=== PATIENT | female | born 1990 | race Caucasian/White ===

== ENCOUNTER 2021-02-08 03:08 | Emergency (ER) | payer MEDICAID, SELFPAY ==
--- NOTE | ~2021-02-08 | CT_ITS ---
EXAMINATION: CT ABDOMEN AND PELVIS WITH CONTRAST CLINICAL INFORMATION: Left flank and lower quadrant pain[place] [facility] [place] None. TECHNIQUE: Contiguous axial thin section helical images of the abdomen and pelvis were performed following the administration of 85 mL of intravenous Omnipaque 350. The data set was reformatted in the coronal and sagittal planes and reviewed on an independent workstation. DLP: 732 mGy-cm. FINDINGS: The visualized lung bases are clear. The visualized portions of the heart are unremarkable. The liver is of normal size and diffuse decreased attenuation without focal lesions nor intrahepatic biliary ductal dilation. A normal gallbladder is identified. There is no wall thickening or discernible pericholecystic fluid. The spleen, pancreas, adrenal glands are unremarkable. Both kidneys are of normal size and attenuation without hydronephrosis or nephrolithiasis. Following the administration of IV contrast, prompt symmetric nephrograms are displayed. There is no abdominal free fluid. There is neither mesenteric nor retroperitoneal lymphadenopathy. Normal unopacified loops of small and large bowel are identified. A normal appendix is identified. There is no pelvic free fluid. The urinary bladder is unremarkable. There is neither pelvic nor inguinal lymphadenopathy. Bone windows: Neither sclerotic nor lytic bone lesions are identified. CT/CT abdomen pelvis w con IMPRESSION: Neither hydronephrosis nor nephrolithiasis. No acute abdominal or pelvic inflammatory or infectious processes. Hepatic steatosis. Automated exposure control (Care Dose) Adjustment of the mA and/or kv according to patient size (this includes techniques or standardized protocols for targeted exams where dose is matched to indication / reason for exam; i.e. extremities or head).
[2021-02-08 03:44] VITALS: BP 148/95; PULSE 91; RESP 18; TEMP 37.1; O2SAT 98; BMI 31.4
[2021-02-08 04:00] VITALS: BP 148/95; PULSE 91; RESP 18; TEMP 37.1; O2SAT 98
[2021-02-08 04:20] LABS: Glucose Urine UA NEG (NEG); Leukocyte Esterase Urine NEG (NEG); Nitrite Urine POS (NEG); Specific Gravity - Urine >= 1.030 (1.005-1.025); Urine Blood 3+ (NEG); Urine Ketones 15 MG/DL (NEG); Urine Protein TRACE MG/DL (NEG-TRACE)
[2021-02-08 04:30] LABS: Appearance Urine HAZY; Bacteria Urine 2+ /LPF; Color Urine YELLOW; Mucus Urine 2+ /LPF; Squamous Epithelial Cell Urine 2+ /LPF
[2021-02-08 04:31] LABS: UPreg QC Valid YES; Urine Pregnancy NEGATIVE (NEGATIVE)
[2021-02-08] MEDS: ondansetron HCL 4 MG/2 ML VIAL IVPUSH (04:57)
[2021-02-08] MEDS: 0.9 % Sodium Chloride 1,000 ML 999 ML IV (04:57)
--- NOTE | 2021-02-08 05:02 | ED_ITS ---
HPI - Abdominal Pain General Chief Complaint: Abdominal Pain Stated Complaint: Flank pain Time Seen by Provider: 02/08/21 04:36 Source: patient Mode of arrival: ambulatory History of Present Illness HPI narrative: 30-year-old female without significant past medical history who presents with onset of left flank pain that radiates into left groin since yesterday with associated nausea and vomiting, chills. Otherwise, she denies any urinary pain/burning/frequency. Related Data Previous Rx's Medication Instructions Recorded ciprofloxacin HCl [Cipro] 500 mg PO Q12H 7 Days #14 tab 02/08/21 ondansetron HCl [Zofran] 4 mg PO Q8H PRN #3 tab 02/08/21 Allergies Allergy/AdvReac Type Severity Reaction Status Date / Time peanut [PEANUT] Allergy Intermediate ITCHINESS Verified 02/08/21 04:56 Review of Systems Review of Systems Pertinent positives and negatives as stated in HPI 10 point review of systems is otherwise negative. Physical Exam Vital Signs: Vital Signs: Last Vital Signs Temp 98.8 F 02/08/21 06:00 Pulse 77 02/08/21 06:00 Resp 15 02/08/21 06:00 BP 136/87 02/08/21 06:00 Pulse Ox 97 02/08/21 06:00 Body Mass Index 31.4 VITAL SIGNS: Reviewed. GENERAL: Well developed, well nourished, in no acute distress. HEAD: Normocephalic/atraumatic EYES: PERRLA, EOMI NOSE: Nares patent bilateral OROPHARYNX: no oral lesions noted, posterior pharynx clear NECK: Supple, no adenopathy LUNGS: Normal breath sounds. No adventitious sounds or accessory muscle use. SpO2<98> CARDIOVASCULAR: Regular rate and rhythm without noted murmurs ABDOMEN: Soft, tenderness at left flank/lower quadrant, non-distended with bowel sounds, no CVA tenderness NEUROLOGIC: Alert and oriented x 4. Course Course Course Narrative: 30-year-old female with history and clinical presentation consistent with renal colic, pyelonephritis, UTI but doubt diverticulitis. Review of all investigations supports pyelonephritis as CT scan is negative for acute findings. Patient received Rocephin here in the emergency department, was able to tolerate oral intake, and discharged on a course of antibiotics to treat the pyelonephritis. MDM - Abdominal Pain Lab Data Result diagrams: 02/08/21 04:53 04/14/21 04:53 Labs: Lab Results 02/08/21 02/08/21 02/08/21 Range/Units 04:10 04:10 04:53 WBC 11.1 H (4.8-10.8) X10*3/uL RBC 4.39 (4.20-5.50) X10*6/uL Hgb 14.3 (12.0-16.0) g/dl Hct 42.6 (37-47) % MCV 97.0 (80-98) fL MCH 32.6 (27.0-33.0) pg MCHC 33.6 (31.0-35.0) g/dl RDW 12.3 (11.0-16.0) % Plt Count 333 (160-400) X10*3/uL MPV 10.0 (9.4-12.3) fL Immature Gran % (Auto) 0.5 H (0.0-0.4) % Neut % (Auto) 79.7 H (45-73) % Lymph % (Auto) 11.9 L (20-40) % [place] % (Auto) 6.8 (2-11) % Eos % (Auto) 0.6 (0-4) % Baso % (Auto) 0.5 (0-2) % Lymph # (Auto) 1.3 (1.2-4.9) X10*3/uL [place] # (Auto) 0.8 (0.1-1.2) X10*3/uL Eos # (Auto) 0.1 (0.0-0.4) X10*3/uL Baso # (Auto) 0.1 (0.0-0.2) X10*3/uL Abs Immat Gran (auto) 0.06 H (0.00-0.03) X10*3/uL Absolute Neuts (auto) 8.8 H (2.0-8.3) X10*3/uL Absolute Nucleated RBC 0.000 (0.0-0.012) X10*3/uL Nucleated RBC % (auto) 0.0 (0.0-0.2) /100WBC Sodium (135-145) mmol/L Potassium (3.3-5.1) mmol/L Chloride (96-108) mmol/L Carbon Dioxide (22-29) mmol/L Anion Gap (12-20) BUN (9-16) mg/dL Creatinine (0.5-1.4) mg/dL Estim Creat Clear Calc Estimated GFR Random Glucose (60-115) mg/dL Calcium (8.4-10.2) mg/dL Total Bilirubin (0.0-1.0) mg/dL AST (5-31) U/L ALT (0-31) U/L Alkaline Phosphatase (39-117) U/L Total Protein (6.5-8.0) g/dL Albumin (3.5-5.0) g/dL Urine Color YELLOW Urine Appearance HAZY Urine pH 6.0 (5.0-8.0) Ur Specific [place] >= 1.030 H (1.005-1.025) Urine Protein TRACE (NEG-TRACE) MG/DL Urine Glucose (UA) NEG (NEG) MG/DL Urine Ketones 15 (NEG) MG/DL Urine Blood 3+ H (NEG) Urine Nitrite POS H (NEG) Ur Leukocyte Esterase NEG (NEG) Urine RBC 76-150 H (0) /HPF Urine WBC 10-14 H (0-4) /HPF Ur Squamous Epith Cells 2+ /LPF Urine Bacteria 2+ /LPF Urine Mucus 2+ /LPF Urine Test NEGATIVE (NEGATIVE) 02/08/21 Range/Units 04:53 WBC (4.8-10.8) X10*3/uL RBC (4.20-5.50) X10*6/uL Hgb (12.0-16.0) g/dl Hct (37-47) % MCV (80-98) fL MCH (27.0-33.0) pg MCHC (31.0-35.0) g/dl RDW (11.0-16.0) % Plt Count (160-400) X10*3/uL MPV (9.4-12.3) fL Immature Gran % (Auto) (0.0-0.4) % Neut % (Auto) (45-73) % Lymph % (Auto) (20-40) % [place] % (Auto) (2-11) % Eos % (Auto) (0-4) % Baso % (Auto) (0-2) % Lymph # (Auto) (1.2-4.9) X10*3/uL [place] # (Auto) (0.1-1.2) X10*3/uL Eos # (Auto) (0.0-0.4) X10*3/uL Baso # (Auto) (0.0-0.2) X10*3/uL Abs Immat Gran (auto) (0.00-0.03) X10*3/uL Absolute Neuts (auto) (2.0-8.3) X10*3/uL Absolute Nucleated RBC (0.0-0.012) X10*3/uL Nucleated RBC % (auto) (0.0-0.2) /100WBC Sodium 139 (135-145) mmol/L Potassium 4.0 (3.3-5.1) mmol/L Chloride 104 (96-108) mmol/L Carbon Dioxide 26 (22-29) mmol/L Anion Gap 13 (12-20) BUN 7 L (9-16) mg/dL Creatinine 0.68 (0.5-1.4) mg/dL Estim Creat Clear Calc 133.0 Estimated GFR > 60 Random Glucose 119 H (60-115) mg/dL Calcium 9.6 (8.4-10.2) mg/dL Total Bilirubin 0.9 (0.0-1.0) mg/dL AST 73 H (5-31) U/L ALT 83 H (0-31) U/L Alkaline Phosphatase 117 (39-117) U/L Total Protein 7.4 (6.5-8.0) g/dL Albumin 4.4 (3.5-5.0) g/dL Urine Color Urine Appearance Urine pH (5.0-8.0) Ur Specific [place] (1.005-1.025) Urine Protein (NEG-TRACE) MG/DL Urine Glucose (UA) (NEG) MG/DL Urine Ketones (NEG) MG/DL Urine Blood (NEG) Urine Nitrite (NEG) Ur Leukocyte Esterase (NEG) Urine RBC (0) /HPF Urine WBC (0-4) /HPF Ur Squamous Epith Cells /LPF Urine Bacteria /LPF Urine Mucus /LPF Urine Test (NEGATIVE) Discharge Plan Discharge Clinical Impression: Pyelonephritis Patient Disposition: Home, Self-Care Instructions: Kidney Infection (ED) Additional Instructions: 1. Tylenol 1000 mg, orally, every 6 hours as needed for pain control. Do not exceed 4000 mg within 24 hours. Prescriptions: New ciprofloxacin HCl [Cipro] 500 mg tablet 500 mg PO Q12H 7 Days Qty: 14 RF: 0 ondansetron HCl [Zofran] 4 mg tablet 4 mg PO Q8H PRN (Reason: nausea and vomiting) Qty: 3 RF: 0 PMFSH Past Medical History Source: nursing notes reviewed Medical History No known health problems Surgical History No history of previous surgery Social History Social History Use of substances other than those prescribed or required for medical reasons: Yes Substance Use Type: Marijuana Substance Use Frequency: Occasionally Advance Directives: No
[2021-02-08 05:04] LABS: MANUAL DIFF FLAG NO
[2021-02-08 05:06] LABS: Basophils Absolute Auto 0.1 X10*3/uL (0.0-0.2); Basophils Percent Auto 0.5 % (0-2); Eosinophils Absolute Auto 0.1 X10*3/uL (0.0-0.4); Eosinophils Percent Auto 0.6 % (0-4); Hematocrit 42.6 % (37-47); Hemoglobin 14.3 g/dl (12.0-16.0); Imm Gran Abs Auto 0.06 X10*3/uL (0.00-0.03); Imm Gran Pct Auto 0.5 % (0.0-0.4); Lymphocytes Absolute Auto 1.3 X10*3/uL (1.2-4.9); Lymphocytes Percent Auto 11.9 % (20-40); Mean Corpuscular HGB Conc 33.6 g/dl (31.0-35.0); Mean Corpuscular Hemoglobin 32.6 pg (27.0-33.0); Monocytes Absolute Auto 0.8 X10*3/uL (0.1-1.2); Monocytes Percent Auto 6.8 % (2-11); Neutrophils Absolute Auto 8.8 X10*3/uL (2.0-8.3); Neutrophils Percent Auto 79.7 % (45-73); Platelet Count 333 X10*3/uL (160-400); Red Blood Count 4.39 X10*6/uL (4.20-5.50); Red Cell Distribution Width 12.3 % (11.0-16.0); White Blood Count 11.1 X10*3/uL (4.8-10.8)
[2021-02-08 05:39] LABS: Alanine Aminotransferase 83 U/L (0-31); Albumin Level 4.4 g/dL (3.5-5.0); Alkaline Phosphatase 117 U/L (39-117); Anion Gap 13 (12-20); Aspartate Amino Transferase 73 U/L (5-31); Bilirubin Total 0.9 mg/dL (0.0-1.0); Blood Urea Nitrogen 7 mg/dL (9-16); Calcium 9.6 mg/dL (8.4-10.2); Carbon Dioxide 26 mmol/L (22-29); Chloride 104 mmol/L (96-108); Estimated Glomerular Filt Rate > 60; Glucose Random 119 mg/dL (60-115); Sodium 139 mmol/L (135-145); Total Protein 7.4 g/dL (6.5-8.0)
[2021-02-08] MEDS: iohexoL 350 MG/ML 100 ML INFUS..BTL 85 ML IV (05:56)
[2021-02-08 06:00] VITALS: BP 136/87; PULSE 77; RESP 15; TEMP 37.1; O2SAT 97
== END 2021-02-08 07:13 | disposition home or self-care (01) ==
PROVIDERS: Emergency Provider Student in an Organized Health Care Education/Training Program; PCP Internal Medicine
DX: N12 Tubulo-interstitial nephritis, not specified as acute or chronic (principal); R10.9 Unspecified abdominal pain; F12.90 Cannabis use, unspecified, uncomplicated
CPT/HCPCS: 36415; 74177; 80053; 81001; 81025; 85025; 96361; 96365; 96374; 96375; 99284; J2405; Q9967

== ENCOUNTER 2021-02-10 07:01 | Emergency (ER) | payer MEDICAID, SELFPAY ==
--- NOTE | ~2021-02-10 | US_ITS ---
EXAMINATION: LEFT RENAL ULTRASOUND CLINICAL INFORMATION: Left flank pain. Rule out hydronephrosis. COMPARISON: CT scan of February 08, 2021 TECHNIQUE: Limited scanning of the left kidney and urinary bladder with right kidney not being studied per request of the emergency room doctor. FINDINGS: Ultrasound of the left kidney demonstrates fullness of the left renal pelvis without definite renal calculi identified.. Review of a CT scan performed yesterday demonstrates that there was a 5 mm calculus within the proximal left ureter. US/US renal LT IMPRESSION: Mild fullness of the left upper collecting system. 5 mm calculus is noted on previous day's CT scan in the proximal left ureter. This critical result was discussed with Yony Sarabia at 9:20 AM on February 10, 2021 and it was ascertained that the content and urgency of the report was understood at the time of direct communication.
[2021-02-10 07:10] VITALS: BP 163/97; PULSE 81; RESP 16; TEMP 36.7; O2SAT 100; BMI 31.4
[2021-02-10 07:35] VITALS: BP 146/87; PULSE 81; RESP 16; TEMP 36.7; O2SAT 99
--- NOTE | 2021-02-10 07:40 | ED.GENADULT ---
HPI - General Adult General Chief complaint: General Medical Stated complaint: KIDNEY INECTION LOWER BACK PAIN Time Seen by Provider: 02/10/21 07:22 Source: patient Mode of arrival: ambulatory Limitations: no limitations History of Present Illness HPI narrative: 30-year-old female who presents emergency department for evaluation of left flank pain. The patient was seen on 02/08/2021 and diagnosed with pyelonephritis. At that time her symptoms included severe left-sided flank pain with nausea. The patient's workup at her 1st ED visit reveals RBCs and WBCs under microscopic evaluation with 2+ bacteria. She had a CT scan of the abdomen pelvis without IV contrast which revealed no hydronephrosis, no hydroureter no renal calculi. She was treated with ceftriaxone IV and given a prescription for Cipro. She states that her flank pain improved but never went away completely. She states that this morning at 3:30 a.m. she woke up with severe left-sided flank pain radiating to her left lower abdomen. The pain is a constant pressure-like pain with shooting pain that is intermittent. The patient states that she had nausea associated with the pain but then it vomiting. She felt cold and clammy but did not have a fever at home. She states that her pain was 8/10 at its worst and is 8/10 in the emergency department. The patient states that she had a urinary tract infection 1 year prior but her symptoms were different at that time. Related Data Previous Rx's Medication Instructions Recorded ciprofloxacin HCl [Cipro] 500 mg PO Q12H 7 Days #14 tab 02/08/21 ondansetron HCl [Zofran] 4 mg PO Q8H PRN #3 tab 02/08/21 oxycodone 5 mg PO Q4H PRN #14 tab 02/10/21 Allergies Allergy/AdvReac Type Severity Reaction Status Date / Time peanut [PEANUT] Allergy Intermediate ITCHINESS Verified 02/08/21 04:56 Review of Systems Review of Systems: Yes all other systems are reviewed and are negative [facility] Past Medical History [facility] Narrative: Past medical history significant for ADHD, the patient denies tobacco use, she rarely drinks alcohol, she denies drug use. Medical History No known health problems Surgical History No history of previous surgery Social History Social History Alcohol intake: current Alcohol intake frequency: holidays/special occasions only Alcohol type: beer Smoking Status: Never smoker Use of substances other than those prescribed or required for medical reasons: Yes Substance Use Type: Marijuana Last Used Substance: Weeks (ago) Advance Directives: No Advance Directives Information Provided: No Physical Exam Vital Signs: Vital Signs: Last Vital Signs Temp 98.1 F 02/10/21 07:35 Pulse 71 02/10/21 09:03 Resp 16 02/10/21 09:03 BP 133/82 02/10/21 09:03 Pulse Ox 100 02/10/21 09:03 Body Mass Index 31.4 Const: General: cooperative and healthy appearing Orientation/consciousness: oriented to person and oriented to place Limitations: no limitations HENMT: Head: Yes normal to inspection, Yes normocephalic and Yes atraumatic Ears: external ears normal General nose exam: Normal external nose present Face and sinus: Yes normal facial exam Mouth: Normal oral and palatal mucosa present Throat: Yes posterior oropharynx normal Eyes: Periorbital: periorbital findings normal Eyelids: Yes eyelids normal Conjunctivae: conjunctivae normal Sclerae: sclerae normal Corneas: corneas normal Pupils: Equal, round and reactive pupils present Direct Ophthalmoscopy: normal light reflex Neck: Neck: Yes full ROM, Yes no lymphadenopathy, Yes no meningeal signs, Yes trachea midline and Yes supple Chest: Chest palpation & inspection: normal inspection of the chest and normal palpation of entire chest wall Resp: Effort & Inspection: normal respiratory effort and able to speak in complete sentences Auscultation: clear to auscultation bilaterally Cardio: Rate: regular rate Rhythm: regular rhythm Heart sounds: S1 normal heart sound present, S2 normal heart sound present and no murmurs GI: Inspection: Yes normal to inspection Palpation (GI): Soft to palpation, nontender, no guarding, not rigid and No hepatosplenomegaly present : General: Yes CVA tenderness on the left (Moderate) Back/Spine/Pelvis: Back: CVA tenderness Cervical Spine: normal cervical lordosis Thoracic/Lumbar Spine: thoracic and lumbar spine normal to inspection Skin: Lesions: no lesions Rashes: no rashes Wounds: no wounds Neuro: General: oriented to person, oriented to place and no meningeal signs Cranial nerves: Yes CN's II-XII intact bilaterally and Yes Equal, round and reactive pupils present Cognition (Neuro): normal cognition Motor exam (neuro): 5/5 motor strength present throughout Extrem: General: Yes normal to inspection and Yes full ROM Psych: Appearance: well kempt Mental Status: mental status grossly normal Speech and movement: Normal speech and movement present Affect: normal affect Attitude: cooperative Thought process: Normal thought process present Thought content: Normal thought content present Course Course Course Narrative: 30-year-old female who presents emergency department for evaluation of left flank pain radiating to the left lower quadrant, nausea, and diaphoresis which came on suddenly today at 3:30 a.m.. This is the patient's 2nd visit for this complaint, she was seen on 02/08/2021. At that visit she was diagnosed with pyelonephritis based on her urinalysis and symptoms, she had a CT abdomen pelvis without IV contrast which revealed no acute abnormalities. The patient's physical examination did reveal hypertension with a blood pressure of 163/97 otherwise normal vital signs and left-sided flank/CVA tenderness. I ordered a CBC, CMP, lipase, urinalysis and ultrasound of the patient's left kidney/bladder/ureter to evaluate the patient for possible hydronephrosis. Patient was ordered to get normal saline IV x1 L. Her nausea and abdominal pain were treated with Zofran 4 mg IV and Toradol 30 mg IV. 0939: The patient's pain improved to 3 to 4/10 with the IV Toradol. She does not want any further pain medication. The patient's laboratory evaluation revealed an elevated AST and ALT of 65 and 78, the patient states that she is aware of this and follows up with a doctor for or elevated LFTs. Patient's urinalysis revealed 15-29 RBCs with no WBCs and no bacteria. Ultrasound did reveal mild left hydronephrosis. The radiologist that read the ultrasound also reviewed the CT scan of the abdomen pelvis without IV contrast that was done yesterday. He felt that the patient does have a 5 mm proximal ureteral stone on this study and this is probably the cause of her pain. I did discuss this discrepancy with the patient. The patient will be discharged home with printed and verbal instructions on ureteral stones. The patient was advised to continue taking ibuprofen and Tylenol and she was given a prescription for oxycodone for pain not relieved by the other medications. She will need to follow-up with our urologist. [facility] search revealed prescriptions on a regular basis for Adderall, no narcotic prescriptions. Medical Decision Making Lab Data Result diagrams: 02/10/21 08:02 02/10/21 08:02 Labs: Lab Results 02/10/21 02/10/21 02/10/21 Range/Units 07:26 08:02 08:02 WBC 9.2 (4.8-10.8) X10*3/uL RBC 4.22 (4.20-5.50) X10*6/uL Hgb 13.8 (12.0-16.0) g/dl Hct 40.8 (37-47) % MCV 96.7 (80-98) fL MCH 32.7 (27.0-33.0) pg MCHC 33.8 (31.0-35.0) g/dl RDW 12.0 (11.0-16.0) % Plt Count 292 (160-400) X10*3/uL MPV 9.8 (9.4-12.3) fL Immature Gran % (Auto) 1.0 H (0.0-0.4) % Neut % (Auto) 75.1 H (45-73) % Lymph % (Auto) 15.8 L (20-40) % [place] % (Auto) 5.4 (2-11) % Eos % (Auto) 2.4 (0-4) % Baso % (Auto) 0.3 (0-2) % Lymph # (Auto) 1.5 (1.2-4.9) X10*3/uL [place] # (Auto) 0.5 (0.1-1.2) X10*3/uL Eos # (Auto) 0.2 (0.0-0.4) X10*3/uL Baso # (Auto) 0.0 (0.0-0.2) X10*3/uL Abs Immat Gran (auto) 0.09 H (0.00-0.03) X10*3/uL Absolute Neuts (auto) 6.9 (2.0-8.3) X10*3/uL Absolute Nucleated RBC 0.000 (0.0-0.012) X10*3/uL Nucleated RBC % (auto) 0.0 (0.0-0.2) /100WBC Sodium 137 (135-145) mmol/L Potassium 3.9 (3.3-5.1) mmol/L Chloride 102 (96-108) mmol/L Carbon Dioxide 25 (22-29) mmol/L Anion Gap 14 (12-20) BUN 11 D (9-16) mg/dL Creatinine 0.72 (0.5-1.4) mg/dL Estim Creat Clear Calc 125.6 Estimated GFR > 60 Random Glucose 104 (60-115) mg/dL Calcium 8.9 D (8.4-10.2) mg/dL Total Bilirubin 0.9 (0.0-1.0) mg/dL AST 65 H (5-31) U/L ALT 78 H (0-31) U/L Alkaline Phosphatase 105 (39-117) U/L Total Protein 6.9 (6.5-8.0) g/dL Albumin 4.2 (3.5-5.0) g/dL Lipase 11 (8-78) U/L Urine Color DARK YELLOW Urine Appearance HAZY Urine pH 5.0 (5.0-8.0) Ur Specific [place] >= 1.030 H (1.005-1.025) Urine Protein 1+ H (NEG-TRACE) MG/DL Urine Glucose (UA) NEG (NEG) MG/DL Urine Ketones NEG (NEG) MG/DL Urine Blood 3+ H (NEG) Urine Nitrite NEG (NEG) Ur Leukocyte Esterase NEG (NEG) Urine RBC 15-29 H (0) /HPF Urine WBC 0 (0-4) /HPF Ur Squamous Epith Cells 2+ /LPF Calcium Oxalate Crystal 1+ /LPF Urine Bacteria NONE /LPF Discharge Plan Discharge Clinical Impression: Calculus of proximal left ureter, Renal colic on left side Patient Disposition: Home, Self-Care Instructions: Kidney Stones (ED), How to Strain Your Urine (ED) Additional Instructions: Your laboratory evaluation was unremarkable except for a slight elevation in her AST and ALT of 65 and 78. Your urinalysis improved in the sense that there was no white blood cells and bacteria but she still have red blood cells in your urine. The ultrasound of your kidney revealed mild swelling of your left kidney. The radiologist today re-examined your CT scan from yesterday and believes that you have a 5 mm proximal ureteral stone (the stone is in the tube that connects the kidney to the bladder and it is closer to the kidney than the bladder). This most likely explains your pain today. Take ibuprofen 200 mg pills, 3 pills every 6 hours as needed for pain. Take Tylenol (acetaminophen) 500 mg pills, 2 pills every 4 to 6 hours as needed for pain. For pain not relieved by the above medications take oxycodone 5 mg pills, 1 pill every 4-6 hours as needed for pain. Oxycodone is a narcotic medication and can be addicting. This medication will make you sleepy, do not drive while taking this medication. If you worried about addiction do not get this medication filled or you can ask your pharmacist to give you less pills. Finish your prescription antibiotics. Strain your urine, if you catch the stone bring it to the urologist. Follow-up with our on-call urologist, Dr. Osborne. Please return to the emergency department if your symptoms get worse or if you develop any symptoms that are concerning to you. Prescriptions: New oxycodone 5 mg tablet 5 mg PO Q4H PRN (Reason: pain) Qty: 14 RF: 0 No Action ciprofloxacin HCl [Cipro] 500 mg tablet 500 mg PO Q12H 7 Days Qty: 14 RF: 0 ondansetron HCl [Zofran] 4 mg tablet 4 mg PO Q8H PRN (Reason: nausea and vomiting) Qty: 3 RF: 0 Referrals: Raghu Osborne MD [Physician] - 1 week Yony Goodman MD [Emergency Provider] - 2 days
[2021-02-10 07:44] LABS: Glucose Urine UA NEG (NEG); Leukocyte Esterase Urine NEG (NEG); Nitrite Urine NEG (NEG); Specific Gravity - Urine >= 1.030 (1.005-1.025); Urine Blood 3+ (NEG); Urine Ketones NEG (NEG); Urine Protein 1+ MG/DL (NEG-TRACE)
--- NOTE | 2021-02-10 07:45 | PC.NURSE ---
PT REPORTS LEFT LOWER ABD PAIN 8/10 RADIATES TO FLANK. CURRENTLY ON CIPRO FOR SUSPECTED UTI. ER PROVIDER AT BEDSIDE. PT AWAITING ULTRA SOUND.
[2021-02-10 07:47] LABS: Appearance Urine HAZY; Color Urine DARK YELLOW
[2021-02-10 07:54] LABS: Calcium Oxalate Crystals Urine 1+ /LPF; Squamous Epithelial Cell Urine 2+ /LPF; WBC Urine 0 /HPF (0-4)
[2021-02-10] MEDS: ondansetron HCL 4 MG/2 ML VIAL IVPUSH (07:56)
[2021-02-10] MEDS: Ketorolac Tromethamine 30 MG/ML VIAL IVPUSH (07:57)
[2021-02-10] MEDS: 0.9 % Sodium Chloride 1,000 ML 999 ML IV (08:08)
[2021-02-10 08:09] LABS: MANUAL DIFF FLAG NO
[2021-02-10 08:16] LABS: Basophils Percent Auto 0.3 % (0-2); Eosinophils Absolute Auto 0.2 X10*3/uL (0.0-0.4); Eosinophils Percent Auto 2.4 % (0-4); Hematocrit 40.8 % (37-47); Hemoglobin 13.8 g/dl (12.0-16.0); Imm Gran Abs Auto 0.09 X10*3/uL (0.00-0.03); Lymphocytes Absolute Auto 1.5 X10*3/uL (1.2-4.9); Lymphocytes Percent Auto 15.8 % (20-40); Mean Corpuscular HGB Conc 33.8 g/dl (31.0-35.0); Mean Corpuscular Hemoglobin 32.7 pg (27.0-33.0); Mean Corpuscular Volume 96.7 fL (80-98); Mean Platelet Volume 9.8 fL (9.4-12.3); Monocytes Absolute Auto 0.5 X10*3/uL (0.1-1.2); Monocytes Percent Auto 5.4 % (2-11); Neutrophils Absolute Auto 6.9 X10*3/uL (2.0-8.3); Neutrophils Percent Auto 75.1 % (45-73); Platelet Count 292 X10*3/uL (160-400); Red Blood Count 4.22 X10*6/uL (4.20-5.50); White Blood Count 9.2 X10*3/uL (4.8-10.8)
[2021-02-10 08:37] LABS: Alanine Aminotransferase 78 U/L (0-31); Albumin Level 4.2 g/dL (3.5-5.0); Alkaline Phosphatase 105 U/L (39-117); Anion Gap 14 (12-20); Aspartate Amino Transferase 65 U/L (5-31); Bilirubin Total 0.9 mg/dL (0.0-1.0); Blood Urea Nitrogen 11 mg/dL (9-16); Calcium 8.9 mg/dL (8.4-10.2); Carbon Dioxide 25 mmol/L (22-29); Chloride 102 mmol/L (96-108); Creatinine Clr Calc Pharmacy 125.6; Estimated Glomerular Filt Rate > 60; Glucose Random 104 mg/dL (60-115); Lipase 11 U/L (8-78); Potassium 3.9 mmol/L (3.3-5.1); Sodium 137 mmol/L (135-145); Total Protein 6.9 g/dL (6.5-8.0)
--- NOTE | 2021-02-10 08:58 | PC.NURSE ---
ultrasound at bedside
[2021-02-10 09:03] VITALS: BP 133/82; PULSE 71; RESP 16; O2SAT 100
== END 2021-02-10 10:26 | disposition home or self-care (01) ==
PROVIDERS: Emergency Provider Emergency Medicine Emergency Medical Services; PCP Internal Medicine
DX: N20.2 Calculus of kidney with calculus of ureter (principal); M54.5 Low back pain; R10.32 Left lower quadrant pain; F12.90 Cannabis use, unspecified, uncomplicated; Z79.899 Other long term (current) drug therapy
CPT/HCPCS: 36415; 76775; 80053; 81001; 83690; 85025; 96365; 96375; 99284; J1885; J2405

== ENCOUNTER 2021-07-15 11:53 | Emergency (ER) | payer MEDICAID, SELFPAY ==
--- NOTE | ~2021-07-15 | CT_ITS ---
EXAMINATION: CT ABDOMEN AND PELVIS WITH CONTRAST CLINICAL INFORMATION: Right upper quadrant/flank pain COMPARISON: Previous renal ultrasound and CT of the abdomen and pelvis January 2021 TECHNIQUE: Multidetector volumetric images were obtained from the superior aspect of the liver through the pubic symphysis following administration 85 mL of Omnipaque 350 intravenous contrast. Sagittal and coronal reformatted images were obtained on the technologist's workstation. Oral contrast: Yes This CT examination was performed using dose optimization techniques as appropriate, variously including the following: *Automated exposure control *Adjustment of mA and/or kV according to patient size (this includes techniques or standardized protocols for targeted exams where dose is matched to indication/reason for exam; i.e. extremities or head) *Use of iterative reconstruction technique DLP: 819 mGy-cm FINDINGS: LUNG BASES: The visualized lung bases are unremarkable. LIVER, GALLBLADDER, AND BILIARY TREE: Enlarged fatty liver. The gallbladder is unremarkable with no evidence of radiopaque gallstones, gallbladder wall thickening, or obvious pericholecystic inflammatory changes. PANCREAS: Unremarkable. SPLEEN: Unremarkable. ADRENAL GLANDS: Unremarkable. KIDNEYS AND URETERS: There is a 3 mm stone in the right renal pelvis. No hydronephrosis is seen. Evaluation for a small renal stones is limited due to excreted contrast in the collecting systems. BLADDER: Not optimally distended and not well evaluated. GASTROINTESTINAL TRACT: There is fatty infiltration of the wall of the colon, particularly the left colon and sigmoid colon. This is a nonspecific finding. Small and large bowel is otherwise unremarkable. The appendix is unremarkable. The stomach is unremarkable. ABDOMINAL WALL: No significant hernia is appreciated. LYMPH NODES: Normal. VASCULAR: Unremarkable. PELVIC VISCERA: Unremarkable. OSSEOUS STRUCTURES: Unremarkable. CT/CT abdomen pelvis w con IMPRESSION: 3 mm stone in the central right kidney/right renal pelvis. No hydronephrosis. Enlarged fatty liver.
[2021-07-15 12:24] VITALS: BP 172/105; PULSE 87; RESP 18; TEMP 36.8; O2SAT 99; BMI 32.3
--- NOTE | 2021-07-15 13:49 | ED_ITS ---
HPI - Abdominal Pain General Chief Complaint: Abdominal Pain <COLEEN Edmonds - Last Filed: 07/15/21 16:13> Stated Complaint: ABD SIDE PAIN INTO BACK <COLEEN Edmonds - Last Filed: 07/15/21 16:13> Time Seen by Provider: 07/15/21 12:59 <COLEEN Edmonds - Last Filed: 07/15/21 16:13> Source: patient <COLEEN Edmonds - Last Filed: 07/15/21 16:13> Mode of arrival: ambulatory <COLEEN Edmonds - Last Filed: 07/15/21 16:13> Limitations: no limitations <COLEEN Edmonds Last Filed: 07/15/21 16:13> History of Present Illness HPI narrative: This is a 31-year-old female with a past medical history of pyelo, and renal stones who presents to the emergency department with right upper quadrant pain, dark urine, and bilateral flank pain for 6 days. Today she states that she is having 6/10, constant right upper quadrant pain. She also states that she is having bilateral flank pain. She also does feels as though her stomach is bloated. She states that her urine is still darker than usual. She reports she is able to keep down fluids, but whenever she eats solids it causes her worsening abdominal pain. Her abdominal pain is improved when standing. She states earlier this week she called her urologist to schedule an appointment because she was experiencing dark urine (orange in color), and bilateral flank pain. She states that she saw them on Saturday, she had a UA done, the results are still pending. She states that she used to drink a lot more alcohol than she currently does, she currently has about 3-4 drinks a week. Her last menstrual period was a week ago. She does not think she is at this time. She denies fevers, chills, chest pain, shortness of breath, changes in bowel habits, numbness, tingling, paresthesias, vomiting, diarrhea. She is passing flatus. She also denies trauma to the area. She denies any prior abdominal surgeries. <COLEEN Edmonds Last Filed: 07/15/21 16:13> MD elicited complaint: abdominal pain and flank pain <COLEEN Edmonds - Last Filed: 07/15/21 16:13> Pertinent past history: other (Kidney stones, pyelonephritis.) <COLEEN Edmonds - Last Filed: 07/15/21 16:13> Onset (ago): day(s) (Six days progressively worsening) <COLEEN Edmonds - Last Filed: 07/15/21 16:13> Pain Consistency: constant <COLEEN Edmonds - Last Filed: 07/15/21 16:13> Location: RUQ, L flank and R flank <COLEEN Edmonds - Last Filed: 07/15/21 16:13> Severity: moderate <COLEEN Edmonds - Last Filed: 07/15/21 16:13> Pain scale (0-10): 6 <COLEEN Edmonds - Last Filed: 07/15/21 16:13> Quality: cramping <COLEEN Edmonds - Last Filed: 07/15/21 16:13> Exacerbating factors: eating and movement <COLEEN Edmonds - Last Filed: 07/15/21 16:13> Relieving factors: other (Standing upright) <COLEEN Edmonds - Last Filed: 07/15/21 16:13> Associated symptoms: nausea <COLEEN Edmonds - Last Filed: 07/15/21 16:13> Related Data Home Medications: Previous Rx's Medication Instructions Recorded ciprofloxacin HCl 500 mg tablet 500 mg PO Q12H 7 Days #14 tab 02/08/21 (Cipro) ondansetron HCl 4 mg tablet 4 mg PO Q8H PRN #3 tab 02/08/21 (Zofran) oxycodone 5 mg tablet 5 mg PO Q4H PRN #14 tab 02/10/21 cefuroxime axetil 500 mg tablet 500 mg PO BID 7 Days #14 tab 07/15/21 ondansetron HCl 4 mg tablet 4 mg PO Q8H PRN #10 tab 07/15/21 (Zofran) <COLEEN Edmonds - Last Filed: 07/15/21 16:13> Allergies/Adverse Reactions: Allergies Allergy/AdvReac Type Severity Reaction Status Date / Time peanut [PEANUT] Allergy Intermediate ITCHINESS Verified 02/08/21 04:56 <COLEEN Edmonds - Last Filed: 07/15/21 16:13> Review of Systems Review of Systems Constitutional: No Fever, No Chills ENT/Mouth: No sore throat, No Rhinorrhea, No Swallowing Difficulty Eyes: No Eye Pain, No Swelling, No Redness Cardiovascular: No Chest Pain, No SOB, No Orthopnea, No Edema Respiratory: No Cough, No Sputum, No Wheezing, No dyspnea Gastrointestinal: + Nausea, No Vomiting, No Diarrhea, + abdominal Pain, No Hematochezia, No Melena Genitourinary: No Dysuria, No Urinary Frequency, No Hematuria, + dark urine Musculoskeletal: No joint pain, No Myalgias, + flank pain Skin: No Skin Lesions, No rash Neuro: No Weakness, No Numbness, No Dizziness, No Headache Psych: No Anxiety/Panic, No Depression Heme/Lymph: No Bruising, No Lymphadenopathy Endocrine: No Polyuria, No Polydipsia <COLEEN Edmonds - Last Filed: 07/15 16:13> Physical Exam Vital Signs: Vital Signs: Last Vital Signs Temp 98.2 F 07/15/21 12:24 Pulse 82 07/15/21 15:31 Resp 18 07/15/21 15:31 BP 138/92 H 07/15/21 15:31 Pulse Ox 99 07/15/21 12:24 Body Mass Index 32.3 <COLEEN Edmonds - Last Filed: 07/15/21 16:13> Vital Signs: Last Vital Signs Temp 98.2 F 07/15/21 12:24 Pulse 82 07/15/21 15:31 Resp 18 07/15/21 15:31 BP 138/92 H 07/15/21 15:31 Pulse Ox 99 07/15/21 12:24 Body Mass Index 32.3 <Dandy Shaffer MD - Last Filed: 07/16/21 01:43> Appearance: Alert. Oriented X3. No acute distress. Patient standing due to pain. She states standing makes it better. Eyes: Pupils equal, round and reactive to light. ENT: Pharynx normal. Neck: Normal inspection. Neck supple. CVS: Normal heart rate and rhythm. Pulses normal. Respiratory: No respiratory distress. Breath sounds normal. Abdomen: Soft and + tenderness to palpation to right upper quadrant, no halt in inspiration with palpation. +BS x4, + bloated abdomen, + mild bilateral CVA tenderness Skin: Skin warm and dry. Normal skin color. Normal skin turgor. No rashes. No diaphoresis Extremities: No lower extremity edema. Neuro: Oriented X 3. No motor deficit. No sensory deficit. <COLEEN Edmonds - Last Filed: 07/15/21 16:13> Course Course Course Narrative: This is a 31-year-old female with a past medical history of pyelo (02/08/2021), and renal stones who presents to the emergency department with right upper quadrant pain, dark urine, and bilateral flank pain for 6 days. Today she states that she is having 6/10, constant right upper quadrant pain. She also states that she is having bilateral flank pain. She also does feels as though her stomach is bloated. She states that her urine is still darker than usual. She reports she is able to keep down fluids, but whenever she eats solids it causes her worsening abdominal pain. Her abdominal pain is improved when standing. Basic labs have been ordered, as well as a UA, and urine test. Based on these labs will decide whether or not imaging is needed at this time. Labs show mild leukocytosis 10.9, her LFTs w elevated AST 132 ALT 87, her alk- phos 137. Her UA shows 3+ protein 3+ blood, and trace leukocyte esterase. Based off patient's history, and these findings a CT of the abdomen and pelvis with contrast has been ordered. <COLEEN Edmonds - Last Filed: 07/15/21 16:13> Reevaluation(s) Reevaluation #1: CT scan shows a 3 mm stone in the central right kidney/renal pelvis. Without hydronephrosis. It also shows an enlarged fatty liver. These results were discussed with the patient. Based off of labs, imaging, UA and patient physical exam she will be treated for urinary tract infection. She will be sent home on antibiotics. She is stable for discharge, with outpatient follow-up with her PCP, and/or Urology. <COLEEN Edmonds - Last Filed: 07/15/21 16:13> MDM - Abdominal Pain Lab Data Result diagrams: : 07/15/21 14:15 07/15/21 14:15 <COLEEN Edmonds - Last Filed: 07/15/21 16:13> Labs: Lab Results 07/15/21 07/15/21 07/15/21 Range/Units 14:15 14:15 14:15 WBC 10.9 H (4.8-10.8) X10*3/uL RBC 4.10 L (4.20-5.50) X10*6/uL Hgb 14.6 (12.0-16.0) g/dl Hct 42.4 (37-47) % MCV 103.4 H (80-98) fL MCH 35.6 H (27.0-33.0) pg MCHC 34.4 (31.0-35.0) g/dl RDW 12.7 (11.0-16.0) % Plt Count 280 (160-400) X10*3/uL MPV 9.6 (9.4-12.3) fL Immature Gran % (Auto) 1.6 H (0.0-0.4) % Neut % (Auto) 74.3 H (45-73) % Lymph % (Auto) 16.2 L (20-40) % Howard % (Auto) 6.7 (2-11) % Eos % (Auto) 0.7 (0-4) % Baso % (Auto) 0.5 (0-2) % Lymph # (Auto) 1.8 (1.2-4.9) X10*3/uL Howard # (Auto) 0.7 (0.1-1.2) X10*3/uL Eos # (Auto) 0.1 (0.0-0.4) X10*3/uL Baso # (Auto) 0.1 (0.0-0.2) X10*3/uL Abs Immat Gran (auto) 0.18 H (0.00-0.03) X10*3/uL Absolute Neuts (auto) 8.1 (2.0-8.3) X10*3/uL Absolute Nucleated RBC 0.000 (0.0-0.012) X10*3/uL Nucleated RBC % (auto) 0.0 (0.0-0.2) /100WBC Sodium 137 (135-145) mmol/L Potassium 4.1 (3.3-5.1) mmol/L Chloride 100 (96-108) mmol/L Carbon Dioxide 27 (22-29) mmol/L Anion Gap 14 (12-20) BUN 5 L D (9-16) mg/dL Creatinine 0.68 (0.5-1.4) mg/dL Estim Creat Clear Calc 133.5 Estimated GFR > 60 Random Glucose 109 (60-115) mg/dL Calcium 9.7 D (8.4-10.2) mg/dL Magnesium 1.8 (1.6-2.6) mg/dL Total Bilirubin 0.9 (0.0-1.0) mg/dL Direct Bilirubin 0.5 (0.0-0.5) mg/dL AST 132 H (5-31) U/L ALT 87 H (0-31) U/L Alkaline Phosphatase 137 H D (39-117) U/L Total Protein 7.6 (6.5-8.0) g/dL Albumin 4.4 (3.5-5.0) g/dL Lipase 16 (8-78) U/L Urine Color Urine Appearance Urine pH (5.0-8.0) Ur Specific Hartfield (1.005-1.025) Urine Protein (NEG-TRACE) MG/DL Urine Glucose (UA) (NEG) MG/DL Urine Ketones (NEG) MG/DL Urine Blood (NEG) Urine Nitrite (NEG) Ur Leukocyte Esterase (NEG) Urine RBC (0) /HPF Urine WBC (0-4) /HPF Ur Squamous Epith Cells /LPF Urine Bacteria /LPF Urine Test (NEGATIVE) 07/15/21 07/15/21 Range/Units 14:15 14:15 WBC (4.8-10.8) X10*3/uL RBC (4.20-5.50) X10*6/uL Hgb (12.0-16.0) g/dl Hct (37-47) % MCV (80-98) fL MCH (27.0-33.0) pg MCHC (31.0-35.0) g/dl RDW (11.0-16.0) % Plt Count (160-400) X10*3/uL MPV (9.4-12.3) fL Immature Gran % (Auto) (0.0-0.4) % Neut % (Auto) (45-73) % Lymph % (Auto) (20-40) % Howard % (Auto) (2-11) % Eos % (Auto) (0-4) % Baso % (Auto) (0-2) % Lymph # (Auto) (1.2-4.9) X10*3/uL Howard # (Auto) (0.1-1.2) X10*3/uL Eos # (Auto) (0.0-0.4) X10*3/uL Baso # (Auto) (0.0-0.2) X10*3/uL Abs Immat Gran (auto) (0.00-0.03) X10*3/uL Absolute Neuts (auto) (2.0-8.3) X10*3/uL Absolute Nucleated RBC (0.0-0.012) X10*3/uL Nucleated RBC % (auto) (0.0-0.2) /100WBC Sodium (135-145) mmol/L Potassium (3.3-5.1) mmol/L Chloride (96-108) mmol/L Carbon Dioxide (22-29) mmol/L Anion Gap (12-20) BUN (9-16) mg/dL Creatinine (0.5-1.4) mg/dL Estim Creat Clear Calc Estimated GFR Random Glucose (60-115) mg/dL Calcium (8.4-10.2) mg/dL Magnesium (1.6-2.6) mg/dL Total Bilirubin (0.0-1.0) mg/dL Direct Bilirubin (0.0-0.5) mg/dL AST (5-31) U/L ALT (0-31) U/L Alkaline Phosphatase (39-117) U/L Total Protein (6.5-8.0) g/dL Albumin (3.5-5.0) g/dL Lipase (8-78) U/L Urine Color BROWN Urine Appearance CLOUDY Urine pH 6.5 (5.0-8.0) Ur Specific [place] >= 1.030 H (1.005-1.025) Urine Protein 3+ H (NEG-TRACE) MG/DL Urine Glucose (UA) NEG (NEG) MG/DL Urine Ketones SEE NOTE (NEG) MG/DL Urine Blood 3+ H (NEG) Urine Nitrite SEE NOTE (NEG) Ur Leukocyte Esterase TRACE H (NEG) Urine RBC TNTC H (0) /HPF Urine WBC 1-4 (0-4) /HPF Ur Squamous Epith Cells TRACE /LPF Urine Bacteria NONE /LPF Urine Test NEGATIVE (NEGATIVE) <COLEEN Edmonds - Last Filed: 07/15/21 16:13> Lab Results 07/15/21 07/15/21 07/15/21 Range/Units 14:15 14:15 14:15 WBC 10.9 H (4.8-10.8) X10*3/uL RBC 4.10 L (4.20-5.50) X10*6/uL Hgb 14.6 (12.0-16.0) g/dl Hct 42.4 (37-47) % MCV 103.4 H (80-98) fL MCH 35.6 H (27.0-33.0) pg MCHC 34.4 (31.0-35.0) g/dl RDW 12.7 (11.0-16.0) % Plt Count 280 (160-400) X10*3/uL MPV 9.6 (9.4-12.3) fL Immature Gran % (Auto) 1.6 H (0.0-0.4) % Neut % (Auto) 74.3 H (45-73) % Lymph % (Auto) 16.2 L (20-40) % Howard % (Auto) 6.7 (2-11) % Eos % (Auto) 0.7 (0-4) % Baso % (Auto) 0.5 (0-2) % Lymph # (Auto) 1.8 (1.2-4.9) X10*3/uL Howard # (Auto) 0.7 (0.1-1.2) X10*3/uL Eos # (Auto) 0.1 (0.0-0.4) X10*3/uL Baso # (Auto) 0.1 (0.0-0.2) X10*3/uL Abs Immat Gran (auto) 0.18 H (0.00-0.03) X10*3/uL Absolute Neuts (auto) 8.1 (2.0-8.3) X10*3/uL Absolute Nucleated RBC 0.000 (0.0-0.012) X10*3/uL Nucleated RBC % (auto) 0.0 (0.0-0.2) /100WBC Sodium 137 (135-145) mmol/L Potassium 4.1 (3.3-5.1) mmol/L Chloride 100 (96-108) mmol/L Carbon Dioxide 27 (22-29) mmol/L Anion Gap 14 (12-20) BUN 5 L D (9-16) mg/dL Creatinine 0.68 (0.5-1.4) mg/dL Estim Creat Clear Calc 133.5 Estimated GFR > 60 Random Glucose 109 (60-115) mg/dL Calcium 9.7 D (8.4-10.2) mg/dL Magnesium 1.8 (1.6-2.6) mg/dL Total Bilirubin 0.9 (0.0-1.0) mg/dL Direct Bilirubin 0.5 (0.0-0.5) mg/dL AST 132 H (5-31) U/L ALT 87 H (0-31) U/L Alkaline Phosphatase 137 H D (39-117) U/L Total Protein 7.6 (6.5-8.0) g/dL Albumin 4.4 (3.5-5.0) g/dL Lipase 16 (8-78) U/L Urine Color Urine Appearance Urine pH (5.0-8.0) Ur Specific [place] (1.005-1.025) Urine Protein (NEG-TRACE) MG/DL Urine Glucose (UA) (NEG) MG/DL Urine Ketones (NEG) MG/DL Urine Blood (NEG) Urine Nitrite (NEG) Ur Leukocyte Esterase (NEG) Urine RBC (0) /HPF Urine WBC (0-4) /HPF Ur Squamous Epith Cells /LPF Urine Bacteria /LPF Urine Test (NEGATIVE) 07/15/21 07/15/21 Range/Units 14:15 14:15 WBC (4.8-10.8) X10*3/uL RBC (4.20-5.50) X10*6/uL Hgb (12.0-16.0) g/dl Hct (37-47) % MCV (80-98) fL MCH (27.0-33.0) pg MCHC (31.0-35.0) g/dl RDW (11.0-16.0) % Plt Count (160-400) X10*3/uL MPV (9.4-12.3) fL Immature Gran % (Auto) (0.0-0.4) % Neut % (Auto) (45-73) % Lymph % (Auto) (20-40) % Howard % (Auto) (2-11) % Eos % (Auto) (0-4) % Baso % (Auto) (0-2) % Lymph # (Auto) (1.2-4.9) X10*3/uL Howard # (Auto) (0.1-1.2) X10*3/uL Eos # (Auto) (0.0-0.4) X10*3/uL Baso # (Auto) (0.0-0.2) X10*3/uL Abs Immat Gran (auto) (0.00-0.03) X10*3/uL Absolute Neuts (auto) (2.0-8.3) X10*3/uL Absolute Nucleated RBC (0.0-0.012) X10*3/uL Nucleated RBC % (auto) (0.0-0.2) /100WBC Sodium (135-145) mmol/L Potassium (3.3-5.1) mmol/L Chloride (96-108) mmol/L Carbon Dioxide (22-29) mmol/L Anion Gap (12-20) BUN (9-16) mg/dL Creatinine (0.5-1.4) mg/dL Estim Creat Clear Calc Estimated GFR Random Glucose (60-115) mg/dL Calcium (8.4-10.2) mg/dL Magnesium (1.6-2.6) mg/dL Total Bilirubin (0.0-1.0) mg/dL Direct Bilirubin (0.0-0.5) mg/dL AST (5-31) U/L ALT (0-31) U/L Alkaline Phosphatase (39-117) U/L Total Protein (6.5-8.0) g/dL Albumin (3.5-5.0) g/dL Lipase (8-78) U/L Urine Color BROWN Urine Appearance CLOUDY Urine pH 6.5 (5.0-8.0) Ur Specific [place] >= 1.030 H (1.005-1.025) Urine Protein 3+ H (NEG-TRACE) MG/DL Urine Glucose (UA) NEG (NEG) MG/DL Urine Ketones SEE NOTE (NEG) MG/DL Urine Blood 3+ H (NEG) Urine Nitrite SEE NOTE (NEG) Ur Leukocyte Esterase TRACE H (NEG) Urine RBC TNTC H (0) /HPF Urine WBC 1-4 (0-4) /HPF Ur Squamous Epith Cells TRACE /LPF Urine Bacteria NONE /LPF Urine Test NEGATIVE (NEGATIVE) <Dandy Shaffer MD - Last Filed: 07/16/21 01:43> Imaging Data CT abdomen and pelvis: Attestation: I personally reviewed and interpreted this imaging study as follows: <COLEEN Edmonds - Last Filed: 07/15/21 16:13> Radiologist's impression: FINDINGS: LUNG BASES: The visualized lung bases are unremarkable.? LIVER, GALLBLADDER, AND BILIARY TREE: Enlarged fatty liver. The gallbladder is unremarkable with no evidence of radiopaque gallstones, gallbladder wall thickening, or obvious pericholecystic inflammatory changes.? PANCREAS: Unremarkable.? SPLEEN: Unremarkable.? ADRENAL GLANDS: Unremarkable.? KIDNEYS AND URETERS: There is a 3 mm stone in the right renal pelvis. No hydronephrosis is seen. Evaluation for a small renal stones is limited due to excreted contrast in the collecting systems. BLADDER: Not optimally distended and not well evaluated.? GASTROINTESTINAL TRACT: There is fatty infiltration of the wall of the colon, particularly the left colon and sigmoid colon. This is a nonspecific finding. Small and large bowel is otherwise unremarkable. The appendix is unremarkable. The stomach is unremarkable.? ABDOMINAL WALL: No significant hernia is appreciated.? LYMPH NODES: Normal. VASCULAR: Unremarkable. PELVIC VISCERA: Unremarkable.? OSSEOUS STRUCTURES: Unremarkable.? CT/CT abdomen pelvis w con IMPRESSION: 3 mm stone in the central right kidney/right renal pelvis. No hydronephrosis. Enlarged fatty liver.? <COLEEN Edmonds - Last Filed: 07/15/21 16:13> Discharge Plan Discharge Clinical Impression: Urinary tract infection, Acute flank pain <COLEEN Edmonds - Last Filed: 07/15/21 16:13> Patient Disposition: Home, Self-Care <COLEEN Edmonds - Last Filed: 07/15/21 16:13> Instructions: Urinary Tract Infection in Women (ED), Flank Pain (ED) <COLEEN Edmonds - Last Filed: 07/15/21 16:13> Additional Instructions: Drink plenty of fluids. Follow-up with urology and or your primary care provider as soon as possible You have a urinary tract infection. You will be prescribed antibiotics, it is important you take him to their entirety, do not skip any doses. If you develop new or worsening symptoms call 911 or come back to the ER for further evaluation. <COLEEN Edmonds - Last Filed: 07/15/21 16:13> Prescriptions: New cefuroxime axetil 500 mg tablet 500 mg PO BID 7 Days Qty: 14 RF: 0 ondansetron HCl [Zofran] 4 mg tablet 4 mg PO Q8H PRN (Reason: nausea and vomiting) Qty: 10 RF: 0 No Action ciprofloxacin HCl [Cipro] 500 mg tablet 500 mg PO Q12H 7 Days Qty: 14 RF: 0 ondansetron HCl [Zofran] 4 mg tablet 4 mg PO Q8H PRN (Reason: nausea and vomiting) Qty: 3 RF: 0 oxycodone 5 mg tablet 5 mg PO Q4H PRN (Reason: pain) Qty: 14 RF: 0 <COLEEN Edmonds - Last Filed: 07/15/21 16:13> Referrals: Magali Calabrese MD [Primary Care Provider] - 2 days Jareth Jackson MD [Physician] - 2 days (Cystitis) <COLEEN Edmonds - Last Filed: 07/15/21 16:13> Interventions: ED Discharge Assessment Last Done: 07/15/21 16:38 <COLEEN Edmonds - Last Filed: 07/15/21 16:13> Discharge Date/Time: 07/15/21 16:38 <COLEEN Edmonds - Last Filed: 07/15/21 16:13> PMFSH Past Medical History Medical History: Medical History No known health problems <COLEEN Edmonds - Last Filed: 07/15/21 16:13> Surgical History: Surgical History No history of previous surgery <COLEEN Edmonds - Last Filed: 07/15/21 16:13> Social History Social History: Social History Alcohol intake: current Alcohol intake frequency: holidays/special occasions only Alcohol type: beer Substance Use Type: Marijuana Advance Directives: Yes Advance Directives Information Provided: Yes Advance Directives on File: No Patient : No <COLEEN Edmonds - Last Filed: 07/15/21 16:13>
[2021-07-15 14:22] LABS: MANUAL DIFF FLAG NO
[2021-07-15 14:23] LABS: Appearance Urine CLOUDY; Basophils Absolute Auto 0.1 X10*3/uL (0.0-0.2); Basophils Percent Auto 0.5 % (0-2); Color Urine BROWN; Eosinophils Absolute Auto 0.1 X10*3/uL (0.0-0.4); Eosinophils Percent Auto 0.7 % (0-4); Glucose Urine UA NEG (NEG); Hematocrit 42.4 % (37-47); Hemoglobin 14.6 g/dl (12.0-16.0); Imm Gran Abs Auto 0.18 X10*3/uL (0.00-0.03); Imm Gran Pct Auto 1.6 % (0.0-0.4); Leukocyte Esterase Urine TRACE (NEG); Lymphocytes Absolute Auto 1.8 X10*3/uL (1.2-4.9); Lymphocytes Percent Auto 16.2 % (20-40); Mean Corpuscular HGB Conc 34.4 g/dl (31.0-35.0); Mean Corpuscular Hemoglobin 35.6 pg (27.0-33.0); Mean Corpuscular Volume 103.4 fL (80-98); Mean Platelet Volume 9.6 fL (9.4-12.3); Monocytes Absolute Auto 0.7 X10*3/uL (0.1-1.2); Monocytes Percent Auto 6.7 % (2-11); Neutrophils Absolute Auto 8.1 X10*3/uL (2.0-8.3); Neutrophils Percent Auto 74.3 % (45-73); PH 6.5 (5.0-8.0); Platelet Count 280 X10*3/uL (160-400); Red Cell Distribution Width 12.7 % (11.0-16.0); Specific Gravity - Urine >= 1.030 (1.005-1.025); UACC Culture Trigger YES; Urine Blood 3+ (NEG); Urine Protein 3+ MG/DL (NEG-TRACE); White Blood Count 10.9 X10*3/uL (4.8-10.8)
[2021-07-15 14:26] LABS: UPreg QC Valid YES; Urine Pregnancy NEGATIVE (NEGATIVE)
[2021-07-15 14:36] LABS: RBC Urine TNTC /HPF (0); Squamous Epithelial Cell Urine TRACE /LPF
[2021-07-15 14:41] LABS: Lipase 16 U/L (8-78)
[2021-07-15 14:44] LABS: Alanine Aminotransferase 87 U/L (0-31); Albumin Level 4.4 g/dL (3.5-5.0); Alkaline Phosphatase 137 U/L (39-117); Anion Gap 14 (12-20); Aspartate Amino Transferase 132 U/L (5-31); Bilirubin Direct 0.5 mg/dL (0.0-0.5); Bilirubin Total 0.9 mg/dL (0.0-1.0); Blood Urea Nitrogen 5 mg/dL (9-16); Calcium 9.7 mg/dL (8.4-10.2); Carbon Dioxide 27 mmol/L (22-29); Chloride 100 mmol/L (96-108); Creatinine Clr Calc Pharmacy 133.5; Estimated Glomerular Filt Rate > 60; Glucose Random 109 mg/dL (60-115); Magnesium 1.8 mg/dL (1.6-2.6); Potassium 4.1 mmol/L (3.3-5.1); Sodium 137 mmol/L (135-145); Total Protein 7.6 g/dL (6.5-8.0)
[2021-07-15] MEDS: 0.9 % Sodium Chloride 1,000 ML 999 ML IVCONT (14:54)
[2021-07-15] MEDS: iohexoL 350 MG/ML 100 ML INFUS..BTL 85 ML IV (15:13)
[2021-07-15 15:31] VITALS: BP 138/92; PULSE 82; RESP 18
== END 2021-07-15 16:38 | disposition home or self-care (01) ==
PROVIDERS: Physician Assistant; Emergency Provider Emergency Medicine; PCP Internal Medicine
DX: N39.0 Urinary tract infection, site not specified (principal); R10.11 Right upper quadrant pain; F12.90 Cannabis use, unspecified, uncomplicated; Z79.899 Other long term (current) drug therapy
CPT/HCPCS: 36415; 74177; 80048; 80076; 81001; 81025; 83690; 83735; 85025; 87086; 96360; 99284; Q9967

== ENCOUNTER 2022-08-16 15:45 | Emergency (ER) | payer OTHER, SELFPAY ==
--- NOTE | ~2022-08-16 | US_ITS ---
EXAMINATION: US VENOUS ULTRASOUND WITH DOPPLER LOWER EXTREMITY, BILATERAL CLINICAL INFORMATION: Leg pain. COMPARISON: None TECHNIQUE: Ultrasound of the deep veins is performed from the hip to the calf with compression sonography and color and pulse Doppler assessment. Spectral analysis with color-flow imaging is performed. FINDINGS: RIGHT: There is normal venous compression and respiratory variation and augmented flow. The visualized common femoral vein, superficial femoral vein, profunda femoral vein, popliteal vein, and the trifurcation region shows no evidence of deep venous thrombosis. No right popliteal cyst. The subcutaneous soft tissues are unremarkable. LEFT: There is normal venous compression and respiratory variation and augmented flow. The visualized common femoral vein, superficial femoral vein, profunda femoral vein, popliteal vein, and the trifurcation region shows no evidence of deep venous thrombosis. No left popliteal cyst. The subcutaneous soft tissues are unremarkable. US/US venous duplex LE BI IMPRESSION: No evidence of deep venous thrombosis in the visualized veins of the bilateral lower extremities.
[2022-08-16 16:18] VITALS: BP 137/96; PULSE 122; RESP 18; TEMP 36.6; O2SAT 97; BMI 32.3
--- NOTE | 2022-08-16 21:26 | ED_ITS ---
HPI - General Adult General Chief complaint: Extremity Problem Stated complaint: R/O DVT, numbness on both legs Time Seen by Provider: 08/16/22 21:02 Source: patient Limitations: no limitations History of Present Illness HPI narrative: This is a 32-year-old female with history of DVT, who had had a recent trip to [place], and subsequently developed the pain in both of her knees radiating down her anterior legs, which felt like monique splints or growing pains. Patient denies any swelling to her legs or feet. She was sent in for her PCP to rule out DVT. The patient also notes that she has decreased sensation from her lower sternum down to her legs as well as in a stocking glove pattern in her forearms and wrists. She notes when they did the ultrasound that she could feel the probe but felt like it was not a normal sensation. She denies any trouble urinating such as trouble getting her urine out, or incontinence. Denies any chest pain or shortness of breath per denies any acute back pain or neck pain. She does feel somewhat weak in her legs when she goes upstairs but otherwise notes no weakness. Related Data Previous Rx's Medication Instructions Recorded ciprofloxacin HCl 500 mg tablet 500 mg PO Q12H 7 days #14 tabs 02/08/21 (Cipro) ondansetron HCl 4 mg tablet 4 mg PO Q8H PRN nausea and 02/08/21 (Zofran) vomiting #3 tabs oxycodone 5 mg tablet 5 mg PO Q4H PRN pain #14 tabs 02/10/21 cefuroxime axetil 500 mg tablet 500 mg PO BID 7 days #14 tabs 07/15/21 ondansetron HCl 4 mg tablet 4 mg PO Q8H PRN nausea and 07/15/21 (Zofran) vomiting #10 tabs Allergies Allergy/AdvReac Type Severity Reaction Status Date / Time peanut [PEANUT] Allergy Intermediate ITCHINESS Verified 08/16/22 16:22 Review of Systems Review of Systems: Yes all other systems are reviewed and are negative Constitutional: Constitutional: Reports as per HPI and Denies fever(s) Eyes: Eyes: Reports as per HPI, Reports no additional eye complaints and Denies loss of vision ENT: Reports system reviewed and no additional complaints, except as documented, Reports as per HPI, Denies nasal congestion, Denies nasal discharge and Denies sore throat Cardiovascular: Cardiovascular: Reports as per HPI, Denies chest pain and Denies dyspnea Respiratory: Respiratory: Reports as per HPI, Denies cough and Denies dyspnea Gastrointestinal: Gastrointestinal: Reports as per HPI, Denies abdominal pain, Denies diarrhea and Denies vomiting Genitourinary: Genitourinary: Reports as per HPI, Denies hematuria, Denies uri nary frequency and Denies dysuria Musculoskeletal: Musculoskeletal: Reports no additional musculoskeletal complaints, Reports abnormal gait and Reports numbness Comments: Extremity pain Integumentary/Breasts: Skin/Breast: Reports system reviewed and no additional complaints, except as docu, Reports as per HPI and Denies rash Neurologic: Reports as per HPI, Reports abnormal gait, Reports focal weakness, Denies loss of vision and Reports numbness Psychiatric: Psychiatric: Reports no additional psychiatric complaints and Reports as per HPI Endocrine: Endocrine: Reports no additional endocrine complaints and Reports as per HPI Hematologic/Lymphatic: Hematologic/Lymphatic: Reports no additional hematologic/lymphatic complaints, Reports as per HPI and Reports other (No peripheral edema) [facility] Past Medical History Medical History No known health problems Surgical History No history of previous surgery Social History Social History Alcohol intake: current Alcohol intake frequency: holidays/special occasions only Alcohol type: beer Substance Use Type: Marijuana Physical Exam ED Vital Signs: Vital Signs - 24 hr 08/16/22 16:18 Temperature 97.9 F Pulse Rate 122 H Respiratory Rate 18 Blood Pressure 137/96 H Pulse Oximetry 97 Oxygen Delivery Method Room Air BMI result Body Mass Index 32.3 Medical Decision Making MDM Narrative Medical decision making narrative: Patient sent in for rule out DVT, even though she has no focal pain or swelling but more diffuse symptoms. Ultrasound was negative. Patient reports sense of numbness from her lower sternum down to her feet, also in a stocking-glove pattern in her lower arms. Patient has no tenderness on exam, has a normal neuro exam with no focal motor deficit. Overall pattern does not seem consistent with a spinal level. Nonetheless the patient may warrant neurology evaluation, outpatient MRI for symptoms persist. Discharge Plan Discharge Clinical Impression: Paresthesia of both lower extremities Patient Disposition: Home, Self-Care Instructions: Paresthesia (ED) Additional Instructions: Follow-up with her primary care physician. You may need an outpatient MRI of your cervical, thoracic, and lumbar spine to further evaluate your feeling of partial numbness. Return for any new or worsened symptoms such as increased numbness or weakness, trouble urinating, incontinence. You also may benefit from Neurology evaluation if your symptoms persist Prescriptions: No Action ciprofloxacin HCl [Cipro] 500 mg tablet 500 mg PO Q12H 7 Days Qty: 14 0RF ondansetron HCl [Zofran] 4 mg tablet 4 mg PO Q8H PRN (Reason: nausea and vomiting) Qty: 3 0RF oxycodone 5 mg tablet 5 mg PO Q4H PRN (Reason: pain) Qty: 14 0RF Rx Instructions: Patient may request partial fill cefuroxime axetil 500 mg tablet 500 mg PO BID 7 Days Qty: 14 0RF ondansetron HCl [Zofran] 4 mg tablet 4 mg PO Q8H PRN (Reason: nausea and vomiting) Qty: 10 0RF
== END 2022-08-16 23:00 | disposition home or self-care (01) ==
PROVIDERS: Emergency Provider Emergency Medicine; PCP Internal Medicine
DX: M79.661 Pain in right lower leg (principal); M79.605 Pain in left leg; M79.604 Pain in right leg; R60.0 Localized edema; R20.2 Paresthesia of skin; Z79.899 Other long term (current) drug therapy
CPT/HCPCS: 93970; 99282; 99284

== ENCOUNTER 2022-11-16 21:41 | Inpatient (IN) | payer OTHER, SELFPAY ==
--- NOTE | 2022-11-16 | ECG_ITS ---
Test Reason : NAUSEA Blood Pressure : / mmHG Vent. Rate : 096 BPM Atrial Rate : 096 BPM P-R Int : 110 ms QRS Dur : 088 ms QT Int : 370 ms P-R-T Axes : 012 040 036 degrees QTc Int : 467 ms Sinus rhythm with short AK Nonspecific ST abnormality Abnormal ECG No previous ECGs available Referred By: Generic ED Physician Electronically Signed By:MEERA LIU MD
--- NOTE | ~2022-11-16 | CT_ITS ---
EXAMINATION: CT CHEST, ABDOMEN AND PELVIS WITHOUT IV CONTRAST CLINICAL INFORMATION: possible esophageal injury, abd pain COMPARISON: 07/15/2021. TECHNIQUE: Multidetector volumetric imaging was performed from the thoracic inlet through the pubic symphysis following the uneventful administration of: Oral contrast: No Intravenous contrast: None. Sagittal and coronal reformatted images were obtained on the technologist workstation. This CT examination was performed using dose optimization techniques as appropriate, variously including the following: *Automated exposure control *Adjustment of mA and/or kV according to patient size (this includes techniques or standardized protocols for targeted exams where dose is matched to indication/reason for exam; i.e. extremities or head) *Use of iterative reconstruction technique FINDINGS: CHEST: LUN mm nodule in the periphery of the right lower lobe, present in 2020 and unchanged consistent with a benign etiology. No imaging follow-up recommended per Fleischner guidelines. MEDIASTINUM: The mediastinum in normal. The central vascular structures are unremarkable. No hilar or mediastinal lymphadenopathy. Coronary Artery Calcification: None visualized on this study. PLEURA: No significant effusion. No pleural mass or thickening. CHEST WALL/AXILLA: Unremarkable. ABDOMEN/PELVIS: The lack of intravenous contrast limits evaluation of the solid visceral organs including the liver, spleen, pancreas, and kidneys. LIVER, GALLBLADDER, AND BILIARY TREE: Liver is diffusely hypoattenuating consistent with diffuse hepatic steatosis The gallbladder is unremarkable with no evidence of radiopaque gallstones, gallbladder wall thickening, or obvious pericholecystic inflammatory changes. PANCREAS: Limited non-contrast evaluation is normal. No debra-pancreatic fluid. SPLEEN: Limited non-contrast evaluation is normal. ADRENAL GLANDS: Normal; no adrenal mass. KIDNEYS AND URETERS: 8mm calculus at the right ureteropelvic junction with some adjacent perinephric fat stranding. There is a 4 mm left lower pole renal calculus. GASTROINTESTINAL TRACT: Small bowel and colon are non-dilated. No bowel wall thickening. No pericolonic inflammatory changes to suggest colitis or diverticulitis. Normal appendix. ABDOMINAL WALL: Tiny fat-containing umbilical hernia. LYMPH NODES: No pathologically enlarged lymph nodes in the abdomen or pelvis. VASCULAR: Normal caliber abdominal aorta. BLADDER: Unremarkable. PELVIC VISCERA: Unremarkable. OSSEOUS STRUCTURES: Posterior disc bulge at L5-S1. No acute or suspicious osseous abnormality. CT/CT abdomen pelvis wo IV con IMPRESSION: Limited noncontrast study but no ancillary findings to suggest an esophageal injury, similar changes pneumomediastinum or pleural effusions. 8 mm calculus at the right ureteropelvic junction with adjacent fat stranding. No hydronephrosis. This could be symptomatic. Severe diffuse hepatic steatosis.
[2022-11-16 21:44] VITALS: BP 174/112; PULSE 109; RESP 20; TEMP 36.2; O2SAT 98; BMI 28.8
--- NOTE | 2022-11-16 22:01 | ED_ITS ---
HPI - General Adult General Chief complaint: Nausea/Vomiting/Diarrhea Stated complaint: Vomiting Time Seen by Provider: 11/16/22 22:00 Source: patient Mode of arrival: ambulatory Limitations: no limitations History of Present Illness HPI narrative: Patient is a 32 year old assigned female at with a history of alcohol use (completely sober for 6 months) presenting to the emergency department today with vomiting and abdominal pain. Patient states that over the last 3 days she has non-stop been throwing up and has thrown up a lot of blood that she describes as bright red. Patient states that she has been unable to tolerate anything by mouth. Patient states that she was previously febrile but it recently broke. Patient denies any dizziness, lightheadedness, fever, chills, blurry vision, double vision, loss of vision, chest pain, difficulty breathing, shortness of breath, back pain, night sweats, pain with urination, increased urinary frequency, increased urinary urgency, blood in her urine or stool, s yncope or a near syncopal episode, recent trauma or falls, bowel incontinence, bladder incontinence, bowel retention, bladder retention, or any other complaints at this time. Onset (ago): day(s) (3) Location: abdomen Severity: moderate Severity scale (1-10): 5 Pain Consistency: constant Relieving factors: none Exacerbating factors: none Associated symptoms: nausea/vomiting Treatments prior to arrival: none Related Data Previous Rx's Medication Instructions Recorded ciprofloxacin HCl 500 mg tablet 500 mg PO Q12H 7 days #14 tabs 02/08/21 (Cipro) ondansetron HCl 4 mg tablet 4 mg PO Q8H PRN nausea and 02/08/21 (Zofran) vomiting #3 tabs oxycodone 5 mg tablet 5 mg PO Q4H PRN pain #14 tabs 02/10/21 cefuroxime axetil 500 mg tablet 500 mg PO BID 7 days #14 tabs 07/15/21 ondansetron HCl 4 mg tablet 4 mg PO Q8H PRN nausea and 07/15/21 (Zofran) vomiting #10 tabs Allergies Allergy/AdvReac Type Severity Reaction Status Date / Time peanut [PEANUT] Allergy Intermediate ITCHINESS Verified 08/16/22 16:22 Review of Systems Constitutional: Constitutional: Reports no additional constitutional complaints, Denies chills, Denies fever(s) and Denies night sweats Eyes: Eyes: Reports no additional eye complaints, Denies blurry vision, Denies change in vision, Denies diplopia, Denies eye discharge, Denies loss of vision and Denies eye pain ENT: Denies dizziness Cardiovascular: Cardiovascular: Reports no additional cardiovascular compla ints, Denies chest pain, Denies lightheadedness, Denies Loss of Consciousness and Denies dyspnea Respiratory: Respiratory: Reports no additional respiratory complaints and Denies dyspnea Gastrointestinal: Gastrointestinal: Reports no additional gastrointestinal complaints, Reports abdominal pain, Denies melena, Denies hematochezia, Denies change in bowel habits, Denies change in stool character, Reports nausea, Reports vomiting and Reports hematemesis Genitourinary: Genitourinary: Denies hematuria, Denies urinary frequency, Denies dysuria, Denies urinary incontinence, Denies urinary hesitancy and Denies urinary urgency Musculoskeletal: Musculoskeletal: Reports no additional musculoskeletal complaints, Denies numbness and Denies tingling Neurologic: Denies dizziness, Denies loss of vision, Denies numbness and Denies tingling Psychiatric: Psychiatric: Reports no additional psychiatric complaints Endocrine: Endocrine: Reports no additional endocrine complaints Hematologic/Lymphatic: Hematologic/Lymphatic: Reports no additional hematologic/lymphatic complaints Allergic/Immunologic: Allergic/Immunologic: Reports no additional allergic/immunologic complaints [facility] Past Medical History Attestation statement: The following information was validated with the patient. Source: old records reviewed and nursing notes reviewed Medical History No known health problems Surgical History No history of previous surgery Social History Social History Alcohol intake: current Alcohol intake frequency: holidays/special occasions only Alcohol type: beer Substance Use Type: Marijuana Advance Directives: No Advance Directives Information Provided: No Physical Exam ED Vital Signs: Vital Signs - 24 hr 11/16/22 21:44 11/16/22 22:58 11/16/22 23:55 Temperature 97.2 F 98.0 F 98.4 F Pulse Rate 109 H 107 H 91 Respiratory Rate 20 28 H 16 Blood Pressure 174/112 H 159/101 H 161/106 H Pulse Oximetry 98 100 100 Oxygen Delivery Method Room Air Room Air Room Air BMI result Body Mass Index 28.8 Const General: cooperative, no acute distress, alert and awake Nutritional Appearance: well nourished Orientation/consciousness: patient oriented x3 Limitations: no limitations HENMT Head: Yes normal to inspection and Yes atraumatic Ears: hearing grossly normal bilaterally and external ears normal General nose exam: Normal external nose present, no nasal discharge noted and no epistaxis Face and sinus: Yes normal facial exam, No abrasion and No laceration Mouth: Normal oral and palatal mucosa present, no drooling and no muffled voice Eyes General: appearance normal, both eyes and all related structures Periorbital: periorbital findings normal Eyelids: Yes eyelids normal Conjunctivae: conjunctivae normal Pupils: Equal, round and reactive pupils present EOM: EOMs intact bilaterally Neck Neck: Yes normal visual inspection, Yes full ROM and Yes no lymphadenopathy Chest Chest palpation & inspection: normal inspection of the chest Resp Effort & Inspection: normal respiratory effort and able to speak in complete sentences Auscultation: clear to auscultation bilaterally Cardio Rate: regular rate Rhythm: regular rhythm GI Inspection: Yes normal to inspection Palpation (GI): Soft to palpation, not firm, Tenderness to palpation present (GI) in the LUQ and in the RUQ, no guarding and not rigid Neuro General: patient oriented x3 and moves all extremities Cranial nerves: Yes Equal, round and reactive pupils present Cognition (Neuro): normal cognition Motor exam (neuro): 5/5 motor strength present throughout Sensory Exam: Normal double simultaneous stimulation for sensation Coordination: [id number] test normal Extrem General: Yes normal to inspection, Yes full ROM and Yes capillary refill normal Psych Appearance: grossly normal Mental Status: mental status grossly normal Affect: normal affect Attitude: cooperative Thought process: Normal thought process present Thought content: Normal thought content present Insight: Good insight present (Psych) Medications Administered Generic Name Dose Route Start Last Admin Trade Name Freq PRN Reason Stop Dose Admin Potassium Chloride/Sodium Chloride 40 meq in 1,000 mls @ 250 mls/hr 11/17/22 00:15 11/17/22 00:15 Kcl 40 Meq In 0.9 % Sodium Chl IV 11/17/22 04:14 250 mls/hr .Q4H ISAAK Administration Discontinued Medications Generic Name Dose Route Start Last Admin Trade Name Freq PRN Reason Stop Dose Admin Sodium Chloride 1,000 mls @ 999 mls/hr 11/16/22 22:15 11/17/22 00:09 Ns IV 11/16/22 23:15 Infused .Q1H1M ISAAK Infusion Morphine Sulfate 4 mg 11/16/22 23:03 11/16/22 23:12 Morphine Sulfate 4 Mg/Ml Cartridge IVPUSH 11/16/22 23:04 4 mg ONCE ONE Administration Protocol Ondansetron HCl 4 mg 11/16/22 22:11 11/16/22 23:03 Ondansetron Hcl 4 Mg/2 Ml Vial IVPUSH 11/16/22 22:12 4 mg ONCE ONE Administration Pantoprazole Sodium 40 mg 11/16/22 22:11 11/16/22 23:03 Pantoprazole Sodium 40 Mg/10 Ml Vial IVPUSH 11/16/22 22:12 40 mg ONCE ONE Administration Potassium Chloride 40 meq 11/17/22 00:01 11/17/22 00:09 Potassium Chloride Packet 20 Meq Packet PO 11/17/22 00:02 40 meq ONCE ONE Administration Medical Decision Making Medical Decision Making MDM Narrative: Patient is a 32 year old assigned female at with a history of alcohol use (6 months completely sober) presenting to the emergency department today with abdominal pain, nausea, and vomiting. Patient's physical exam showed an obviously uncomfortable individual with abdominal tenderness to palpation. Patient's blood work showed an elevated WBC count of 11.5, a decreased potassium of 2.9, and a decreased magnesium of 1.5. Patient's CT chest and abdomen showed an 8mm kidney stone on the right at the UVJ with no hydronephrosis but was otherwise unremarkable. I called and spoke to the hospitalist team who agreed to admission. I explained my physical exam findings as well as all test results to the patient and the patient's mother. I answered all questions asked by the patient and the patient's mother. Patient received IV fluids, IV mag, IV potassium and PO potassium. Patient not considered septic (@ 0030). Patient and the patient's mother verbalized agreement and understanding with this treatment plan and admission. Differential Diagnosis Differential Diagnoses: The differential diagnosis associated with the presentation includes nausea, vomiting, hypomagnesemia, hypokalemia Consult Healthcare Provider Management of the patient was discussed with: Hospitalist (agreed to admission) Lab Data [facility] Lab Attestation statement: I reviewed the patient's lab results. 11/16/22 22:51 11/16/22 22:51 Labs: Lab Results 11/16/22 11/16/22 11/16/22 Range/Units 22:51 22:51 22:51 WBC 11.5 H (4.8-10.8) X10*3/uL RBC 4.79 (4.20-5.50) X10*6/uL Hgb 15.2 (12.0-16.0) g/dl Hct 43.6 (37.0-47.0) % MCV 91.0 (80.0-98.0) fL MCH 31.7 (27.0-33.0) pg MCHC 34.9 (31.0-35.0) g/dl RDW 13.9 (11.0-16.0) % Plt Count 330 (160-400) X10*3/uL MPV 9.3 L (9.4-12.3) fL Immature Gran % (Auto) 0.3 (0.0-0.4) % Neut % (Auto) 80.3 H (45-73) % Lymph % (Auto) 13.2 L (20-40) % [place] % (Auto) 5.8 (2-11) % Eos % (Auto) 0.1 (0-4) % Baso % (Auto) 0.3 (0-2) % Lymph # (Auto) 1.5 (1.2-4.9) X10*3/uL [place] # (Auto) 0.7 (0.1-1.2) X10*3/uL Eos # (Auto) 0.0 (0.0-0.4) X10*3/uL Baso # (Auto) 0.0 (0.0-0.2) X10*3/uL Abs Immat Gran (auto) 0.03 (0.00-0.03) X10*3/uL Absolute Neuts (auto) 9.2 H (2.0-8.3) x10*3/uL Absolute Nucleated RBC 0.000 (0.0-0.012) X10*3/uL Nucleated RBC % (auto) 0.0 (0.0-0.2) /100WBC Sodium 138 (135-145) mmol/L Potassium 2.9 L D (3.3-5.1) mmol/L Chloride 97 (96-108) mmol/L Carbon Dioxide 27 (22-29) mmol/L Anion Gap 17 (12-20) BUN 10 (9-16) mg/dL Creatinine 0.72 (0.5-1.4) mg/dL Estim Creat Clear Calc 126.5 Estimated GFR > 60 Random Glucose 110 (60-115) mg/dL Calcium 10.3 H D (8.4-10.2) mg/dL Magnesium 1.5 L (1.6-2.6) mg/dL Total Bilirubin 1.5 H (0.0-1.0) mg/dL Direct Bilirubin 0.5 (0.0-0.5) mg/dL AST 39 H (5-31) U/L ALT 36 H (0-31) U/L Alkaline Phosphatase 112 (39-117) U/L Total Protein 7.9 (6.5-8.0) g/dL Albumin 4.7 (3.5-5.0) g/dL Lipase 8 (8-78) U/L Beta HCG, Quant < 2 mIU/mL COVID-19 ([facility]) (Negative) COVID-19 Clin Com Influenza Type A ([facility]) Negative (Negative) Influenza Type B ([facility]) Negative (Negative) Influenza A & B Note See Note 11/16/22 11/16/22 Range/Units 22:51 22:51 WBC (4.8-10.8) X10*3/uL RBC (4.20-5.50) X10*6/uL Hgb (12.0-16.0) g/dl Hct (37.0-47.0) % MCV (80.0-98.0) fL MCH (27.0-33.0) pg MCHC (31.0-35.0) g/dl RDW (11.0-16.0) % Plt Count (160-400) X10*3/uL MPV (9.4-12.3) fL Immature Gran % (Auto) (0.0-0.4) % Neut % (Auto) (45-73) % Lymph % (Auto) (20-40) % [place] % (Auto) (2-11) % Eos % (Auto) (0-4) % Baso % (Auto) (0-2) % Lymph # (Auto) (1.2-4.9) X10*3/uL [place] # (Auto) (0.1-1.2) X10*3/uL Eos # (Auto) (0.0-0.4) X10*3/uL Baso # (Auto) (0.0-0.2) X10*3/uL Abs Immat Gran (auto) (0.00-0.03) X10*3/uL Absolute Neuts (auto) (2.0-8.3) x10*3/uL Absolute Nucleated RBC (0.0-0.012) X10*3/uL Nucleated RBC % (auto) (0.0-0.2) /100WBC Sodium (135-145) mmol/L Potassium (3.3-5.1) mmol/L Chloride (96-108) mmol/L Carbon Dioxide (22-29) mmol/L Anion Gap (12-20) BUN (9-16) mg/dL Creatinine (0.5-1.4) mg/dL Estim Creat Clear Calc Estimated GFR Random Glucose (60-115) mg/dL Calcium (8.4-10.2) mg/dL Magnesium (1.6-2.6) mg/dL Total Bilirubin (0.0-1.0) mg/dL Direct Bilirubin (0.0-0.5) mg/dL AST (5-31) U/L ALT (0-31) U/L Alkaline Phosphatase (39-117) U/L Total Protein (6.5-8.0) g/dL Albumin (3.5-5.0) g/dL Lipase (8-78) U/L Beta HCG, Quant Cancelled mIU/mL COVID-19 ([facility]) Negative (Negative) COVID-19 Clin Com See Note Influenza Type A ([facility]) (Negative) Influenza Type B ([facility]) (Negative) Influenza A & B Note Radiology Impression Discussion of test interpretation with radiology: I have reviewed the radiologist's reading. Radiologist Impression: My interpretation is in agreement with the radiologist's impression of these imaging studies. EXAMINATION: CT CHEST, ABDOMEN AND PELVIS WITHOUT IV CONTRAST CLINICAL INFORMATION: possible esophageal injury, abd pain COMPARISON: 07/15/2021. TECHNIQUE: Multidetector volumetric imaging was performed from the thoracic inlet through the pubic symphysis following the uneventful administration of: Oral contrast: No Intravenous contrast: None. Sagittal and coronal reformatted images were obtained on the technologist workstation. This CT examination was performed using dose optimization techniques as appropriate, variously including the following: *Automated exposure control *Adjustment of mA and/or kV according to patient size (this includes techniques or standardized protocols for targeted exams where dose is matched to indication/reason for exam; i.e. extremities or head) *Use of iterative reconstruction technique FINDINGS: CHEST: LUN mm nodule in the periphery of the right lower lobe, present in 2020 and unchanged consistent with a benign etiology. No imaging follow-up recommended per Fleischner guidelines. MEDIASTINUM: The mediastinum in normal.? The central vascular structures are unremarkable.? No hilar or mediastinal lymphadenopathy. Coronary Artery Calcification: None visualized on this study. PLEURA: No significant effusion. No pleural mass or thickening. CHEST WALL/AXILLA: Unremarkable. ABDOMEN/PELVIS: The lack of intravenous contrast limits evaluation of the solid visceral organs including the liver, spleen, pancreas, and kidneys. LIVER, GALLBLADDER, AND BILIARY TREE: Liver is diffusely hypoattenuating consistent with diffuse hepatic steatosis The gallbladder is unremarkable with no evidence of radiopaque gallstones, gallbladder wall thickening, or obvious pericholecystic inflammatory changes.? PANCREAS: Limited non-contrast evaluation is normal.? No debra-pancreatic fluid.? SPLEEN: Limited non-contrast evaluation is normal. ? ADRENAL GLANDS: Normal; no adrenal mass.? KIDNEYS AND URETERS: 8mm calculus at the right ureteropelvic junction with some adjacent perinephric fat stranding. There is a 4 mm left lower pole renal calculus.? GASTROINTESTINAL TRACT: Small bowel and colon are non-dilated.? No bowel wall thickening.? No pericolonic inflammatory changes to suggest colitis or diverticulitis. Normal appendix. ABDOMINAL WALL: Tiny fat-containing umbilical hernia.? LYMPH NODES: No pathologically enlarged lymph nodes in the abdomen or pelvis. VASCULAR: Normal caliber abdominal aorta. BLADDER: Unremarkable.? PELVIC VISCERA: Unremarkable.? OSSEOUS STRUCTURES: Posterior disc bulge at L5-S1. No acute or suspicious osseous abnormality.? CT/CT chest wo IV con IMPRESSION: Limited noncontrast study but no ancillary findings to suggest an esophageal injury, similar changes pneumomediastinum or pleural effusions. ? 8 mm calculus at the right ureteropelvic junction with adjacent fat stranding. No hydronephrosis. This could be symptomatic. ? Severe diffuse hepatic steatosis. Dictated By: Farooq Renae MD Signed By: Electronically signed by Farooq Renae MD 11/16/22 9940 Independent Historian Clinical information obtained from an independent historian. History obtained from or confirmed by: Parent (patient's mother) Critical Care Time Critical Care Time Critical Care Time: Yes Total Critical Care Time: 30 Attestation: I spent 30 minutes of Critical Care Time with this patient. This does not include time spent on separately reported billable procedures. Discharge Plan Discharge Clinical Impression: Hypomagnesemia, Hypokalemia, Nausea & vomiting Patient Disposition: Admitted As Inpatient Prescriptions: No Action ciprofloxacin HCl [Cipro] 500 mg tablet 500 mg PO Q12H 7 Days Qty: 14 0RF ondansetron HCl [Zofran] 4 mg tablet 4 mg PO Q8H PRN (Reason: nausea and vomiting) Qty: 3 0RF oxycodone 5 mg tablet 5 mg PO Q4H PRN (Reason: pain) Qty: 14 0RF Rx Instructions: Patient may request partial fill cefuroxime axetil 500 mg tablet 500 mg PO BID 7 Days Qty: 14 0RF ondansetron HCl [Zofran] 4 mg tablet 4 mg PO Q8H PRN (Reason: nausea and vomiting) Qty: 10 0RF
[2022-11-16 22:58] VITALS: BP 159/101; PULSE 107; RESP 28; TEMP 36.7; O2SAT 100
--- NOTE | 2022-11-16 23:00 | MHC.EDTECH ---
THIS PCT ASSUMED CARE OF PATIENT AT 2300
[2022-11-16 23:02] LABS: Basophils Percent Auto 0.3 % (0-2); Eosinophils Percent Auto 0.1 % (0-4); Hematocrit 43.6 % (37.0-47.0); Hemoglobin 15.2 g/dl (12.0-16.0); Imm Gran Abs Auto 0.03 X10*3/uL (0.00-0.03); Imm Gran Pct Auto 0.3 % (0.0-0.4); Lymphocytes Absolute Auto 1.5 X10*3/uL (1.2-4.9); Lymphocytes Percent Auto 13.2 % (20-40); Mean Corpuscular HGB Conc 34.9 g/dl (31.0-35.0); Mean Corpuscular Hemoglobin 31.7 pg (27.0-33.0); Mean Platelet Volume 9.3 fL (9.4-12.3); Monocytes Absolute Auto 0.7 X10*3/uL (0.1-1.2); Monocytes Percent Auto 5.8 % (2-11); Neutrophils Absolute Auto 9.2 x10*3/uL (2.0-8.3); Neutrophils Percent Auto 80.3 % (45-73); Platelet Count 330 X10*3/uL (160-400); Red Blood Count 4.79 X10*6/uL (4.20-5.50); Red Cell Distribution Width 13.9 % (11.0-16.0); White Blood Count 11.5 X10*3/uL (4.8-10.8)
[2022-11-16 23:03] LABS: MANUAL DIFF FLAG NO
[2022-11-16] MEDS: ondansetron HCL 4 MG/2 ML VIAL IVPUSH (23:03)
[2022-11-16] MEDS: Pantoprazole Sodium 40 MG/10 ML VIAL IVPUSH (23:03)
[2022-11-16] MEDS: 0.9 % Sodium Chloride 1,000 ML 999 ML IV (23:07)
[2022-11-16] MEDS: Morphine Sulfate 4 MG/ML CARTRIDGE IVPUSH (23:12)
[2022-11-16 23:19] LABS: COVID-19 Test Negative (Negative); IDNOW Serial# 16C4AD1C; IDNOW Serial# BCCEAD1C; Influenza A Negative (Negative); Influenza B2 Negative (Negative)
[2022-11-16 23:30] LABS: Alanine Aminotransferase 36 U/L (0-31); Albumin Level 4.7 g/dL (3.5-5.0); Alkaline Phosphatase 112 U/L (39-117); Anion Gap 17 (12-20); Aspartate Amino Transferase 39 U/L (5-31); Bilirubin Direct 0.5 mg/dL (0.0-0.5); Bilirubin Total 1.5 mg/dL (0.0-1.0); Blood Urea Nitrogen 10 mg/dL (9-16); Calcium 10.3 mg/dL (8.4-10.2); Carbon Dioxide 27 mmol/L (22-29); Chloride 97 mmol/L (96-108); Creatinine Clr Calc Pharmacy 126.5; Estimated Glomerular Filt Rate > 60; Glucose Random 110 mg/dL (60-115); HCG Quantitative < 2 mIU/mL; Lipase 8 U/L (8-78); Potassium 2.9 mmol/L (3.3-5.1); Sodium 138 mmol/L (135-145); Total Protein 7.9 g/dL (6.5-8.0)
--- NOTE | 2022-11-16 23:33 | PC.NURSE ---
pt resting on stretcher, hyperventilating, appearing uncomfortable. COLEEN [place] aware. all medication administered per MAR
[2022-11-16 23:55] VITALS: BP 161/106; PULSE 91; RESP 16; TEMP 36.9; O2SAT 100
--- NOTE | 2022-11-16 23:56 | MHC.EDTECH ---
0000 ROUNDING DONE ,VITALS SIGN TAKEN ,PATIENT ASK FOR ANOTHER ICE PACK ,PATIENT MOTHER AT BED SIDE ,CALL [facility]RES WITHIN REACH .
[2022-11-17] VITALS (8 sets, daily range): BP systolic 98–154; BP diastolic 54–101; PULSE 80–91; RESP 15–20; TEMP 36.6–37.2; O2SAT 97–100; BMI 29.7
[2022-11-17] MEDS: Potassium Chloride Packet 20 MEQ PACKET 40 MEQ PO (00:09)
[2022-11-17] MEDS: KCl 40 mEq in 0.9 % Sodium Chl 40 MEQ/1,000 ML IV.SOLN 250 MEQ IV (00:15)
[2022-11-17 00:22] LABS: Magnesium 1.5 mg/dL (1.6-2.6)
[2022-11-17] MEDS: Magnesium Sulfate/H2O 2 GM/50 ML PIGGYBACK IV (00:45)
[2022-11-17] MEDS: Metoclopramide HCl 10 MG/2 ML VIAL IVPUSH (01:05)
--- NOTE | 2022-11-17 01:45 | PC.NURSE ---
hospitalist in talking with patient at this time
--- NOTE | 2022-11-17 01:49 | PM.IMHP ---
History of Present Illness Date of Service: 11/17/22 Chief Complaint: Hematemesis This is a 32-year-old female with pertinent history of essential hypertension, peripheral neuropathy, mood disorder, history of alcohol use disorder (last consumed alcohol 6 months ago) who presents to the emergency department for evaluation of hematemesis. Patient states that about 3 days ago which she ate baked chicken and broccoli for dinner. Soon after, she began throwing up. Subsequently over the next 2-3 days patient was not able to keep anything down and had multiple episodes of nonbloody emesis. It progressed to patient having streaks of blood in her vomit. On the day of presentation, patient states that she threw up a lot of blood which was bright red. She also has associated burning epigastric discomfort which is nonradiating, constant and without any relieving factors. Patient denies any fever, chills, dizziness, lightheadedness, chest discomfort, palpitations, shortness of breath, changes in urinary habits. No flank pain, dysuria, hesitancy or urgency. Did have 1 episode of diarrhea in the last 3 days. In the emergency department, patient was found to have hypomagnesemia and hypokalemia Review of Systems Constitutional: Constitutional: Reports lethargy and Reports malaise Cardiovascular: Cardiovascular: Reports no additional cardiovascular complaints Respiratory: Respiratory: Reports no additional respiratory complaints Gastrointestinal: Gastrointestinal: Reports abdominal pain, Reports vomiting and Reports hematemesis Genitourinary: Genitourinary: Reports no additional female genitourinary complaints [facility] Medical History (Updated 11/17/22 @ 01:56 by Shavon Coto MD) GERD (gastroesophageal reflux disease) Hypertension Mood disorder No known health problems Peripheral neuropathy Functional capacity: independent ambulation Pertinent family history: No pertinent family history of CAD Surgical History No history of previous surgery Social History Alcohol intake: current Alcohol intake frequency: holidays/special occasions only Alcohol type: beer Substance Use Type: Marijuana Advance Directives: No Advance Directives Information Provided: No Meds Allergies Allergy/AdvReac Type Severity Reaction Status Date / Time peanut [PEANUT] Allergy Intermediate ITCHINESS Verified 08/16/22 16:22 Active Medications: Current Medications Potassium Chloride/Sodium Chloride (Kcl 40 Meq In 0.9 % Sodium Chl) 40 meq in 1,000 mls @ 250 mls/hr IV .Q4H ISAAK Stop: 11/17/22 04:14 Last Admin: 11/17/22 00:15 Dose: 250 mls/hr Magnesium Sulfate (Magnesium Sulfate/H2o) 2 gm in 50 mls @ 25 mls/hr IV ONCE ONE Stop: 11/17/22 02:24 Last Admin: 11/17/22 00:45 Dose: 25 mls/hr Pantoprazole Sodium (Pantoprazole Sodium 40 Mg/10 Ml Vial) 40 mg IVPUSH ONCE ONE Stop: 11/17/22 01:47 Pharmacy Consult (Consult Rx Perform Med Rec) 1 each MISCELLANE ONCE PRN PRN Reason: Consult order Physical Exam Vital Signs and Narrative: Vital Signs: Last Vital Signs Temp 98.4 F 11/16/22 23:55 Pulse 91 11/16/22 23:55 Resp 16 11/16/22 23:55 BP 161/106 H 11/16/22 23:55 Pulse Ox 100 11/16/22 23:55 O2 Del Method 11/16/22 23:55 BMI result Body Mass Index 28.8 Middle-aged male lying in bed in no distress Neck supple, no JVD Regular rate and rhythm, S1-S2 heard Regular breath sounds bilaterally, no wheezing or crackles appreciated Abdomen with epigastric tenderness, no guarding, no rigidity, no rebound tenderness Patient is awake, alert and oriented to self, place, time and person ; no focal motor deficit Psych: Normal mood No pedal edema Results Labs 11/16/22 22:51 11/16/22 22:51 Labs: Laboratory Results - last 24 hr 11/16/22 11/16/22 11/16/22 22:51 22:51 22:51 MCV 91.0 MCH 31.7 MCHC 34.9 RDW 13.9 Plt Count 330 MPV 9.3 L Immature Gran % (Auto) 0.3 Neut % (Auto) 80.3 H Lymph % (Auto) 13.2 L [place] % (Auto) 5.8 Eos % (Auto) 0.1 Baso % (Auto) 0.3 Lymph # (Auto) 1.5 [place] # (Auto) 0.7 Eos # (Auto) 0.0 Baso # (Auto) 0.0 Abs Immat Gran (auto) 0.03 Absolute Neuts (auto) 9.2 H Absolute Nucleated RBC 0.000 Nucleated RBC % (auto) 0.0 Anion Gap 17 Estim Creat Clear Calc 126.5 Estimated GFR > 60 Random Glucose 110 Calcium 10.3 H D Magnesium 1.5 L Total Bilirubin 1.5 H Direct Bilirubin 0.5 AST 39 H ALT 36 H Alkaline Phosphatase 112 Total Protein 7.9 Albumin 4.7 Lipase 8 Beta HCG, Quant < 2 COVID-19 (MIKAYLA) COVID-19 Clin Com Influenza Type A (INNA) Negative Influenza Type B (INNA) Negative Influenza A & B Note See Note 11/16/22 11/16/22 22:51 22:51 MCV MCH MCHC RDW Plt Count MPV Immature Gran % (Auto) Neut % (Auto) Lymph % (Auto) [place] % (Auto) Eos % (Auto) Baso % (Auto) Lymph # (Auto) [place] # (Auto) Eos # (Auto) Baso # (Auto) Abs Immat Gran (auto) Absolute Neuts (auto) Absolute Nucleated RBC Nucleated RBC % (auto) Anion Gap Estim Creat Clear Calc Estimated GFR Random Glucose Calcium Magnesium Total Bilirubin Direct Bilirubin AST ALT Alkaline Phosphatase Total Protein Albumin Lipase Beta HCG, Quant Cancelled COVID-19 (MIKAYLA) Negative COVID-19 Clin Com See Note Influenza Type A (INNA) Influenza Type B (INNA) Influenza A & B Note Imaging Radiologist's Impressions: Impressions Abdomen/Pelvis CT 11/16/22 23:30 IMPRESSION: Limited noncontrast study but no ancillary findings to suggest an esophageal injury, similar changes pneumomediastinum or pleural effusions. 8 mm calculus at the right ureteropelvic junction with adjacent fat stranding. No hydronephrosis. This could be symptomatic. Severe diffuse hepatic steatosis. Chest CT 11/16/22 23:30 IMPRESSION: Limited noncontrast study but no ancillary findings to suggest an esophageal injury, similar changes pneumomediastinum or pleural effusions. 8 mm calculus at the right ureteropelvic junction with adjacent fat stranding. No hydronephrosis. This could be symptomatic. Severe diffuse hepatic steatosis. Assessment and Plan (1) Hematemesis: Status: Acute (2) Hypokalemia: Status: Acute (3) Hypomagnesemia: Status: Acute Plan This is a 32-year-old female with pertinent history of essential hypertension, peripheral neuropathy, mood disorder, history of alcohol use disorder (last consumed alcohol 6 months ago) who presents to the emergency department for evaluation of hematemesis. #. Hematemesis in a patient with intractable nausea/vomiting and epigastric pain: Will admit patient with close monitoring and resuscitate with IV crystalloids. Administered 80 Protonix IV x1. Consulting GI and will keep patient NPO. Monitor hemodynamics and H&H #. Hypokalemia and hypomagnesemia due to GI losses. Repleted #. Essential hypertension: Hold antihypertensives in the setting of hematemesis. Resume as appropriate #. Mood disorder: Resume Cymbalta when no longer NPO #. Peripheral neuropathy: On Cymbalta and gabapentin #. History of Alcohol use disorder: Has been sober for the last 6 months DVT prophylaxis: Defer Lovenox in the setting of hematemesis Full code NPO Admit as inpatient and will require two night minimum hospital stay for possible endoscopic intervention. GI consult pending Time Spent With Patient Time: Total time managing care of this patient today ____ minutes. Quality Stroke Does the patient have a stroke diagnosis?: No VTE Prior VTE?: No VTE Risk Level:: Medical - low VTE Device Contraindication: Treatment Not Indicated VTE Drug Contraindication: Treatment Not Indicated
[2022-11-17] MEDS: Pantoprazole Sodium 40 MG/10 ML VIAL IVPUSH ×3 (01:56→16:25)
--- NOTE | 2022-11-17 02:43 | PC.NURSE ---
pt sleeping at this time, VSS, equal chest rise noted and unlabored
--- NOTE | 2022-11-17 04:00 | MHC.EDTECH ---
0400 rounding done ,vitals sign taken ,patient got up to use the bathroom ,then back to bed ,call christopher within reach .
[2022-11-17] MEDS: 0.9 % Sodium Chloride 1,000 ML 100 ML IVCONT (04:38)
--- NOTE | 2022-11-17 04:54 | PC.NURSE ---
pt has a 16f temp sensing padgett, pt is a icu pt and has had no urine output after bladder scanned for 595cc
[2022-11-17] MEDS: ondansetron HCL 4 MG/2 ML VIAL IVPUSH (06:03)
[2022-11-17 06:40] LABS: MANUAL DIFF FLAG NO
[2022-11-17 06:45] LABS: Basophils Percent Auto 0.4 % (0-2); Eosinophils Percent Auto 0.3 % (0-4); Hematocrit 37.9 % (37.0-47.0); Hemoglobin 12.7 g/dl (12.0-16.0); Imm Gran Abs Auto 0.04 X10*3/uL (0.00-0.03); Imm Gran Pct Auto 0.4 % (0.0-0.4); Lymphocytes Absolute Auto 2.4 X10*3/uL (1.2-4.9); Lymphocytes Percent Auto 23.5 % (20-40); Mean Corpuscular HGB Conc 33.5 g/dl (31.0-35.0); Mean Corpuscular Hemoglobin 31.9 pg (27.0-33.0); Mean Corpuscular Volume 95.2 fL (80.0-98.0); Mean Platelet Volume 9.4 fL (9.4-12.3); Monocytes Absolute Auto 0.7 X10*3/uL (0.1-1.2); Monocytes Percent Auto 6.6 % (2-11); Neutrophils Absolute Auto 6.9 x10*3/uL (2.0-8.3); Neutrophils Percent Auto 68.8 % (45-73); Platelet Count 260 X10*3/uL (160-400); Red Blood Count 3.98 X10*6/uL (4.20-5.50)
[2022-11-17 07:06] LABS: Blood Urea Nitrogen 9 mg/dL (9-16); Creatinine Clr Calc Pharmacy 144.3; Estimated Glomerular Filt Rate > 60; Glucose Random 88 mg/dL (60-115)
[2022-11-17 07:14] LABS: Anion Gap 16 (12-20); Calcium 8.6 mg/dL (8.4-10.2); Carbon Dioxide 24 mmol/L (22-29); Chloride 104 mmol/L (96-108); Potassium 4.2 mmol/L (3.3-5.1); Sodium 140 mmol/L (135-145)
--- NOTE | 2022-11-17 08:12 | PHA.MEDREC ---
Pharmacy Consult ? Medication Reconciliation Pharmacy has completed the medication reconciliation. Spoke with patient and reviewed medication list. She was mostly aware of which medications she was on and the doses. She did forget a few but when asked about them based on claim history she was able to confirm if she was taking or had stopped them.
[2022-11-17] MEDS: 0.9 % Sodium Chloride Flush 3 ML SYRINGE IVFLUSH ×2 (09:06→16:25)
--- NOTE | 2022-11-17 09:16 | HO.PM.IMPN ---
Subjective Subjective Date of Service: 11/17/22 Interval History: cc: hematemesis interval history:no further hematemesis Physical Exam Vital Signs: Vital Signs: Last Vital Signs Temp 97.8 F 11/17/22 07:27 Pulse 84 11/17/22 07:27 Resp 18 11/17/22 07:27 BP 120/67 11/17/22 07:27 Pulse Ox 97 11/17/22 07:27 O2 Del Method 11/17/22 07:27 BMI result Body Mass Index 29.7 General: AO X 3, no acute distress Resp: CTA bilateral, no accessory muscles used CVS: S1,S2,RRR GI: soft, non tender, non distended Neuro: motor grossly intact, alert Psych: appropriate affect, appropriate insight Objective Data Active Medications Acetaminophen (Acetaminophen 325 Mg Tablet) 650 mg PO Q6H PRN PRN Reason: Pain, Mild (Pain Scale 1-3) Sodium Chloride (Ns) 1,000 mls @ 100 mls/hr IVCONT .Q10H [facility] Last Admin: 11/17/22 04:38 Dose: 100 mls/hr Documented By: ISHAAN Melatonin (Melatonin 3 Mg Tablet) 6 mg PO BEDTIME PRN PRN Reason: Insomnia Morphine Sulfate (Morphine Sulfate 4 Mg/Ml Cartridge) 4 mg IVPUSH Q4H PRN; Protocol PRN Reason: Pain, Severe (Pain Scale 7-10) Ondansetron HCl (Ondansetron Hcl 4 Mg/2 Ml Vial) 4 mg IVPUSH Q8H PRN PRN Reason: Nausea and Vomiting Last Admin: 11/17/22 06:03 Dose: 4 mg Documented By: NIGEL Pantoprazole Sodium (Pantoprazole Sodium 40 Mg/10 Ml Vial) 40 mg IVPUSH BID@0630,1630 [facility] Last Admin: 11/17/22 09:06 Dose: 40 mg Documented By: JOHN Pharmacy Consult (Consult Rx Perform Med Rec) 1 each MISCELLANE ONCE PRN PRN Reason: Consult order Sodium Chloride (0.9 % Sodium Chloride Flush 3 Ml Syringe) 3 ml IVFLUSH QSHIFT [facility] Last Admin: 11/17/22 09:06 Dose: 3 ml Documented By: JOHN Labs 11/17/22 06:29 11/17/22 06:29 Labs: Laboratory Results - last 24 hr 11/16/22 11/16/22 11/16/22 22:51 22:51 22:51 MCV 91.0 MCH 31.7 MCHC 34.9 RDW 13.9 Plt Count 330 MPV 9.3 L Immature Gran % (Auto) 0.3 Neut % (Auto) 80.3 H Lymph % (Auto) 13.2 L [place] % (Auto) 5.8 Eos % (Auto) 0.1 Baso % (Auto) 0.3 Lymph # (Auto) 1.5 [place] # (Auto) 0.7 Eos # (Auto) 0.0 Baso # (Auto) 0.0 Abs Immat Gran (auto) 0.03 Absolute Neuts (auto) 9.2 H Absolute Nucleated RBC 0.000 Nucleated RBC % (auto) 0.0 Anion Gap 17 Estim Creat Clear Calc 126.5 Estimated GFR > 60 Random Glucose 110 Calcium 10.3 H D Magnesium 1.5 L Total Bilirubin 1.5 H Direct Bilirubin 0.5 AST 39 H ALT 36 H Alkaline Phosphatase 112 Total Protein 7.9 Albumin 4.7 Lipase 8 Beta HCG, Quant < 2 COVID-19 (MIKAYLA) COVID-19 Clin Com Influenza Type A (INNA) Negative Influenza Type B (INNA) Negative Influenza A & B Note See Note 11/16/22 11/16/22 11/17/22 22:51 22:51 06:29 MCV 95.2 MCH 31.9 MCHC 33.5 RDW 14.0 Plt Count 260 MPV 9.4 Immature Gran % (Auto) 0.4 Neut % (Auto) 68.8 Lymph % (Auto) 23.5 [place] % (Auto) 6.6 Eos % (Auto) 0.3 Baso % (Auto) 0.4 Lymph # (Auto) 2.4 [place] # (Auto) 0.7 Eos # (Auto) 0.0 Baso # (Auto) 0.0 Abs Immat Gran (auto) 0.04 H Absolute Neuts (auto) 6.9 Absolute Nucleated RBC 0.000 Nucleated RBC % (auto) 0.0 Anion Gap Estim Creat Clear Calc Estimated GFR Random Glucose Calcium Magnesium Total Bilirubin Direct Bilirubin AST ALT Alkaline Phosphatase Total Protein Albumin Lipase Beta HCG, Quant Cancelled COVID-19 (MIKAYLA) Negative COVID-19 Clin Com See Note Influenza Type A (INNA) Influenza Type B (INNA) Influenza A & B Note 11/17/22 06:29 MCV MCH MCHC RDW Plt Count MPV Immature Gran % (Auto) Neut % (Auto) Lymph % (Auto) [place] % (Auto) Eos % (Auto) Baso % (Auto) Lymph # (Auto) [place] # (Auto) Eos # (Auto) Baso # (Auto) Abs Immat Gran (auto) Absolute Neuts (auto) Absolute Nucleated RBC Nucleated RBC % (auto) Anion Gap 16 Estim Creat Clear Calc 144.3 Estimated GFR > 60 Random Glucose 88 Calcium 8.6 D Magnesium Total Bilirubin Direct Bilirubin AST ALT Alkaline Phosphatase Total Protein Albumin Lipase Beta HCG, Quant COVID-19 (MIKAYLA) COVID-19 Clin Com Influenza Type A (INNA) Influenza Type B (INNA) Influenza A & B Note Assessment and Plan (1) Hematemesis: Status: Acute Plan 32-year-old female with pertinent history of essential hypertension, peripheral neuropathy, mood disorder, history of alcohol use disorder (last consumed alcohol 6 months ago) who presented to the emergency department for evaluation of hematemesis. Hematemesis in a patient with intractable nausea/vomiting and epigastric pain suspect gastritis with M-W tear ppi, gi eval, ivf Hypokalemia and hypomagnesemia replaced, monitor HTN hold amlodipnie for possible hypotension, will continue metoprolol mood disorder cymbalta Peripheral neuropathy gabapentin alcoholic fatty liver reports 6 months soberiety DVT prophylaxis:? Defer Lovenox in the setting of hematemesis Full code reason for continued hospitalization:hematemesis work up Time Spent With Patient Time: Total time managing care of this patient today ____ minutes. Quality Stroke Does the patient have a stroke diagnosis?: No VTE Prior VTE?: No VTE Risk Level:: Medical - low VTE Device Contraindication: Treatment Not Indicated VTE Drug Contraindication: Treatment Not Indicated
--- NOTE | 2022-11-17 09:48 | P.CNGI_ITS ---
History of Present Illness Data of Consult Service Date: 11/17/22 Requesting physician: Shavon Coto Primary Care Provider: Magali Calabrese MD [facility] Reason for consult: Hematemesis 32 YF with hypertension, peripheral neuropathy, mood disorder, history of alcohol use disorder (last consumed alcohol 3-4 months ago) seen at [facility] on 11/16/22 with hematemesis.? Patient stated she ate baked chicken and broccoli 3 days ago and she started vomiting.? She was not able to keep anything down and had multiple episodes of nonbloody emesis over the next 2-3 days .? This was followed by sreaks of blood in her vomit.? Patient stated that she threw up a lot of BR blood yesterday and noted burning epigastric discomfort which is nonradiating, constant and without any relieving factors.? Patient denied fever, chills, dizziness, lightheadedness, chest discomfort, palpitations, shortness of breath, changes in urinary habits.? She denied flank pain, dysuria, hesitancy or urgency.? Did have 1 episode of diarrhea in the last 3 days. Pi denies further episodes of hematemsis since admission and nausea and abd pain has improved. Patient complains of intermittent heartburn and takes Omeprazole prn. She denies past hx of PUD or GI bleeding. She denies dysphagia, recent change in bowel habits, constipation, black stools or rectal bleeding. She notes intermittent diarrhea related to diet and may have lactose intolerance. Patient has a hx of htn and denies major cardiac or pulmonary problems, loud snoring or sleep apnea She had cardiac evaluation at [facility] [place] with a cardiac cath and an Echo (increased thickness of one part of the heart and no treatment was needed). Denies problems with anesthesia in the past. Denies being on chronic anticoagulation or taking aspirin or NSAIDS. Patient denies smoking and admits to intermittent EtOH abuse (binge drinking whiskey every 2-3 days) She stopped drinking since Jul, 2022 (hx of relapse x 2 since). Patient is Single, has no children and lives with a cousin. Patient denies known family history of PUD, colon polyps, colon cancer. Her great grandfather (maternal) due to stomach cancer. PAST EGD/COLONOSCOPY: Patient denies having an upper endoscopy or colonoscopy in the past. In the emergency department, patient was found to have hypomagnesemia and hypokalemia, H & H OF 15.2 & 43.6, total bilirubin of 1.5, AST 39, ALT 36. Patient was admitted and started on IV PPI and antiemetics. Repeat labs showed an H&H of 12.7 and 37.9 today 11/16/[address] SCAN SHOWED: Limited noncontrast study but no ancillary findings to suggest an esophageal injury, similar changes pneumomediastinum or pleural effusions. ? 8 mm calculus at the right ureteropelvic junction with adjacent fat stranding. No hydronephrosis. This could be symptomatic. ? Severe diffuse hepatic steatosis. Review of Systems Constitutional: Constitutional: Reports lethargy and Reports malaise Cardiovascular: Cardiovascular: Reports no additional cardiovascular complaints Respiratory: Respiratory: Reports no additional respiratory complaints Gastrointestinal: Gastrointestinal: Reports abdominal pain, Reports vomiting and Reports hematemesis Genitourinary: Genitourinary: Reports no additional female genitourinary complaints [facility] Past Medical History Medical History (Updated 11/17/22 @ 12:12 by Raghu Osborne MD) GERD (gastroesophageal reflux disease) Hypertension Mood disorder No known health problems Peripheral neuropathy Functional capacity: independent ambulation Surgical History Surgical History No history of previous surgery Social History Social History Household Members: Family Housing: Apartment Do you presently have visiting nurse or other home services: No Alcohol intake: current Alcohol intake frequency: holidays/special occasions only Alcohol type: beer Patient Tobacco Use Status: Never used Tobacco Substance Use Type: Marijuana service: No Meds Allergies Allergy/AdvReac Type Severity Reaction Status Date / Time peanut [PEANUT] Allergy Intermediate ITCHINESS Verified 08/16/22 16:22 Active Medications: Current Medications Acetaminophen (Acetaminophen 325 Mg Tablet) 650 mg PO Q6H PRN PRN Reason: Pain, Mild (Pain Scale 1-3) Cyanocobalamin (Cyanocobalamin (Vitamin B-12) 1,000 Mcg Tablet) 1,000 mcg PO DAILY [facility] Duloxetine HCl (Duloxetine Hcl 60 Mg Capsule.Dr) 60 mg PO DAILY [facility] Gabapentin (Gabapentin 300 Mg Capsule) 900 mg PO TID [facility] Sodium Chloride (Ns) 1,000 mls @ 100 mls/hr IVCONT .Q10H [facility] Last Admin: 11/17/22 04:38 Dose: 100 mls/hr Melatonin (Melatonin 3 Mg Tablet) 6 mg PO BEDTIME PRN PRN Reason: Insomnia Metoprolol Succinate (Metoprolol Succinate Er 25 Mg Tab.Er.24h) 25 mg PO DAILY [facility]; Protocol Morphine Sulfate (Morphine Sulfate 4 Mg/Ml Cartridge) 4 mg IVPUSH Q4H PRN; Protocol PRN Reason: Pain, Severe (Pain Scale 7-10) Ondansetron HCl (Ondansetron Hcl 4 Mg/2 Ml Vial) 4 mg IVPUSH Q8H PRN PRN Reason: Nausea and Vomiting Last Admin: 11/17/22 06:03 Dose: 4 mg Pantoprazole Sodium (Pantoprazole Sodium 40 Mg/10 Ml Vial) 40 mg IVPUSH BID@0630,1630 [facility] Last Admin: 11/17/22 09:06 Dose: 40 mg Pharmacy Consult (Consult Rx Perform Med Rec) 1 each MISCELLANE ONCE PRN PRN Reason: Consult order Sodium Chloride (0.9 % Sodium Chloride Flush 3 Ml Syringe) 3 ml IVFLUSH QSHIFT [facility] Last Admin: 11/17/22 09:06 Dose: 3 ml Home Medications Medication Instructions Recorded Confirmed Last Taken Type alpha lipoic acid 600 mg capsule 600 mg PO DAILY 11/17/22 11/17/22 11/15/22 History amlodipine 5 mg tablet 5 mg PO BEDTIME 11/17/22 11/17/22 11/15/22 History cyanocobalamin (vitamin B-12) 1,000 mcg PO DAILY 11/17/22 11/17/22 11/15/22 History 1,000 mcg capsule duloxetine 60 mg capsule,delayed 60 mg PO DAILY 11/17/22 11/17/22 11/15/22 History release gabapentin 300 mg capsule 900 mg PO TID 11/17/22 11/17/22 11/15/22 History metoprolol succinate 25 mg 25 mg PO DAILY 11/17/22 11/17/22 11/15/22 History tablet,extended release 24 hr omeprazole 20 mg capsule,delayed 20 mg PO DAILY PRN Heartburn 11/17/22 11/17/22 Unknown History release Physical Exam Vital Signs: Vital Signs: Last Vital Signs Temp 97.8 F 11/17/22 07:27 Pulse 84 11/17/22 07:27 Resp 18 11/17/22 07:27 BP 120/67 11/17/22 07:27 Pulse Ox 97 11/17/22 07:27 O2 Del Method 11/17/22 07:27 BMI result Body Mass Index 29.7 Const: General: healthy appearing and no acute distress Nutritional Appearance: overweight Orientation/consciousness: patient oriented x3 Limitations: no limitations HEENT: Head: Yes normal to inspection Ears: hearing grossly normal bilaterally Eyes: Sclerae: sclerae normal Pupils: Equal, round and reactive pupils present Neck: Neck: Yes normal visual inspection Chest: Chest palpation & inspection: normal inspection of the chest Resp: Effort & Inspection: normal respiratory effort Auscultation: clear to auscultation bilaterally Cardio: Palpation: normal PMI Rate: regular rate Rhythm: regular rhythm Heart sounds: S1 normal heart sound present, S2 normal heart sound present and no murmurs GI: Palpation (GI): Soft to palpation, nontender and No hepatosplenomegaly present Auscultation: normal bowel sounds Rectal Exam - Female: deferred Skin: General skin exam: no rashes or lesions noted Neuro: General: patient oriented x3, gait normal and moves all extremities Cranial nerves: Yes Equal, round and reactive pupils present Psych: Appearance: grossly normal Mental Status: mental status grossly normal Results Labs 11/17/22 06:29 11/17/22 06:29 Labs: Short CBC 11/16/22 11/17/22 Range/Units 22:51 06:29 WBC 11.5 H 10.0 (4.8-10.8) X10*3/uL Hgb 15.2 12.7 (12.0-16.0) g/dl Hct 43.6 37.9 (37.0-47.0) % Plt Count 330 260 (160-400) X10*3/uL BMP 11/16/22 11/17/22 22:51 06:29 Sodium 138 140 Potassium 2.9 L D 4.2 D Chloride 97 104 Carbon Dioxide 27 24 BUN 10 9 Creatinine 0.72 0.64 Calcium 10.3 H D 8.6 D Liver Function 11/16/22 Range/Units 22:51 Total Bilirubin 1.5 H (0.0-1.0) mg/dL Direct Bilirubin 0.5 (0.0-0.5) mg/dL AST 39 H (5-31) U/L ALT 36 H (0-31) U/L Alkaline Phosphatase 112 (39-117) U/L Albumin 4.7 (3.5-5.0) g/dL Assessment and Plan (1) Hematemesis: Status: Acute (2) GERD (gastroesophageal reflux disease): Status: Acute (3) Nausea & vomiting: Status: Acute Plan 32 YF with hypertension, peripheral neuropathy, mood disorder, history of alcoh ol use disorder (last consumed alcohol 3-4 months ago) seen at [facility] on 11/16/22 with hematemesis.? Patient stated that she threw up a lot of BR blood yesterday and noted burning epigastric discomfort which is nonradiating. Upper GI bleeding likely due to Kasey-Goel tear related to repeated vomiting. Other possibilities include erosive esophagitis, peptic ulcer disease, upper GI AVM. Varices are unlikely since labs and imaging studies are not suggestive of cirrhosis. RECOMMENDATIONS: 1. Agree with IV PPI and antiemetics 2. Proceed with urgent upper endoscopy today. Endoscopy procedure and potential complications including bleeding, perforation, reaction to anesthetics and aspiration pneumonia were reviewed with the patient and her Mom. She would like to proceed. Time Spent With Patient Time: Total time managing care of this patient today __30__ minutes. Procedures Date of Service Date of Service: 11/17/22
--- NOTE | 2022-11-17 11:00 | MHC.CM.PN ---
pt lives with a cousin she is covid vax x 3 has own ride home independent cm is not indicated
[2022-11-17 11:20] LABS: Bacteria Urine 1+ (None Seen); Hyaline Casts Urine 0-2 /LPF (0-2); RBC Urine 0-2 /HPF (0-2)
[2022-11-17 11:27] LABS: Appearance Urine Turbid; Color Urine Orange; Glucose Urine UA Negative (Negative); Leukocyte Esterase Urine Trace (Negative); Nitrite Urine Negative (Negative); PH 5.5 (5.0-9.0); Specific Gravity - Urine 1.025 (1.005-1.025); UACC Culture Trigger YES; UMIC TRIGGER UACC YES; Urine Blood Negative (Negative); Urine Ketones 15 mg/dL (Negative); Urine Protein Trace mg/dL (Neg-Trace)
--- NOTE | 2022-11-17 11:30 | P.CONAN_ITS ---
HPI - Anesthesia Eval Consult details Narrative: GI bleed PMFSH Active Problems Active Problems: All Active Problems (Updated 11/17/22 @ 01:56 by Shavon Coto MD) Hematemesis (Acute) GERD (gastroesophageal reflux disease) (Acute) Peripheral neuropathy (Acute) Hypomagnesemia (Acute) Hypokalemia (Acute) Nausea & vomiting (Acute) Past Medical History Medical History GERD (gastroesophageal reflux disease) Hypertension Mood disorder No known health problems Peripheral neuropathy Functional capacity: independent ambulation Family History Family history of problems with anesthesia: No Surgical History Surgical History No history of previous surgery History of Problems with Anesthesia: No Social History Social History Household Members: Family Housing: Apartment Do you presently have visiting nurse or other home services: No Alcohol intake: current Alcohol intake frequency: holidays/special occasions only Alcohol type: beer Patient Tobacco Use Status: Never used Tobacco Substance Use Type: Marijuana service: No Meds Allergies Allergy/AdvReac Type Severity Reaction Status Date / Time peanut [PEANUT] Allergy Intermediate ITCHINESS Verified 08/16/22 16:22 Active Medications: Current Medications Acetaminophen (Acetaminophen 325 Mg Tablet) 650 mg PO Q6H PRN PRN Reason: Pain, Mild (Pain Scale 1-3) Cyanocobalamin (Cyanocobalamin (Vitamin B-12) 1,000 Mcg Tablet) 1,000 mcg PO DAILY [facility] Duloxetine HCl (Duloxetine Hcl 60 Mg Capsule.Dr) 60 mg PO DAILY [facility] Gabapentin (Gabapentin 300 Mg Capsule) 900 mg PO TID [facility] Sodium Chloride (Ns) 1,000 mls @ 100 mls/hr IVCONT .Q10H [facility] Last Admin: 11/17/22 04:38 Dose: 100 mls/hr Melatonin (Melatonin 3 Mg Tablet) 6 mg PO BEDTIME PRN PRN Reason: Insomnia Metoprolol Succinate (Metoprolol Succinate Er 25 Mg Tab.Er.24h) 25 mg PO DAILY [facility]; Protocol Morphine Sulfate (Morphine Sulfate 4 Mg/Ml Cartridge) 4 mg IVPUSH Q4H PRN; Protocol PRN Reason: Pain, Severe (Pain Scale 7-10) Ondansetron HCl (Ondansetron Hcl 4 Mg/2 Ml Vial) 4 mg IVPUSH Q8H PRN PRN Reason: Nausea and Vomiting Last Admin: 11/17/22 06:03 Dose: 4 mg Pantoprazole Sodium (Pantoprazole Sodium 40 Mg/10 Ml Vial) 40 mg IVPUSH BID@0630,1630 [facility] Last Admin: 11/17/22 09:06 Dose: 40 mg Pharmacy Consult (Consult Rx Perform Med Rec) 1 each MISCELLANE ONCE PRN PRN Reason: Consult order Sodium Chloride (0.9 % Sodium Chloride Flush 3 Ml Syringe) 3 ml IVFLUSH QSHIFT [facility] Last Admin: 11/17/22 09:06 Dose: 3 ml Home Medications Medication Instructions Recorded Confirmed Last Taken Type alpha lipoic acid 600 mg capsule 600 mg PO DAILY 11/17/22 11/17/22 11/15/22 History amlodipine 5 mg tablet 5 mg PO BEDTIME 11/17/22 11/17/22 11/15/22 History cyanocobalamin (vitamin B-12) 1,000 mcg PO DAILY 11/17/22 11/17/22 11/15/22 History 1,000 mcg capsule duloxetine 60 mg capsule,delayed 60 mg PO DAILY 11/17/22 11/17/22 11/15/22 History release gabapentin 300 mg capsule 900 mg PO TID 11/17/22 11/17/22 11/15/22 History metoprolol succinate 25 mg 25 mg PO DAILY 11/17/22 11/17/22 11/15/22 History tablet,extended release 24 hr omeprazole 20 mg capsule,delayed 20 mg PO DAILY PRN Heartburn 11/17/22 11/17/22 Unknown History release Exam Exam Date and Time: November 17, 2022 1130 Height,Weight and Vital Signs: Height 5 ft 8 in Weight 88.7 kg Last Vital Signs Temp 97.8 F 11/17/22 07:27 Pulse 84 11/17/22 07:27 Resp 18 11/17/22 07:27 BP 120/67 11/17/22 07:27 Pulse Ox 97 11/17/22 07:27 O2 Del Method 11/17/22 07:27 Pertinent Lab Results Pertinent Lab Results: Laboratory Tests 11/16/22 11/16/22 11/16/22 22:51 22:51 22:51 WBC 11.5 H RBC 4.79 Hgb 15.2 Hct 43.6 MCV 91.0 MCH 31.7 MCHC 34.9 RDW 13.9 Plt Count 330 MPV 9.3 L Immature Gran % (Auto) 0.3 Neut % (Auto) 80.3 H Lymph % (Auto) 13.2 L [place] % (Auto) 5.8 Eos % (Auto) 0.1 Baso % (Auto) 0.3 Lymph # (Auto) 1.5 [place] # (Auto) 0.7 Eos # (Auto) 0.0 Baso # (Auto) 0.0 Abs Immat Gran (auto) 0.03 Absolute Neuts (auto) 9.2 H Absolute Nucleated RBC 0.000 Nucleated RBC % (auto) 0.0 Sodium 138 Potassium 2.9 L D Chloride 97 Carbon Dioxide 27 Anion Gap 17 BUN 10 Creatinine 0.72 Estim Creat Clear Calc 126.5 Estimated GFR > 60 Random Glucose 110 Calcium 10.3 H D Magnesium 1.5 L Total Bilirubin 1.5 H Direct Bilirubin 0.5 AST 39 H ALT 36 H Alkaline Phosphatase 112 Total Protein 7.9 Albumin 4.7 Lipase 8 Beta HCG, Quant < 2 Urine Color Urine Appearance Urine pH Ur Specific [place] Urine Protein Urine Glucose (UA) Urine Ketones Urine Blood Urine Nitrite Ur Leukocyte Esterase Urine RBC Urine WBC Ur Squamous Epith Cells Urine Bacteria Hyaline Casts COVID-19 ([facility]) COVID-19 Clin Com Influenza Type A ([facility]NA) Negative Influenza Type B (INNA) Negative Influenza A & B Note See Note 11/16/22 11/16/22 11/17/22 22:51 22:51 06:29 WBC 10.0 RBC 3.98 L Hgb 12.7 Hct 37.9 MCV 95.2 MCH 31.9 MCHC 33.5 RDW 14.0 Plt Count 260 MPV 9.4 Immature Gran % (Auto) 0.4 Neut % (Auto) 68.8 Lymph % (Auto) 23.5 [place] % (Auto) 6.6 Eos % (Auto) 0.3 Baso % (Auto) 0.4 Lymph # (Auto) 2.4 [place] # (Auto) 0.7 Eos # (Auto) 0.0 Baso # (Auto) 0.0 Abs Immat Gran (auto) 0.04 H Absolute Neuts (auto) 6.9 Absolute Nucleated RBC 0.000 Nucleated RBC % (auto) 0.0 Sodium Potassium Chloride Carbon Dioxide Anion Gap BUN Creatinine Estim Creat Clear Calc Estimated GFR Random Glucose Calcium Magnesium Total Bilirubin Direct Bilirubin AST ALT Alkaline Phosphatase Total Protein Albumin Lipase Beta HCG, Quant Cancelled Urine Color Urine Appearance Urine pH Ur Specific [place] Urine Protein Urine Glucose (UA) Urine Ketones Urine Blood Urine Nitrite Ur Leukocyte Esterase Urine RBC Urine WBC Ur Squamous Epith Cells Urine Bacteria Hyaline Casts COVID-19 ([facility]) Negative COVID-19 Clin Com See Note Influenza Type A ([facility]) Influenza Type B ([facility]NA) Influenza A & B Note 11/17/22 11/17/22 06:29 11:00 WBC RBC Hgb Hct MCV MCH MCHC RDW Plt Count MPV Immature Gran % (Auto) Neut % (Auto) Lymph % (Auto) [place] % (Auto) Eos % (Auto) Baso % (Auto) Lymph # (Auto) [place] # (Auto) Eos # (Auto) Baso # (Auto) Abs Immat Gran (auto) Absolute Neuts (auto) Absolute Nucleated RBC Nucleated RBC % (auto) Sodium 140 Potassium 4.2 D Chloride 104 Carbon Dioxide 24 Anion Gap 16 BUN 9 Creatinine 0.64 Estim Creat Clear Calc 144.3 Estimated GFR > 60 Random Glucose 88 Calcium 8.6 D Magnesium Total Bilirubin Direct Bilirubin AST ALT Alkaline Phosphatase Total Protein Albumin Lipase Beta HCG, Quant Urine Color [place] A Urine Appearance Turbid Urine pH 5.5 Ur Specific [place] 1.025 Urine Protein Trace Urine Glucose (UA) Negative Urine Ketones 15 Urine Blood Negative Urine Nitrite Negative Ur Leukocyte Esterase Trace H Urine RBC 0-2 Urine WBC 11-20 H Ur Squamous Epith Cells 11-20 Urine Bacteria 1+ Hyaline Casts 0-2 COVID-19 ([facility]) COVID-19 Clin Com Influenza Type A ([facility]) Influenza Type B ([facility]NA) Influenza A & B Note Airway Mallampati Class: II TM Dist: >3cm Heart: RRR Lungs: CTA Assessment and Plan Assessment Anesthesia Assessment: Anesthesia Plan Discussed and Chart Reviewed Final Anesthetic Review Family History of Problems with Anesthesia: No History of Problems with Anesthesia: No NPO: Yes ASA Class: II Final Preanesthetic Review: No Changes in Pt Med Stat, Meds/Allgs Chart Reviewed, Consent Obtained/Reviewed and Anes Risks/Benef Reviewed Patient Risk: Low Procedure Risk: Low Anesthetic Plan Anesthetic Plan: MAC: Disposition: Standard PACU
--- NOTE | 2022-11-17 12:09 | PM.UROCN ---
History of Present Illness Consult details Consult date: 11/17/22 Narrative: CC: right renal stone 32-year-old female Presented to hospital with 3 day history of nausea and vomiting. Will be undergoing upper endoscopy Imaging detected 8 mm right renal stone No symptoms currently Previously has passed stones without intervention CT ?8mm calculus at the right ureteropelvic junction with some adjacent perinephric fat stranding Discussion regarding ESWL risks and benefits discussed including 85% clearance range for 8 mm stone Would like to go ahead as outpatient Review of Systems Constitutional: Constitutional: Reports as per HPI and Reports no additional constitutional complaints Cardiovascular: Cardiovascular: Reports as per HPI and Reports no additional cardiovascular complaints Respiratory: Respiratory: Reports as per HPI and Reports no additional respiratory complaints Gastrointestinal: Gastrointestinal: Reports as per HPI and Reports no additional gastrointestinal complaints Genitourinary: Genitourinary: Reports as per HPI Musculoskeletal: Musculoskeletal: Reports no additional musculoskeletal complaints and Reports as per HPI Neurologic: Reports system reviewed and no additional complaints, except as documented and Reports as per HPI PMF Past Medical History Medical History (Updated 11/17/22 @ 12:12 by Raghu Osborne MD) GERD (gastroesophageal reflux disease) Hypertension Mood disorder No known health problems Peripheral neuropathy Functional capacity: independent ambulation Surgical History Surgical History No history of previous surgery Social History Social History Household Members: Family Housing: Apartment Do you presently have visiting nurse or other home services: No Alcohol intake: current Alcohol intake frequency: holidays/special occasions only Alcohol type: beer Patient Tobacco Use Status: Never used Tobacco Substance Use Type: Marijuana service: No Meds Allergies Allergy/AdvReac Type Severity Reaction Status Date / Time peanut [PEANUT] Allergy Intermediate ITCHINESS Verified 08/16/22 16:22 Active Medications: Current Medications Acetaminophen (Acetaminophen 325 Mg Tablet) 650 mg PO Q6H PRN PRN Reason: Pain, Mild (Pain Scale 1-3) Cyanocobalamin (Cyanocobalamin (Vitamin B-12) 1,000 Mcg Tablet) 1,000 mcg PO DAILY ISAAK Duloxetine HCl (Duloxetine Hcl 60 Mg Capsule.Dr) 60 mg PO DAILY ISAAK Gabapentin (Gabapentin 300 Mg Capsule) 900 mg PO TID ISAAK Sodium Chloride (Ns) 1,000 mls @ 100 mls/hr IVCONT .Q10H [facility] Last Admin: 11/17/22 04:38 Dose: 100 mls/hr Melatonin (Melatonin 3 Mg Tablet) 6 mg PO BEDTIME PRN PRN Reason: Insomnia Metoprolol Succinate (Metoprolol Succinate Er 25 Mg Tab.Er.24h) 25 mg PO DAILY ISAAK; Protocol Morphine Sulfate (Morphine Sulfate 4 Mg/Ml Cartridge) 4 mg IVPUSH Q4H PRN; Protocol PRN Reason: Pain, Severe (Pain Scale 7-10) Ondansetron HCl (Ondansetron Hcl 4 Mg/2 Ml Vial) 4 mg IVPUSH Q8H PRN PRN Reason: Nausea and Vomiting Last Admin: 11/17/22 06:03 Dose: 4 mg Pantoprazole Sodium (Pantoprazole Sodium 40 Mg/10 Ml Vial) 40 mg IVPUSH BID@0630,1630 [facility] Last Admin: 11/17/22 09:06 Dose: 40 mg Pharmacy Consult (Consult Rx Perform Med Rec) 1 each MISCELLANE ONCE PRN PRN Reason: Consult order Sodium Chloride (0.9 % Sodium Chloride Flush 3 Ml Syringe) 3 ml IVFLUSH QSHIFT [facility] Last Admin: 11/17/22 09:06 Dose: 3 ml Home Medications Medication Instructions Recorded Confirmed Last Taken Type alpha lipoic acid 600 mg capsule 600 mg PO DAILY 11/17/22 11/17/22 11/15/22 History amlodipine 5 mg tablet 5 mg PO BEDTIME 11/17/22 11/17/22 11/15/22 History cyanocobalamin (vitamin B-12) 1,000 mcg PO DAILY 11/17/22 11/17/22 11/15/22 History 1,000 mcg capsule duloxetine 60 mg capsule,delayed 60 mg PO DAILY 11/17/22 11/17/22 11/15/22 History release gabapentin 300 mg capsule 900 mg PO TID 11/17/22 11/17/22 11/15/22 History metoprolol succinate 25 mg 25 mg PO DAILY 11/17/22 11/17/22 11/15/22 History tablet,extended release 24 hr omeprazole 20 mg capsule,delayed 20 mg PO DAILY PRN Heartburn 11/17/22 11/17/22 Unknown History release Physical Exam Vital Signs: Vital Signs: Last Vital Signs Temp 98.0 F 11/17/22 11:48 Pulse 84 11/17/22 11:48 Resp 18 11/17/22 11:48 BP 124/84 11/17/22 11:48 Pulse Ox 97 11/17/22 11:48 O2 Del Method 11/17/22 11:48 BMI result Body Mass Index 29.7 Const: General: cooperative, healthy appearing, comfortable and no acute distress Orientation/consciousness: patient oriented x3 HEENT: Face and sinus: Yes normal facial exam Mouth: moist mucous membranes Neck: Neck: Yes normal visual inspection, Yes full ROM and Yes trachea midline Chest: Chest palpation & inspection: normal inspection of the chest Resp: Effort & Inspection: normal respiratory effort, able to speak in complete sentences and no respiratory distress GI: Inspection: Yes normal to inspection Back/Spine/Pelvis: Cervical Spine: normal cervical lordosis Thoracic/Lumbar Spine: thoracic and lumbar spine normal to inspection Skin: General skin exam: no rashes or lesions noted Neuro: General: patient oriented x3, tone normal and moves all extremities Extrem: General: Yes normal to inspection and Yes capillary refill normal Results Labs 11/17/22 06:29 11/17/22 06:29 Labs: Abnormal lab results 11/16/22 11/16/22 11/17/22 Range/Units 22:51 22:51 06:29 WBC 11.5 H (4.8-10.8) X10*3/uL RBC 3.98 L (4.20-5.50) X10*6/uL MPV 9.3 L (9.4-12.3) fL Neut % (Auto) 80.3 H (45-73) % Lymph % (Auto) 13.2 L (20-40) % Abs Immat Gran (auto) 0.04 H (0.00-0.03) X10*3/uL Absolute Neuts (auto) 9.2 H (2.0-8.3) x10*3/uL Potassium 2.9 L D (3.3-5.1) mmol/L Calcium 10.3 H D (8.4-10.2) mg/dL Magnesium 1.5 L (1.6-2.6) mg/dL Total Bilirubin 1.5 H (0.0-1.0) mg/dL AST 39 H (5-31) U/L ALT 36 H (0-31) U/L Urine Color Ur Leukocyte Esterase (Negative) Urine WBC (0-5) /HPF 11/17/22 Range/Units 11:00 WBC (4.8-10.8) X10*3/uL RBC (4.20-5.50) X10*6/uL MPV (9.4-12.3) fL Neut % (Auto) (45-73) % Lymph % (Auto) (20-40) % Abs Immat Gran (auto) (0.00-0.03) X10*3/uL Absolute Neuts (auto) (2.0-8.3) x10*3/uL Potassium (3.3-5.1) mmol/L Calcium (8.4-10.2) mg/dL Magnesium (1.6-2.6) mg/dL Total Bilirubin (0.0-1.0) mg/dL AST (5-31) U/L ALT (0-31) U/L Urine Color [place] A Ur Leukocyte Esterase Trace H (Negative) Urine WBC 11-20 H (0-5) /HPF Short CBC 11/16/22 11/17/22 Range/Units 22:51 06:29 WBC 11.5 H 10.0 (4.8-10.8) X10*3/uL Hgb 15.2 12.7 (12.0-16.0) g/dl Hct 43.6 37.9 (37.0-47.0) % Plt Count 330 260 (160-400) X10*3/uL BMP 11/16/22 11/17/22 22:51 06:29 Sodium 138 140 Potassium 2.9 L D 4.2 D Chloride 97 104 Carbon Dioxide 27 24 BUN 10 9 Creatinine 0.72 0.64 Calcium 10.3 H D 8.6 D Liver Function 11/16/22 Range/Units 22:51 Total Bilirubin 1.5 H (0.0-1.0) mg/dL Direct Bilirubin 0.5 (0.0-0.5) mg/dL AST 39 H (5-31) U/L ALT 36 H (0-31) U/L Alkaline Phosphatase 112 (39-117) U/L Albumin 4.7 (3.5-5.0) g/dL Urine 11/17/22 11/17/22 Range/Units 11:00 11:00 Urine Color [place] A Cancelled Urine Appearance Turbid Cancelled Urine pH 5.5 Cancelled (5.0-9.0) Ur Specific [place] 1.025 Cancelled (1.005-1.025) Urine Protein Trace Cancelled (Neg-Trace) mg/dL Urine Glucose (UA) Negative Cancelled (Negative) mg/dL All other labs normal. Assessment and Plan (1) Nephrolithiasis: Status: Acute Plan Extracorporeal Shock Wave Lithotripsy We discussed the nature of the decision and reasonable alternatives for performing the above surgery. Interventions include chemical dissolution, ESWL, ureteroscopy with laser lithotripsy and stent placement, PCNL. Options such as medical therapy were discussed. The relative uncertainties and benefits related to each alternate procedure were adequately discussed. General surgical risks including, but not limited to, pain, bleeding, infection, myocardial infarction, pulmonary embolus, deep vein thrombosis and cerebrovascular accident which may result in further hospitalization were discussed. Full disclosure of the procedure as well as all major risks, benefits and complications were discussed including but not limited to risks of bleeding, injury to the kidney with hematoma or debra-hematoma, failure to fragments stone, potential for ureteric obstruction from stone passage and need for secondary procedures. There is a small long-term risk of hypertension and a question ravi of diabetes. Success rate of fragmentation and passage is approximately 70- 75%. This is compared to the risks and benefits for ureteroscopy which has a higher success rate but is a more invasive procedure. The success rate of the procedure was discussed. Success of the procedure in the short-term does not necessarily guarantee that long-term success will be maintained. Suitable follow up will need to be maintained. The patient showed understanding of the discussion as well as the typical recovery time, and the outpatient nature of this procedure. Opportunity was given for questions. Repeat-back protocol used to confirm understanding. They wish to proceed with right ESWL Time Spent With Patient Time: Total time managing care of this patient today ____ minutes. Procedures Date of Service Date of Service: 11/17/22
--- NOTE | 2022-11-17 12:17 | P.BOP_ITS ---
Brief Operative Note Date of Service: 11/17/22 Pre-op diagnosis: UGI bleeding Post-op diagnosis: other (Esophagitis/healing Kasey-Goel tear) Procedure: EGD Surgeon: Suly Renee MD Anesthesia: MAC Was an Relocation Commissioner used for this Procedure?: No Estimated blood loss (mL): 0 Pathology: none sent Condition: stable Disposition: PACU
--- NOTE | 2022-11-17 12:18 | W.PM.OPN ---
Operative Note Operative Note Date of Service: 11/17/22 Narrative: Pre-op diagnosis: UGI bleeding Post-op diagnosis:?other (Esophagitis/healing Kasey-Goel tear) Surgeon: Suly Renee MD Anesthesia:?MAC FLEXIBLE TRANSORAL UPPER GASTROINTESTINAL ENDOSCOPY Consent: Indications for the procedure and potential complications of bleeding, perforation, reaction to medications and missed diagnosis were discussed with the patient and informed consent was obtained. Instrument: Olympus GIF H 190 mid size upper endoscope Monitoring: Vital signs and clinical assessment, continuous EKG monitoring, Pulse oximetry, Carbon Dioxide monitoring and blood pressure monitoring were done throughout the procedure. Procedure: The patient was placed in the left lateral decubitis position and pre-procedure medications were administered and a bite block was placed. The endoscope was inserted into the mouth and advanced under direct vision to the third part of duodenum. A careful inspection was made as the upper endoscope was withdrawn including a retroflexed examination of the proximal stomach; Findings and interventions are described below. Findings: Larynx: Normal Esophagus: GE junction at 35 cms. Focal esophagitis at GE junction with a single 2 cms linear erosion/likely healing MW tear without active bleeding. Stomach: Mild gastric erythema without ulcers. Grade 2 flap valve on retroflexed examination of the cardia. Duodenum: Normal bulb and descending duodenum Intervention: None Impression and Post Procedure Diagnosis: Endoscopy Findings: ESOPHAGUS: GE junction at 35 cms. Focal esophagitis at GE junction with a single 2 cms linear erosion/likely healing MW tear without active bleeding. UGI bleeding likely from MW tear. No blood seen in the UGI tract during EGD Plan: 1. Repeat CBC this afternoon. 2. OK to DC home on Omeprazole (20 mg twice daily x 4 weeks and then once a day) if repeat CBC is stable 3. 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
--- NOTE | 2022-11-17 12:22 | PC.NURSE ---
pt drinking water nad
--- NOTE | 2022-11-17 12:31 | PC.NURSE ---
dr elena at bedside going over findings pt verblaized understanding
[2022-11-17] MEDS: Gabapentin 300 MG CAPSULE 900 MG PO (16:25)
--- NOTE | 2022-11-17 16:38 | PM.DS ---
DS: Providers Provider Date of Service: 11/17/22 Date of admission: 11/17/22 01:47 Primary care physician: Magali Calabrese MD Consults: 11/17/22 01:47 Consult to Gastroenterology Routine Consulting Provider: Suly Renee Reason for consultation: hematemesis 11/17/22 07:16 Consult to Urology Routine Consulting Provider: Meghan Hanks Reason for consultation: non obstructing 8mm UPJ with fat stranding DS: Diagnosis Discharge Diagnosis (1) Hematemesis: Status: Acute (2) GERD (gastroesophageal reflux disease): Status: Acute (3) Nausea & vomiting: Status: Acute DS: Summary Hospital Course Hospital Course: from initial hpi: This is a 32-year-old female with pertinent history of essential hypertension, peripheral neuropathy, mood disorder, history of alcohol use disorder (last consumed alcohol 6 months ago) who presents to the emergency department for evaluation of hematemesis.? Patient states that about 3 days ago which she ate baked chicken and broccoli for dinner.? Soon after, she began throwing up.? Subsequently over the next 2-3 days patient was not able to keep anything down and had multiple episodes of nonbloody emesis.? It progressed to patient having streaks of blood in her vomit.? On the day of presentation, patient states that she threw up a lot of blood which was bright red.? She also has associated burning epigastric discomfort which is nonradiating, constant and without any relieving factors.? Patient denies any fever, chills, dizziness, lightheadedness, chest discomfort, palpitations, shortness of breath, changes in urinary habits.? No flank pain, dysuria, hesitancy or urgency.? Did have 1 episode of diarrhea in the last 3 days. In the emergency department, patient was found to have hypomagnesemia and hypokalemia hospital course: patient was admitted for Hematemesis with intractable nausea/vomiting and epigastric pain. she was treated with iv ppi. she has some acute blood loss anemia, hgb dropped from 15 to 12. did not require transfusion. had no further episodes inpatient. underwent EGD which showed MW tear, recommendations were for 14 days omeprazole 20mg bid then once daily. her hypokalemia and hypermagnesemia were replaced. patient was noted to have 8mm non obstructing ureteral stone. was seen by and will follow up outpatient. for her HTN she will continue amlodpine and metoprolol. for mood disorder was continued on cymbalta. for peripheral neuropathy on gabapentin. for alcoholic fatty liver, currently 6 months sober. patient is feeling better and will be discharged home. Time Spent with Patient Time attestation: Total time managing care of this patient today ____ minutes. Discharge coordination time: Greater than 30 minutes Quality: Safe Use of Opioids Does Pt have an Active Cancer Diagnosis on the Problem List?: No Quality: Stroke Does the patient have a stroke diagnosis?: No Physical Exam Vital Signs: Vital Signs: Last Vital Signs Temp 98.0 F 11/17/22 15:24 Pulse 80 11/17/22 15:24 Resp 18 11/17/22 15:24 BP 122/74 11/17/22 15:24 Pulse Ox 98 11/17/22 15:24 O2 Del Method 11/17/22 15:24 BMI result Body Mass Index 29.7 General: AO X 3, no acute distress Resp: CTA bilateral, no accessory muscles used CVS: S1,S2,RRR GI: soft, non tender, non distended Neuro: motor grossly intact, alert Psych: appropriate affect, appropriate insight DS: Data Data Completed and Pending Labs on day of discharge: Laboratory Results - last 24 hr 11/16/22 11/16/22 11/16/22 22:51 22:51 22:51 WBC 11.5 H RBC 4.79 Hgb 15.2 Hct 43.6 MCV 91.0 MCH 31.7 MCHC 34.9 RDW 13.9 Plt Count 330 MPV 9.3 L Immature Gran % (Auto) 0.3 Neut % (Auto) 80.3 H Lymph % (Auto) 13.2 L [place] % (Auto) 5.8 Eos % (Auto) 0.1 Baso % (Auto) 0.3 Lymph # (Auto) 1.5 [place] # (Auto) 0.7 Eos # (Auto) 0.0 Baso # (Auto) 0.0 Abs Immat Gran (auto) 0.03 Absolute Neuts (auto) 9.2 H Absolute Nucleated RBC 0.000 Nucleated RBC % (auto) 0.0 Sodium 138 Potassium 2.9 L D Chloride 97 Carbon Dioxide 27 Anion Gap 17 BUN 10 Creatinine 0.72 Estim Creat Clear Calc 126.5 Estimated GFR > 60 Random Glucose 110 Calcium 10.3 H D Magnesium 1.5 L Total Bilirubin 1.5 H Direct Bilirubin 0.5 AST 39 H ALT 36 H Alkaline Phosphatase 112 Total Protein 7.9 Albumin 4.7 Lipase 8 Beta HCG, Quant < 2 Urine Color Urine Appearance Urine pH Ur Specific [place] Urine Protein Urine Glucose (UA) Urine Ketones Urine Blood Urine Nitrite Ur Leukocyte Esterase Urine RBC Urine WBC Urine WBC Clumps Ur Squamous Epith Cells Ur Transition Epith Cell Ur Renal Epithelial Cell Calcium Oxalate Crystal Leucine Crystals Cystine Crystals Tyrosine Crystals Other Crystals Urine Bacteria Urine Parasites Bilirubin Casts Epithelial Casts Fatty Casts Hyaline Casts Granular Casts Waxy Casts Broad Casts RBC Casts WBC Casts Other Casts Urine Trichomonas Urine Yeast COVID-19 (MIKAYLA) COVID-19 Clin Com Influenza Type A (INNA) Negative Influenza Type B (INNA) Negative Influenza A & B Note See Note 11/16/22 11/16/22 11/17/22 22:51 22:51 06:29 WBC 10.0 RBC 3.98 L Hgb 12.7 Hct 37.9 MCV 95.2 MCH 31.9 MCHC 33.5 RDW 14.0 Plt Count 260 MPV 9.4 Immature Gran % (Auto) 0.4 Neut % (Auto) 68.8 Lymph % (Auto) 23.5 [place] % (Auto) 6.6 Eos % (Auto) 0.3 Baso % (Auto) 0.4 Lymph # (Auto) 2.4 [place] # (Auto) 0.7 Eos # (Auto) 0.0 Baso # (Auto) 0.0 Abs Immat Gran (auto) 0.04 H Absolute Neuts (auto) 6.9 Absolute Nucleated RBC 0.000 Nucleated RBC % (auto) 0.0 Sodium Potassium Chloride Carbon Dioxide Anion Gap BUN Creatinine Estim Creat Clear Calc Estimated GFR Random Glucose Calcium Magnesium Total Bilirubin Direct Bilirubin AST ALT Alkaline Phosphatase Total Protein Albumin Lipase Beta HCG, Quant Cancelled Urine Color Urine Appearance Urine pH Ur Specific [place] Urine Protein Urine Glucose (UA) Urine Ketones Urine Blood Urine Nitrite Ur Leukocyte Esterase Urine RBC Urine WBC Urine WBC Clumps Ur Squamous Epith Cells Ur Transition Epith Cell Ur Renal Epithelial Cell Calcium Oxalate Crystal Leucine Crystals Cystine Crystals Tyrosine Crystals Other Crystals Urine Bacteria Urine Parasites Bilirubin Casts Epithelial Casts Fatty Casts Hyaline Casts Granular Casts Waxy Casts Broad Casts RBC Casts WBC Casts Other Casts Urine Trichomonas Urine Yeast COVID-19 (MIKAYLA) Negative COVID-19 Clin Com See Note Influenza Type A (INNA) Influenza Type B (INNA) Influenza A & B Note 11/17/22 11/17/22 11/17/22 06:29 11:00 11:00 WBC RBC Hgb Hct MCV MCH MCHC RDW Plt Count MPV Immature Gran % (Auto) Neut % (Auto) Lymph % (Auto) [place] % (Auto) Eos % (Auto) Baso % (Auto) Lymph # (Auto) [place] # (Auto) Eos # (Auto) Baso # (Auto) Abs Immat Gran (auto) Absolute Neuts (auto) Absolute Nucleated RBC Nucleated RBC % (auto) Sodium 140 Potassium 4.2 D Chloride 104 Carbon Dioxide 24 Anion Gap 16 BUN 9 Creatinine 0.64 Estim Creat Clear Calc 144.3 Estimated GFR > 60 Random Glucose 88 Calcium 8.6 D Magnesium Total Bilirubin Direct Bilirubin AST ALT Alkaline Phosphatase Total Protein Albumin Lipase Beta HCG, Quant Urine Color [place] A Cancelled Urine Appearance Turbid Cancelled Urine pH 5.5 Cancelled Ur Specific [place] 1.025 Cancelled Urine Protein Trace Cancelled Urine Glucose (UA) Negative Cancelled Urine Ketones 15 Cancelled Urine Blood Negative Cancelled Urine Nitrite Negative Cancelled Ur Leukocyte Esterase Trace H Cancelled Urine RBC 0-2 Cancelled Urine WBC 11-20 H Cancelled Urine WBC Clumps Cancelled Ur Squamous Epith Cells 11-20 Cancelled Ur Transition Epith Cell Cancelled Ur Renal Epithelial Cell Cancelled Calcium Oxalate Crystal Cancelled Leucine Crystals Cancelled Cystine Crystals Cancelled Tyrosine Crystals Cancelled Other Crystals Cancelled Urine Bacteria 1+ Cancelled Urine Parasites Cancelled Bilirubin Casts Cancelled Epithelial Casts Cancelled Fatty Casts Cancelled Hyaline Casts 0-2 Cancelled Granular Casts Cancelled Waxy Casts Cancelled Broad Casts Cancelled RBC Casts Cancelled WBC Casts Cancelled Other Casts Cancelled Urine Trichomonas Cancelled Urine Yeast Cancelled COVID-19 (MIKAYLA) COVID-19 Clin Com Influenza Type A (INNA) Influenza Type B (INNA) Influenza A & B Note Discharge Plan Discharge Anticipated Discharge Date/Time: 11/17/22 16:34 Patient Disposition: Home, Self-Care Discharge Diagnosis: kumar quinn tear Referrals: Meghan Hanks MD [Physician] - 1 Week Magali Calabrese MD [Primary Care Provider] - 1 Week Discharge Medications: Continued amlodipine 5 mg tablet 5 mg PO BEDTIME gabapentin 300 mg capsule 900 mg PO TID duloxetine 60 mg capsule,delayed release(DR/EC) 60 mg PO DAILY cyanocobalamin (vitamin B-12) 1,000 mcg capsule 1,000 mcg PO DAILY metoprolol succinate 25 mg tablet extended release 24 hr 25 mg PO DAILY alpha lipoic acid 600 mg capsule 600 mg PO DAILY Changed omeprazole 20 mg capsule,delayed release(DR/EC) 20 mg PO BID Qty: 30 0RF Discharge Orders: Discharge Order (Routine); Ordered 11/17/22 Ordered By: Earl Tiwari Diet: Advance to usual diet Activity on Discharge: As tolerated Stand Alone Forms: Patient Portal Discharge page Care Plan Goals: recovery Health Concerns: stone, kumar quinn tear Plan of Treatment: omeprazole, follow up with urology Assessment: see above
[2022-11-17 17:30] LABS: Hematocrit 39.8 % (37.0-47.0); Hemoglobin 13.7 g/dl (12.0-16.0)
--- NOTE | 2022-11-18 09:00 | HO.POSTANES ---
Post Anesthesia Evaluation Post Anesthesia Evaluation Anesthesia: Monitored Mental Status: Awake Pain Control: Satisfactory Nausea/Vomiting: None Hydration: Adequate Anesthesia-Related Issues: No Anes. Related Issues
== END 2022-11-17 17:45 | disposition home or self-care (01) | DRG 242 ==
LOC: HO.ED 11-17 00:38 → HO.EDOVER 11-17 01:52 → HO.IMC 11-17 04:31
PROVIDERS: Internal Medicine Gastroenterology; Physician Assistant Medical; Admitting Provider Student in an Organized Health Care Education/Training Program; Emergency Provider Emergency Medicine; PCP Internal Medicine; Visit Provider Internal Medicine
PROC: 0DJ08ZZ Inspection of Upper Intestinal Tract, Via Natural or Artificial Opening Endoscopic (ICD-10-PCS; CPT 43235; principal; 2022-11-17 11:45)
DX: K22.6 Gastro-esophageal laceration-hemorrhage syndrome (principal); K21.01 Gastro-esophageal reflux disease with esophagitis, with bleeding; D62 Acute posthemorrhagic anemia; K70.0 Alcoholic fatty liver; E83.42 Hypomagnesemia; N20.0 Calculus of kidney; F39 Unspecified mood [affective] disorder; G62.9 Polyneuropathy, unspecified; E87.6 Hypokalemia; I10 Essential (primary) hypertension; Z20.822 Contact with and (suspected) exposure to COVID-19; Z91.010 Allergy to peanuts; Z79.899 Other long term (current) drug therapy
CPT/HCPCS: 43235; 36415; 71250; 74176; 80048; 80076; 81001; 83690; 83735; 84702; 85014; 85018; 85025; 87086; 87502; 87635; 93005; 96361; 96365; 96375; 99222; 99285; J2270; J2405; J2765; J3010; J3475

== ENCOUNTER 2022-11-28 06:04 | Day surgery (SDC) | payer OTHER, SELFPAY ==
[2022-11-28] VITALS (7 sets, daily range): BP systolic 120–142; BP diastolic 82–100; PULSE 87–109; RESP 16–18; TEMP 35.9–36.6; O2SAT 94–97; BMI 29.0
--- NOTE | ~2022-11-28 | XR_ITS ---
EXAMINATION: XR ABDOMEN KUB CLINICAL INDICATION: Right renal stone COMPARISON: CT 11/16/2022 TECHNIQUE: AP view of the abdomen. FINDINGS: There is an 8 mm calcification overlying the mid right kidney. Previously identified left lower pole renal calculus is not as well demonstrated due to overlying bowel contents though may be represented by a 3 mm calcification. Bowel gas pattern is nonobstructive. Moderate to large amount of stool is noted in the right abdomen. No acute osseous findings are seen. XR/XR KUB IMPRESSION: 8 mm calculus overlying the mid right kidney.
[2022-11-28] MEDS: Lactated Ringers 1,000 ML 50 ML IVCONT (06:44)
[2022-11-28 07:33] LABS: UPreg QC Valid YES; Urine Pregnancy NEGATIVE (NEGATIVE)
--- NOTE | 2022-11-28 07:40 | HO.ANESPROP2 ---
HPI - Anesthesia Eval Consult details Narrative: lithotripsy PMFSH Active Problems Active Problems: All Active Problems (Updated 11/17/22 @ 12:12 by Raghu Osborne MD) Nephrolithiasis (Acute) Hematemesis (Acute) GERD (gastroesophageal reflux disease) (Acute) Peripheral neuropathy (Acute) Hypomagnesemia (Acute) Hypokalemia (Acute) Nausea & vomiting (Acute) Past Medical History Medical History (Updated 11/17/22 @ 12:12 by Raghu Osborne MD) GERD (gastroesophageal reflux disease) Hypertension Mood disorder No known health problems Peripheral neuropathy Patient : No Family History Family history of problems with anesthesia: No Surgical History Surgical History No history of previous surgery History of Problems with Anesthesia: No Social History Social History Household Members: Family Housing: Apartment Do you presently have visiting nurse or other home services: No Alcohol intake: current Alcohol intake frequency: holidays/special occasions only Alcohol type: beer Patient Tobacco Use Status: Never used Tobacco Use of substances other than those prescribed or required for medical reasons: No Substance Use Type: Marijuana Are you DNR?: No Advance Directives: No Advance Directives Information Provided: Yes Patient : No service: No Meds Allergies Allergy/AdvReac Type Severity Reaction Status Date / Time peanut [PEANUT] Allergy Intermediate ITCHINESS Verified 08/16/22 16:22 Active Medications: Current Medications Acetaminophen (Acetaminophen 325 Mg Tablet) 975 mg PO ONCE ONE Stop: 11/28/22 07:35 Lactated Ringer's (Lr) 1,000 mls @ 50 mls/hr IVCONT .Q20H ISAAK Levofloxacin (Levofloxacin 500 Mg Tablet) 500 mg PO ONCE ONE Stop: 11/28/22 07:35 Home Medications Medication Instructions Recorded Confirmed Last Taken Type alpha lipoic acid 600 mg capsule 600 mg PO DAILY 11/17/22 11/28/22 11/15/22 History amlodipine 5 mg tablet 5 mg PO BEDTIME 11/17/22 11/28/22 11/15/22 History cyanocobalamin (vitamin B-12) 1,000 mcg PO DAILY 11/17/22 11/28/22 11/15/22 History 1,000 mcg capsule duloxetine 60 mg capsule,delayed 60 mg PO DAILY 11/17/22 11/28/22 11/15/22 History release gabapentin 300 mg capsule 900 mg PO TID 11/17/22 11/28/22 11/15/22 History metoprolol succinate 25 mg 25 mg PO DAILY 11/17/22 11/28/22 11/15/22 History tablet,extended release 24 hr Exam Exam Date and Time: November 28, 2022 0740 Height,Weight and Vital Signs: Height 5 ft 6 in Weight 81.647 kg Last Vital Signs Temp 96.6 F L 11/28/22 06:28 Pulse 109 H 11/28/22 06:28 Resp 16 11/28/22 06:28 BP 127/93 H 11/28/22 06:28 Pulse Ox 95 11/28/22 06:28 O2 Del Method 11/28/22 06:28 Pertinent Lab Results Pertinent Lab Results: Laboratory Tests 11/28/22 07:22 Urine Test NEGATIVE Airway Mallampati Class: I TM Dist: >3cm Neck ROM: Full Heart: ok Lungs: ok Assessment and Plan Assessment Anesthesia Assessment: Anesthesia Plan Discussed and Chart Reviewed Final Anesthetic Review Family History of Problems with Anesthesia: No History of Problems with Anesthesia: No NPO: Yes ASA Class: II Final Preanesthetic Review: No Changes in Pt Med Stat, Meds/Allgs Chart Reviewed, Consent Obtained/Reviewed and Anes Risks/Benef Reviewed Patient Risk: Low Procedure Risk: Low Anesthetic Plan Anesthetic Plan: MAC: and Agree w/ Assess. and Plan Disposition: Standard PACU
[2022-11-28] MEDS: Acetaminophen 325 MG TABLET 975 MG PO (07:44)
[2022-11-28] MEDS: levoFLOXacin 500 MG TABLET PO (07:44)
--- NOTE | 2022-11-28 08:45 | MHC.SHP ---
Pre-Procedural Eval Section A Date of Service: 11/28/22 The patient is an INPATIENT: No Changes since office visit: No Cold of Flu in the past 2 weeks, No New Medical Problems, No Changes in Medication and No Patient answered all questions The History & Physical has been completed within 30 days and I have reviewed it.: Yes Section B Chief Complaint: Calculus of kidney Details of Present Illness: right renal calculus Allergies: Allergies Allergy/AdvReac Type Severity Reaction Status Date / Time peanut [PEANUT] Allergy Intermediate ITCHINESS Verified 08/16/22 16:22 Review of Systems Sugical H&P ROS: Negative: Constitution, Cardiovascular, Respiratory, Neurological, Psychiatric, Hem-Onc, Allergic/Immunologic, Gastrointestinal, Genitourinary, Musculoskeletal, Integumentary, Endocrine and Eyes/Ears/Nose/Throat Exam Surgical H&P Exam: Normal: HEENT, Normal: Heart, Normal: Lungs, Normal: Extremities, Normal: Abdomen, Normal: Skin and Normal: Neurological Plan Diagnosis/Plan: Unchanged (right ESWL) I have reviewed the history and physical and performed a pertinent physical examination on my patient. No changes have occurred unless specified. Time Spent With Patient Time: Total time managing care of this patient today ____ minutes.
--- NOTE | 2022-11-28 08:55 | P.OP_ITS ---
Operative Note Operative Note Date of Service: 11/28/22 Narrative: PreOperative Diagnosis: right Renal stones Post Operative Diagnosis: right Renal stones Procedure: right ESWL Surgeon: Dr Raghu Osborne Anesthesia: mac/sedation Indications for procedure: The patient understands ESWL may be a staged procedure and subsequent intervention may be required based on imaging after ESWL. Quoted stone clearance rates for a solitary procedure are in the 70-80% range based primarily on stone location. They also understand there is a risk of bleeding to the kidney, infection, damage to adjacent organs, and stone migration following the procedure. - Imaging 8mm right Procedure: After informed consent was verified the patient was brought to the operating room and placed in a supine position. Anesthesia was performed per protocol. Safety pause time-out was performed. Imaging was displayed in the room and la terality confirmed. ESWL was performed. The 1st 500 shocks were performed at 60 hertz. These were performed with increasing power. Once maximum power was reached the rate was increased to 180 hertz. A total of 2500 shocks were given. Targeted imaging with ultrasound/fluoroscopy showed stone smudging suggestive of disintegration. The patient tolerated the procedure well and was transferred to the recovery area upon completion. Post procedure imaging will be organized. There was no evidence for flank discoloration.
[2022-11-28] MEDS: oxyCODONE HCl Immed Release 5 MG TABLET PO (09:20)
[2022-11-28] MEDS: Ketorolac Tromethamine 15 MG/ML VIAL IVPUSH (09:20)
[2022-11-28] MEDS: ondansetron HCL 4 MG/2 ML VIAL IVPUSH (09:32)
[2022-11-28] MEDS: fentaNYL citrate/PF 100 MCG/2 ML VIAL 25 MCG IVPUSH (09:48)
[2022-11-28] MEDS: Furosemide 20 MG TABLET PO (10:32)
== END 2022-11-28 11:35 | disposition home or self-care (01) ==
PROVIDERS: Anesthesiology; PCP Internal Medicine; Visit Provider Urology
PROC: (CPT 50590; principal; 2022-11-28 07:30)
DX: N20.0 Calculus of kidney (principal); I10 Essential (primary) hypertension; K21.9 Gastro-esophageal reflux disease without esophagitis; G62.9 Polyneuropathy, unspecified; F39 Unspecified mood [affective] disorder; Z79.899 Other long term (current) drug therapy; Z91.010 Allergy to peanuts
CPT/HCPCS: 50590; 74018; 81025; J1885; J2250; J2405; J2550; J3010

== ENCOUNTER 2022-12-21 05:32 | Emergency (ER) | payer OTHER, SELFPAY ==
--- NOTE | ~2022-12-21 | US_ITS ---
EXAMINATION: US ABDOMEN LIMITED CLINICAL INFORMATION: Elevated LFTs. COMPARISON: None TECHNIQUE: Real-time imaging of the right upper quadrant abdominal viscera. FINDINGS: PANCREAS: Normal. LIVER: Normal. The liver is normal in size. The liver contour is normal. There is diffuse increased liver parenchymal echogenicity, consistent with hepatic steatosis. No focal hepatic lesion. There is no intrahepatic biliary duct dilatation seen. GALLBLADDER: Normal. The gallbladder is physiologically distended without evidence of stones, sludge, polyps, wall thickening or pericholecystic fluid. COMMON BILE DUCT: Normal in caliber measuring cm in diameter. RIGHT KIDNEY: Normal. No hydronephrosis. There is a 3 mm nonobstructive calculus in the lower pole. No focal parenchymal lesions. The kidney measures 11.4 cm in maximum dimension. FREE FLUID: None. US/US abdomen limited IMPRESSION: * Hepatic steatosis. * Nonobstructive 3 mm calculus, lower pole right kidney.
[2022-12-21 05:56] VITALS: BP 169/102; PULSE 81; RESP 20; TEMP 36.6; O2SAT 97; BMI 32.3
[2022-12-21 07:25] LABS: Hematocrit 43.8 % (37.0-47.0); Mean Corpuscular HGB Conc 34.2 g/dl (31.0-35.0); Mean Corpuscular Hemoglobin 32.6 pg (27.0-33.0); Mean Corpuscular Volume 95.2 fL (80.0-98.0); Mean Platelet Volume 9.3 fL (9.4-12.3); Platelet Count 287 X10*3/uL (160-400); Red Cell Distribution Width 15.2 % (11.0-16.0); White Blood Count 11.5 X10*3/uL (4.8-10.8)
[2022-12-21 07:40] LABS: Alanine Aminotransferase 145 U/L (0-31); Albumin Level 4.8 g/dL (3.5-5.0); Alkaline Phosphatase 155 U/L (39-117); Anion Gap 17 (12-20); Aspartate Amino Transferase 150 U/L (5-31); Bilirubin Direct 0.5 mg/dL (0.0-0.5); Bilirubin Total 1.8 mg/dL (0.0-1.0); Blood Urea Nitrogen 7 mg/dL (9-16); Calcium 9.7 mg/dL (8.4-10.2); Carbon Dioxide 32 mmol/L (22-29); Chloride 97 mmol/L (96-108); Creatinine Clr Calc Pharmacy 130.3; Estimated Glomerular Filt Rate > 60; Glucose Random 124 mg/dL (60-115); Lipase 8 U/L (8-78); Potassium 3.3 mmol/L (3.3-5.1); Sodium 143 mmol/L (135-145); Total Protein 8.3 g/dL (6.5-8.0)
[2022-12-21 07:50] VITALS: BP 160/97; PULSE 79; RESP 18; TEMP 36.8; O2SAT 100
[2022-12-21 07:50] LABS: Appearance Urine Cloudy; Color Urine Dark Yellow; Glucose Urine UA Negative (Negative); Leukocyte Esterase Urine Trace (Negative); Nitrite Urine Negative (Negative); Specific Gravity - Urine 1.025 (1.005-1.025); UMIC TRIGGER UACC YES; Urine Blood Negative (Negative); Urine Ketones 40 mg/dL (Negative); Urine Protein 100 (2+) mg/dL (Neg-Trace)
[2022-12-21 07:52] LABS: Bacteria Urine Trace (None Seen); Hyaline Casts Urine 0-2 /LPF (0-2); UPreg QC Valid YES; Urine Pregnancy NEGATIVE (NEGATIVE); WBC Urine 0-5 /HPF (0-5)
--- NOTE | 2022-12-21 08:14 | ED.ABDPAIN ---
HPI - Abdominal Pain General Chief Complaint: Abdominal Pain Stated Complaint: Abd pain/Vomiting/hands numb Time Seen by Provider: 12/21/22 08:11 Source: patient Mode of arrival: ambulatory Limitations: no limitations History of Present Illness HPI narrative: 32-year-old female history of kidney stones history of recurrent vomiting was seen here last month that end with her get an endoscopy. Patient states she has had recurrent vomiting for the past 2 days and has been unable to keep anything down. Patient was seen did not have any liver function test done last month but today her LFTs are elevated including bilirubin AST ALT and alk-phos. Patient still has her gallbladder. She states she had a small flap tear on previous visit. HIstory of HTN, Neuropathy and fatty liver. She denies ETOh quit 6 months ago. MD elicited complaint: abdominal pain Pertinent past history: kidney stones Related Data Home Medications Medication Instructions Recorded Confirmed alpha lipoic acid 600 mg capsule 600 mg PO DAILY 11/17/22 11/28/22 amlodipine 5 mg tablet 5 mg PO BEDTIME 11/17/22 11/28/22 cyanocobalamin (vitamin B-12) 1,000 mcg PO DAILY 11/17/22 11/28/22 1,000 mcg capsule duloxetine 60 mg capsule,delayed 60 mg PO DAILY 11/17/22 11/28/22 release gabapentin 300 mg capsule 900 mg PO TID 11/17/22 11/28/22 metoprolol succinate 25 mg 25 mg PO DAILY 11/17/22 11/28/22 tablet,extended release 24 hr Previous Rx's Medication Instructions Recorded omeprazole 20 mg capsule,delayed 20 mg PO BID #30 caps 11/17/22 release naproxen 500 mg tablet 500 mg PO BID PRN pain 7 days #14 11/28/22 tabs tamsulosin 0.4 mg capsule 0.4 mg PO BEDTIME 14 days #14 caps 11/28/22 tramadol 50 mg tablet 50 mg PO Q6H PRN pain (scale score 11/28/22 1-3) #8 tabs metoclopramide HCl 10 mg tablet 10 mg PO Q6H PRN nausea and 12/21/22 (Reglan) vomiting #20 tabs Allergies Allergy/AdvReac Type Severity Reaction Status Date / Time peanut [PEANUT] Allergy Intermediate ITCHINESS Verified 08/16/22 16:22 Review of Systems Review of Systems Review of systems: General: Patient denies any fever chills recent illness or falls Musculoskeletal: Denies back pain or body aches or other injuries HEENT: denies headache, runny nose, ear pain Respiratory: denies shortness of breath, cough Cardiovascular: no chest pain or palpitations : denies dysuria, frequency Abdomen: nausea vomiting abdominal pain Extremities: no swelling, no pain Skin: no diaphoresis Yes all other systems are reviewed and are negative PMFSH Past Medical History Medical History (Updated 12/21/22 @ 11:24 by Bud Ga DO) GERD (gastroesophageal reflux disease) Hypertension Mood disorder No known health problems Peripheral neuropathy Surgical History No history of previous surgery Social History Social History Household Members: Family Housing: Apartment Do you presently have visiting nurse or other home services: No Alcohol intake: current Alcohol intake frequency: holidays/special occasions only Alcohol type: beer Patient Tobacco Use Status: Never used Tobacco Smoked in Last 30 Days: No Use of substances other than those prescribed or required for medical reasons: Yes Substance Use Type: Marijuana Substance Use Frequency: Occasionally Advance Directives: Yes Advance Directives Information Provided: Yes Advance Directives on File: No Patient : No service: No Physical Exam ED Vital Signs: Vital Signs - 24 hr 12/21/22 05:56 12/21/22 07:50 12/21/22 10:29 Temperature 97.8 F 98.2 F 98.3 F Pulse Rate 81 79 94 Respiratory Rate 20 18 18 Blood Pressure 169/102 H 160/97 H 123/78 Pulse Oximetry 97 100 97 Oxygen Delivery Method Room Air Room Air Room Air BMI result Body Mass Index 32.3 General: Well-appearing well-nourished in no signs of distress HEENT: Normocephalic atraumatic Neck: No signs of JVD, no masses no tenderness or lymphadenopathy Cardiovascular: Regular rate and rhythm Respiratory: Clear to auscultation bilaterally Abdomen: Soft nontender no masses rectal exam performed guiac negative 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 Extremities: Normal pedal pulses no signs of edema Skin: Dry warm no rashes Back: No tenderness full ROM Medical Decision Making Medical Decision Making MDM Narrative: I will give the patient fluids Reglan Benadryl Ativan will send patient for ultrasound and reassess. 1123 Patient sleeping in the room US and labs are all negative. She feels much better. I will send home. Differential Diagnosis Differential Diagnoses: The differential diagnosis associated with the presentation includes Cyclical vomiting marijuana hyperemesis cholecystitis hepatitis alcoholic hepatitis Dehydration Admission/Observation Consideration of admission/observation: Escalation of care including admission/observation considered Lab Data MDM Lab Attestation statement: I reviewed the patient's lab results. 12/21/22 07:20 12/21/22 07:20 Labs: Lab Results 12/21/22 12/21/22 12/21/22 Range/Units 07:20 07:20 07:40 WBC 11.5 H (4.8-10.8) X10*3/uL RBC 4.60 (4.20-5.50) X10*6/uL Hgb 15.0 (12.0-16.0) g/dl Hct 43.8 (37.0-47.0) % MCV 95.2 (80.0-98.0) fL MCH 32.6 (27.0-33.0) pg MCHC 34.2 (31.0-35.0) g/dl RDW 15.2 (11.0-16.0) % Plt Count 287 (160-400) X10*3/uL MPV 9.3 L (9.4-12.3) fL Absolute Nucleated RBC 0.000 (0.0-0.012) X10*3/uL Nucleated RBC % (auto) 0.0 (0.0-0.2) /100WBC Sodium 143 (135-145) mmol/L Potassium 3.3 D (3.3-5.1) mmol/L Chloride 97 (96-108) mmol/L Carbon Dioxide 32 H (22-29) mmol/L Anion Gap 17 (12-20) BUN 7 L (9-16) mg/dL Creatinine 0.69 (0.5-1.4) mg/dL Estim Creat Clear Calc 130.3 Estimated GFR > 60 Random Glucose 124 H (60-115) mg/dL Calcium 9.7 D (8.4-10.2) mg/dL Total Bilirubin 1.8 H (0.0-1.0) mg/dL Direct Bilirubin 0.5 (0.0-0.5) mg/dL AST 150 H (5-31) U/L ALT 145 H (0-31) U/L Alkaline Phosphatase 155 H (39-117) U/L Total Protein 8.3 H (6.5-8.0) g/dL Albumin 4.8 (3.5-5.0) g/dL Lipase 8 (8-78) U/L Urine Color Dark Yellow Urine Appearance Cloudy Urine pH 8.0 (5.0-9.0) Ur Specific [place] 1.025 (1.005-1.025) Urine Protein 100 (2+) H (Neg-Trace) mg/dL Urine Glucose (UA) Negative (Negative) mg/dL Urine Ketones 40 (Negative) mg/dL Urine Blood Negative (Negative) Urine Nitrite Negative (Negative) Ur Leukocyte Esterase Trace H (Negative) Urine RBC 3-5 H (0-2) /HPF Urine WBC 0-5 (0-5) /HPF Ur Squamous Epith Cells 6-10 (0-2) /HPF Urine Bacteria Trace (None Seen) Hyaline Casts 0-2 (0-2) /LPF Urine Test (NEGATIVE) 12/21/22 Range/Units 07:40 WBC (4.8-10.8) X10*3/uL RBC (4.20-5.50) X10*6/uL Hgb (12.0-16.0) g/dl Hct (37.0-47.0) % MCV (80.0-98.0) fL MCH (27.0-33.0) pg MCHC (31.0-35.0) g/dl RDW (11.0-16.0) % Plt Count (160-400) X10*3/uL MPV (9.4-12.3) fL Absolute Nucleated RBC (0.0-0.012) X10*3/uL Nucleated RBC % (auto) (0.0-0.2) /100WBC Sodium (135-145) mmol/L Potassium (3.3-5.1) mmol/L Chloride (96-108) mmol/L Carbon Dioxide (22-29) mmol/L Anion Gap (12-20) BUN (9-16) mg/dL Creatinine (0.5-1.4) mg/dL Estim Creat Clear Calc Estimated GFR Random Glucose (60-115) mg/dL Calcium (8.4-10.2) mg/dL Total Bilirubin (0.0-1.0) mg/dL Direct Bilirubin (0.0-0.5) mg/dL AST (5-31) U/L ALT (0-31) U/L Alkaline Phosphatase (39-117) U/L Total Protein (6.5-8.0) g/dL Albumin (3.5-5.0) g/dL Lipase (8-78) U/L Urine Color Urine Appearance Urine pH (5.0-9.0) Ur Specific [place] (1.005-1.025) Urine Protein (Neg-Trace) mg/dL Urine Glucose (UA) (Negative) mg/dL Urine Ketones (Negative) mg/dL Urine Blood (Negative) Urine Nitrite (Negative) Ur Leukocyte Esterase (Negative) Urine RBC (0-2) /HPF Urine WBC (0-5) /HPF Ur Squamous Epith Cells (0-2) /HPF Urine Bacteria (None Seen) Hyaline Casts (0-2) /LPF Urine Test NEGATIVE (NEGATIVE) Medications Administered Discontinued Medications Generic Name Dose Route Start Last Admin Trade Name Freq PRN Reason Stop Dose Admin Diphenhydramine HCl 50 mg 12/21/22 08:12 12/21/22 08:36 Diphenhydramine Hcl 50 Mg/Ml Vial IV 12/21/22 08:13 50 mg ONCE ONE Administration Famotidine 20 mg 12/21/22 08:12 12/21/22 08:37 Famotidine/Pf 20 Mg/2 Ml Vial IVPUSH 12/21/22 08:13 20 mg ONCE ONE Administration Sodium Chloride 1,000 mls @ 999 mls/hr 12/21/22 08:15 12/21/22 09:21 Ns IV 12/21/22 09:15 Infused .Q1H1M ISAAK Infusion Lorazepam 1 mg 12/21/22 08:12 12/21/22 08:37 Lorazepam 2 Mg/Ml Vial IVPUSH 12/21/22 08:13 1 mg ONCE ONE Administration Metoclopramide HCl 10 mg 12/21/22 08:12 12/21/22 08:36 Metoclopramide Hcl 10 Mg/2 Ml Vial IVPUSH 12/21/22 08:13 10 mg ONCE ONE Administration Discharge Plan Discharge Clinical Impression: Nausea & vomiting Patient Disposition: Home, Self-Care Instructions: Acute Nausea and Vomiting (ED) Additional Instructions: Please call to follow up with your doctor. If youd have any other concerns please return to the ED. Prescriptions: New metoclopramide HCl [Reglan] 10 mg tablet 10 mg PO Q6H PRN (Reason: nausea and vomiting) Qty: 20 0RF No Action tramadol 50 mg tablet 50 mg PO Q6H PRN (Reason: pain (scale score 1-3)) Qty: 8 0RF tamsulosin 0.4 mg capsule 0.4 mg PO BEDTIME 14 Days Qty: 14 0RF naproxen 500 mg tablet 500 mg PO BID PRN (Reason: pain) 7 Days Qty: 14 0RF amlodipine 5 mg tablet 5 mg PO BEDTIME gabapentin 300 mg capsule 900 mg PO TID duloxetine 60 mg capsule,delayed release(DR/EC) 60 mg PO DAILY cyanocobalamin (vitamin B-12) 1,000 mcg capsule 1,000 mcg PO DAILY metoprolol succinate 25 mg tablet extended release 24 hr 25 mg PO DAILY alpha lipoic acid 600 mg capsule 600 mg PO DAILY omeprazole 20 mg capsule,delayed release(DR/EC) 20 mg PO BID Qty: 30 0RF Stand Alone Forms: Work/School Release
[2022-12-21] MEDS: 0.9 % Sodium Chloride 1,000 ML 999 ML IV (08:36)
[2022-12-21] MEDS: diphenhydrAMINE HCL 50 MG/ML VIAL IV (08:36)
[2022-12-21] MEDS: Metoclopramide HCl 10 MG/2 ML VIAL IVPUSH (08:36)
[2022-12-21] MEDS: Famotidine/PF 20 MG/2 ML VIAL IVPUSH (08:37)
[2022-12-21] MEDS: LORazepam 2 MG/ML VIAL 1 MG IVPUSH (08:37)
[2022-12-21 10:29] VITALS: BP 123/78; PULSE 94; RESP 18; TEMP 36.8; O2SAT 97
== END 2022-12-21 11:41 | disposition home or self-care (01) ==
PROVIDERS: Emergency Provider Student in an Organized Health Care Education/Training Program; PCP Internal Medicine
DX: R11.2 Nausea with vomiting, unspecified (principal); R10.9 Unspecified abdominal pain; Z79.899 Other long term (current) drug therapy
CPT/HCPCS: 36415; 76705; 80053; 81001; 81025; 82248; 83690; 85027; 96361; 96374; 96375; 99284; J1200; J2060; J2765

== ENCOUNTER → 2023-01-11 10:46 | Outpatient (BNVA) | payer OTHER, SELFPAY | PROVIDERS: PCP Internal Medicine; Visit Provider Urology | DX: Z13.89 Encounter for screening for other disorder (principal) ==

== ENCOUNTER → 2023-01-11 10:46 | Outpatient (BNVA) | payer OTHER, SELFPAY | PROVIDERS: PCP Internal Medicine; Visit Provider Urology | DX: Z13.89 Encounter for screening for other disorder (principal) ==

== ENCOUNTER 2023-01-22 06:16 | Emergency (ER) | payer OTHER, SELFPAY ==
--- NOTE | ~2023-01-22 | CT_ITS ---
EXAMINATION: CT ABDOMEN AND PELVIS WITHOUT CONTRAST CLINICAL INFORMATION: Abdominal pain with nausea and vomiting. COMPARISON: 11/16/2022 CT scan of the abdomen and pelvis. TECHNIQUE: Multidetector volumetric imaging was performed from the superior aspect of the liver through the pubic symphysis. Sagittal and coronal reformatted images were obtained on the technologist's workstation. This CT examination was performed using dose optimization techniques as appropriate, variously including the following: *Automated exposure control *Adjustment of mA and/or kV according to patient size (this includes techniques or standardized protocols for targeted exams where dose is matched to indication/reason for exam; i.e. extremities or head) *Use of iterative reconstruction technique DLP: 749 mGy-cm FINDINGS: LUNG BASES: The visualized lung bases are unremarkable. LIVER, GALLBLADDER, AND BILIARY TREE: Diffuse decreased hepatic attenuation and mild enlargement without focal abnormality. No gallbladder/biliary abnormality. PANCREAS: Unremarkable. SPLEEN: Unremarkable. ADRENAL GLANDS: Unremarkable. KIDNEYS AND URETERS: Lower pole intrarenal calculi bilaterally. No hydroureteronephrosis. BLADDER: Unremarkable. GASTROINTESTINAL TRACT: The stomach, small bowel and appendix are unremarkable. Mild mural fatty infiltration in the colon without focal abnormality. No surrounding abnormality. The rectum is unremarkable. ABDOMINAL WALL: No significant hernia is appreciated. LYMPH NODES: No lymphadenopathy. VASCULAR: Unremarkable. PELVIC VISCERA: Unremarkable. OSSEOUS STRUCTURES: L5-S1 is transitional with sacralization of L5 and a rudimentary disc at L5-S1. CT/CT abdomen pelvis wo IV con IMPRESSION: 1. No acute intra-abdominal/pelvic abnormality to explain the patient's symptoms. 2. Mild hepatomegaly and hepatic steatosis without focal abnormality. 3. Nonobstructing lower pole intrarenal calculi bilaterally.
--- NOTE | ~2023-01-22 | US_ITS ---
EXAMINATION: US ABDOMEN LIMITED CLINICAL INFORMATION: Abdominal pain, elevated LFTs, vomiting. COMPARISON: Abdominal ultrasound dated 12/21/2022. TECHNIQUE: Real-time imaging of the right upper quadrant abdominal viscera. FINDINGS: PANCREAS: Visualized portions unremarkable. LIVER: Diffuse increased echotexture without focal abnormality. GALLBLADDER: Unremarkable. COMMON BILE DUCT: Normal in caliber measuring 0.5 cm in diameter. RIGHT KIDNEY: 11.4 cm. Echogenic focus in the lower pole measures 0.4 cm. FREE FLUID: None. US/US abdomen limited IMPRESSION: 1. Hepatic steatosis without focal abnormality. 2. Nonobstructing right lower pole intrarenal calculus.
[2023-01-22 06:21] VITALS: BP 173/113; PULSE 123; RESP 20; TEMP 36.3; O2SAT 97; BMI 32.3
[2023-01-22 06:36] LABS: Basophils Absolute Auto 0.1 X10*3/uL (0.0-0.2); Basophils Percent Auto 0.7 % (0-2); Eosinophils Absolute Auto 0.2 X10*3/uL (0.0-0.4); Eosinophils Percent Auto 1.6 % (0-4); Hematocrit 41.9 % (37.0-47.0); Hemoglobin 14.6 g/dl (12.0-16.0); Imm Gran Pct Auto 1.5 % (0.0-0.4); Lymphocytes Absolute Auto 2.5 X10*3/uL (1.2-4.9); Lymphocytes Percent Auto 18.5 % (20-40); MANUAL DIFF FLAG NO; Mean Corpuscular HGB Conc 34.8 g/dl (31.0-35.0); Mean Corpuscular Hemoglobin 34.3 pg (27.0-33.0); Mean Corpuscular Volume 98.4 fL (80.0-98.0); Mean Platelet Volume 9.5 fL (9.4-12.3); Monocytes Absolute Auto 0.9 X10*3/uL (0.1-1.2); Monocytes Percent Auto 6.4 % (2-11); Neutrophils Absolute Auto 9.6 x10*3/uL (2.0-8.3); Neutrophils Percent Auto 71.3 % (45-73); Platelet Count 271 X10*3/uL (160-400); Red Blood Count 4.26 X10*6/uL (4.20-5.50); Red Cell Distribution Width 14.3 % (11.0-16.0); White Blood Count 13.5 X10*3/uL (4.8-10.8)
--- NOTE | 2023-01-22 07:12 | ED.NAVMDI ---
HPI - Nausea/Vomiting/Diarrhea General Chief complaint: Nausea/Vomiting/Diarrhea Stated complaint: Vomiting Time Seen by Provider: 01/22/23 06:46 Source: patient Mode of arrival: ambulatory Limitations: no limitations History of Present Illness HPI Narrative: 32-year-old female came in for evaluation of nausea, vomiting, diarrhea for the past 3 days. Symptoms started 3 days ago after ate pork chops, with epigastric abdominal pain followed by nausea, vomiting and diarrhea patient been having cramps that is constant for the past 3 days, no relieving or exacerbating factors, no fever association, no other sick contacts, no recent travel, no recent use of antibiotic. Nonbloody watery diarrhea 5-10 times a day. Related Data Home Medications Medication Instructions Recorded Confirmed alpha lipoic acid 600 mg capsule 600 mg PO DAILY 11/17/22 11/28/22 amlodipine 5 mg tablet 5 mg PO BEDTIME 11/17/22 11/28/22 cyanocobalamin (vitamin B-12) 1,000 mcg PO DAILY 11/17/22 11/28/22 1,000 mcg capsule duloxetine 60 mg capsule,delayed 60 mg PO DAILY 11/17/22 11/28/22 release gabapentin 300 mg capsule 900 mg PO TID 11/17/22 11/28/22 metoprolol succinate 25 mg 25 mg PO DAILY 11/17/22 11/28/22 tablet,extended release 24 hr cyanocobalamin (vitamin B-12) 1,000 mcg PO DAILY 01/11/23 1,000 mcg tablet folic acid 1 mg tablet 1 mg PO DAILY 01/11/23 Previous Rx's Medication Instructions Recorded omeprazole 20 mg capsule,delayed 20 mg PO BID #30 caps 11/17/22 release naproxen 500 mg tablet 500 mg PO BID PRN pain 7 days #14 11/28/22 tabs tamsulosin 0.4 mg capsule 0.4 mg PO BEDTIME 14 days #14 caps 11/28/22 tramadol 50 mg tablet 50 mg PO Q6H PRN pain (scale score 11/28/22 1-3) #8 tabs metoclopramide HCl 10 mg tablet 10 mg PO Q6H PRN nausea and 12/21/22 (Reglan) vomiting #20 tabs Allergies Allergy/AdvReac Type Severity Reaction Status Date / Time peanut [PEANUT] Allergy Intermediate ITCHINESS Verified 01/11/23 10:47 Review of Systems Review of Systems: All other systems are reviewed and are negative Constitutional: Reports as per HPI and Reports no additional constitutional complaints Eyes: Reports as per HPI and Reports no additional eye complaints Reports system reviewed and no additional complaints, except as documented Cardiovascular: Reports as per HPI and Reports no additional cardiovascular complaints Respiratory: Reports as per HPI and Reports no additional respiratory complaints Gastrointestinal: Reports as per HPI and Reports no additional gastrointestinal complaints Genitourinary: Reports no additional female genitourinary complaints Musculoskeletal: Reports no additional musculoskeletal complaints Skin/Breast: Reports system reviewed and no additional complaints, except as docu Psychiatric: Reports no additional psychiatric complaints Endocrine: Reports no additional endocrine complaints Hematologic/Lymphatic: Reports no additional hematologic/lymphatic complaints Allergic/Immunologic: Reports no additional allergic/immunologic complaints Reports system reviewed and no additional complaints, except as documented and Reports Abnormal speech present [facility] Past Medical History Medical History GERD (gastroesophageal reflux disease) Hypertension Mood disorder No known health problems Peripheral neuropathy Surgical History No history of previous surgery Social History Social History Household Members: Family Housing: Apartment Do you presently have visiting nurse or other home services: No Alcohol intake: current Alcohol intake frequency: holidays/special occasions only Alcohol type: beer Patient Tobacco Use Status: Never used Tobacco Substance Use Type: Marijuana Advance Directives: No service: No Physical Exam Vital Signs: Vital Signs: Last Vital Signs Temp 97.8 F 01/22/23 12:24 Pulse 105 H 01/22/23 12:24 Resp 14 01/22/23 12:24 BP 170/110 H 01/22/23 11:27 Pulse Ox 100 01/22/23 12:24 O2 Del Method Room Air 01/22/23 11:27 BMI result Body Mass Index 32.3 Vital signs have been reviewed as appeared to be correct. Blood pressure normal. Heart rate elevated. Respiration rate normal. Temperature normal. Oxygen saturation normal. Appearance: Alert. Oriented X3. No acute distress. Head: Normal external exam. Normocephalic. Atraumatic. No Lan signs noted. No raccoon eyes noted Eyes: PERRLA. EOMI. Conjunctiva and sclera normal. Eyelids normal. ENT: TM's Normal. Pharynx normal. Uvula midline. Moist mucous membranes. No trismus noted. No drooling noted. No muffled voice noted. Neck: Normal inspection. Neck supple. FROM. No adenopathy. Thyroid Normal. No meningeal signs. No neck mass noted. CVS: Normal heart rate and rhythm. Heart sound normal. No murmurs noted. Pulses normal throughout. Respiratory: No respiratory distress. Painless inspiration. Breath sounds normal. No wheezes/rales/rhonchi noted. Chest nontender. No accessory muscle usage noted or decreased air movement noted. Abdomen: Soft, epigastric tenderness, no guarding, no rebound tenderness.. Bowel sounds normal in all 4 quadrants. No distention noted. No organomegaly noted. No visible injury noted. Back: No CVA tenderness. Full range of motion noted. Skin: Skin warm and dry. Normal skin color. Normal skin turgor. No rashes/lesions/lacerations noted. Extremities: No lower extremity edema. Extremities exhibit normal range of motion. Extremities nontender. Neuro: Oriented X 3. Cranial nerve exam: II-XII are grossly intact No motor deficit. No sensory deficit. Reflexes normal. Course Course Course Narrative: 32-year-old female came in with nausea, vomiting, and diarrhea after eating outside, physical exam, history, CT abdomen pelvis are consistent with gastroenteritis, reactionary leukocytosis, feels better after IV hydration and medication. Able to tolerate p.o. intake. Medications Administered Discontinued Medications Generic Name Dose Route Start Last Admin Trade Name Freq PRN Reason Stop Dose Admin Al Hydroxide/Mg Hydroxide 30 ml 01/22/23 07:10 01/22/23 07:24 Magnesium Hydrox/Alum Hydrox 30 Ml Oral.Susp PO 01/22/23 07:11 30 ml ONCE ONE Administration Famotidine 20 mg 01/22/23 07:10 01/22/23 07:24 Famotidine/Pf 20 Mg/2 Ml Vial IVPUSH 01/22/23 07:11 20 mg ONCE ONE Administration Sodium Chloride 1,000 mls @ 999 mls/hr 01/22/23 07:10 01/22/23 08:25 Ns IV 01/22/23 08:10 Infused .Q1H1M ONE Infusion Promethazine HCl 12.5 mg/ 50.5 mls @ 202 mls/hr 01/22/23 11:45 01/22/23 12:14 Sodium Chloride IV 01/22/23 11:46 Infused ONCE ONE Infusion Promethazine HCl 12.5 mg/ 50.5 mls @ 202 mls/hr 01/22/23 12:12 01/22/23 12:41 Sodium Chloride IV 01/22/23 12:13 Infused ONCE ONE Infusion Ketorolac Tromethamine 15 mg 01/22/23 07:11 01/22/23 07:24 Ketorolac Tromethamine 15 Mg/Ml Vial IVPUSH 01/22/23 07:12 15 mg ONCE ONE Administration Loperamide HCl 2 mg 01/22/23 07:10 01/22/23 07:24 Loperamide Hcl 2 Mg Capsule PO 01/22/23 07:11 2 mg ONCE ONE Administration Metoclopramide HCl 10 mg 01/22/23 08:16 01/22/23 08:23 Metoclopramide Hcl 10 Mg/2 Ml Vial IVPUSH 01/22/23 08:17 10 mg ONCE ONE Administration Metoclopramide HCl 10 mg 01/22/23 10:28 01/22/23 10:35 Metoclopramide Hcl 10 Mg/2 Ml Vial IVPUSH 01/22/23 10:29 10 mg ONCE ONE Administration Morphine Sulfate 2 mg 01/22/23 10:26 01/22/23 10:35 Morphine Sulfate 2 Mg/Ml Cartridge IVPUSH 01/22/23 10:27 2 mg ONCE ONE Administration Protocol Morphine Sulfate 2 mg 01/22/23 12:12 01/22/23 12:22 Morphine Sulfate 2 Mg/Ml Cartridge IVPUSH 01/22/23 12:13 2 mg ONCE ONE Administration Protocol Ondansetron HCl 4 mg 01/22/23 07:10 01/22/23 07:24 Ondansetron Hcl 4 Mg/2 Ml Vial IVPUSH 01/22/23 07:11 4 mg ONCE ONE Administration Medical Decision Making Differential Diagnosis Differential Diagnoses: The differential diagnosis associated with the presentation includes (Gastroenteritis, dehydration, electrolyte disturbance, anemia, food poisoning, appendicitis.) Admission/Observation Consideration of admission/observation: Escalation of care including admission/observation considered Lab Data MDM Lab Attestation statement: I reviewed the patient's lab results. 01/22/23 06:32 01/22/23 06:32 Labs: Lab Results 01/22/23 01/22/23 01/22/23 Range/Units 06:32 06:32 10:30 WBC 13.5 H (4.8-10.8) X10*3/uL RBC 4.26 (4.20-5.50) X10*6/uL Hgb 14.6 (12.0-16.0) g/dl Hct 41.9 (37.0-47.0) % MCV 98.4 H (80.0-98.0) fL MCH 34.3 H (27.0-33.0) pg MCHC 34.8 (31.0-35.0) g/dl RDW 14.3 (11.0-16.0) % Plt Count 271 (160-400) X10*3/uL MPV 9.5 (9.4-12.3) fL Immature Gran % (Auto) 1.5 H (0.0-0.4) % Neut % (Auto) 71.3 (45-73) % Lymph % (Auto) 18.5 L (20-40) % Whitley % (Auto) 6.4 (2-11) % Eos % (Auto) 1.6 (0-4) % Baso % (Auto) 0.7 (0-2) % Lymph # (Auto) 2.5 (1.2-4.9) X10*3/uL [place]ley # (Auto) 0.9 (0.1-1.2) X10*3/uL Eos # (Auto) 0.2 (0.0-0.4) X10*3/uL Baso # (Auto) 0.1 (0.0-0.2) X10*3/uL Abs Immat Gran (auto) 0.20 H (0.00-0.03) X10*3/uL Absolute Neuts (auto) 9.6 H (2.0-8.3) x10*3/uL Absolute Nucleated RBC 0.000 (0.0-0.012) X10*3/uL Nucleated RBC % (auto) 0.0 (0.0-0.2) /100WBC Sodium 141 (135-145) mmol/L Potassium 3.5 (3.3-5.1) mmol/L Chloride 99 (96-108) mmol/L Carbon Dioxide 27 (22-29) mmol/L Anion Gap 19 (12-20) BUN 4 L (9-16) mg/dL Creatinine 0.69 (0.5-1.4) mg/dL Estim Creat Clear Calc 130.3 Estimated GFR > 60 Random Glucose 131 H (60-115) mg/dL Calcium 9.4 (8.4-10.2) mg/dL Total Bilirubin 0.9 (0.0-1.0) mg/dL Direct Bilirubin 0.3 (0.0-0.5) mg/dL AST 325 H (5-31) U/L ALT 174 H (0-31) U/L Alkaline Phosphatase 137 H (39-117) U/L Total Protein 7.4 (6.5-8.0) g/dL Albumin 4.5 (3.5-5.0) g/dL Lipase 21 (8-78) U/L Beta HCG, Quant < 2 mIU/mL Urine Color Yellow Urine Appearance Clear Urine pH 7.0 (5.0-9.0) Ur Specific [place] 1.015 (1.005-1.025) Urine Protein Negative (Neg-Trace) mg/dL Urine Glucose (UA) Negative (Negative) mg/dL Urine Ketones Negative (Negative) mg/dL Urine Blood Negative (Negative) Urine Nitrite Negative (Negative) Ur Leukocyte Esterase Negative (Negative) Independent Interpretation I performed an independent interpretation of an: CT Scan (Abdomen and pelvis: No acute intra-abdominal pathology.) Radiology Impression Discussion of test interpretation with radiology: I have reviewed the radiologist's reading. Discharge Plan Discharge Clinical Impression: Gastroenteritis Patient Disposition: Home, Self-Care Instructions: Gastroenteritis (ED) Prescriptions: No Action tramadol 50 mg tablet 50 mg PO Q6H PRN (Reason: pain (scale score 1-3)) Qty: 8 0RF tamsulosin 0.4 mg capsule 0.4 mg PO BEDTIME 14 Days Qty: 14 0RF naproxen 500 mg tablet 500 mg PO BID PRN (Reason: pain) 7 Days Qty: 14 0RF metoclopramide HCl [Reglan] 10 mg tablet 10 mg PO Q6H PRN (Reason: nausea and vomiting) Qty: 20 0RF amlodipine 5 mg tablet 5 mg PO BEDTIME gabapentin 300 mg capsule 900 mg PO TID duloxetine 60 mg capsule,delayed release(DR/EC) 60 mg PO DAILY cyanocobalamin (vitamin B-12) 1,000 mcg capsule 1,000 mcg PO DAILY metoprolol succinate 25 mg tablet extended release 24 hr 25 mg PO DAILY alpha lipoic acid 600 mg capsule 600 mg PO DAILY omeprazole 20 mg capsule,delayed release(DR/EC) 20 mg PO BID Qty: 30 0RF cyanocobalamin (vitamin B-12) 1,000 mcg tablet 1,000 mcg PO DAILY folic acid 1 mg tablet 1 mg PO DAILY Referrals: Magali Calabrese MD [Primary Care Provider] - Stand Alone Forms: Work/School Release
[2023-01-22] MEDS: Famotidine/PF 20 MG/2 ML VIAL IVPUSH (07:24)
[2023-01-22] MEDS: Loperamide HCl 2 MG CAPSULE PO (07:24)
[2023-01-22] MEDS: 0.9 % Sodium Chloride 1,000 ML 999 ML IV (07:24)
[2023-01-22] MEDS: Magnesium Hydrox/Alum Hydrox 30 ML ORAL.SUSP PO (07:24)
[2023-01-22] MEDS: Ketorolac Tromethamine 15 MG/ML VIAL IVPUSH (07:24)
[2023-01-22] MEDS: ondansetron HCL 4 MG/2 ML VIAL IVPUSH (07:24)
[2023-01-22 07:26] LABS: Alanine Aminotransferase 174 U/L (0-31); Albumin Level 4.5 g/dL (3.5-5.0); Alkaline Phosphatase 137 U/L (39-117); Anion Gap 19 (12-20); Aspartate Amino Transferase 325 U/L (5-31); Bilirubin Direct 0.3 mg/dL (0.0-0.5); Bilirubin Total 0.9 mg/dL (0.0-1.0); Blood Urea Nitrogen 4 mg/dL (9-16); Calcium 9.4 mg/dL (8.4-10.2); Carbon Dioxide 27 mmol/L (22-29); Chloride 99 mmol/L (96-108); Creatinine Clr Calc Pharmacy 130.3; Estimated Glomerular Filt Rate > 60; Glucose Random 131 mg/dL (60-115); Lipase 21 U/L (8-78); Potassium 3.5 mmol/L (3.3-5.1); Sodium 141 mmol/L (135-145); Total Protein 7.4 g/dL (6.5-8.0)
[2023-01-22 07:31] VITALS: BP 172/107; PULSE 104; RESP 18; TEMP 36.6; O2SAT 97
[2023-01-22 07:32] LABS: HCG Quantitative < 2 mIU/mL
[2023-01-22] MEDS: Metoclopramide HCl 10 MG/2 ML VIAL IVPUSH ×2 (08:23→10:35)
[2023-01-22 10:35] VITALS: RESP 16
[2023-01-22] MEDS: Morphine Sulfate 2 MG/ML CARTRIDGE IVPUSH ×2 (10:35→12:22)
[2023-01-22 10:39] LABS: Appearance Urine Clear; Color Urine Yellow; Glucose Urine UA Negative (Negative); Leukocyte Esterase Urine Negative (Negative); Nitrite Urine Negative (Negative); Specific Gravity - Urine 1.015 (1.005-1.025); Urine Blood Negative (Negative); Urine Ketones Negative (Negative); Urine Protein Negative (Neg-Trace)
--- NOTE | 2023-01-22 11:17 | PC.NURSE ---
continued vomiting. unable to keep anything down. md aware.
[2023-01-22 11:27] VITALS: BP 170/110; PULSE 97; RESP 18; O2SAT 96
[2023-01-22 12:24] VITALS: PULSE 105; RESP 14; TEMP 36.6; O2SAT 100
--- NOTE | 2023-01-22 12:27 | PC.NURSE ---
pt reports she has not smoked marijuana since last visit to ed. drank etoh st day weekend and this past saturday.
--- NOTE | 2023-01-22 13:39 | PC.NURSE ---
po challenge given
[2023-01-22 14:17] VITALS: BP 154/99; PULSE 103; RESP 18; TEMP 36.8; O2SAT 98
== END 2023-01-22 14:22 | disposition home or self-care (01) ==
PROVIDERS: Emergency Provider Emergency Medicine; PCP Internal Medicine
DX: K52.9 Noninfective gastroenteritis and colitis, unspecified (principal); R11.2 Nausea with vomiting, unspecified; R10.13 Epigastric pain; K76.0 Fatty (change of) liver, not elsewhere classified; N20.0 Calculus of kidney; I10 Essential (primary) hypertension; G62.9 Polyneuropathy, unspecified; F12.90 Cannabis use, unspecified, uncomplicated; Z79.899 Other long term (current) drug therapy
CPT/HCPCS: 36415; 74176; 76705; 80048; 80076; 81003; 83690; 84702; 85025; 96361; 96365; 96375; 96376; 99285; J1885; J2270; J2405; J2550; J2765

== ENCOUNTER 2023-03-04 22:01 | Emergency (ER) | payer OTHER, SELFPAY ==
[2023-03-04 22:06] VITALS: BP 177/109; PULSE 109; RESP 18; TEMP 36.2; O2SAT 98; BMI 31.3
--- NOTE | 2023-03-04 22:17 | ED.GENADULT ---
HPI - General Adult General Chief complaint: Back Pain/Injury Stated complaint: back pain Related Data Home Medications Medication Instructions Recorded Confirmed alpha lipoic acid 600 mg capsule 600 mg PO DAILY 11/17/22 11/28/22 amlodipine 5 mg tablet 5 mg PO BEDTIME 11/17/22 11/28/22 cyanocobalamin (vitamin B-12) 1,000 mcg PO DAILY 11/17/22 11/28/22 1,000 mcg capsule duloxetine 60 mg capsule,delayed 60 mg PO DAILY 11/17/22 11/28/22 release gabapentin 300 mg capsule 900 mg PO TID 11/17/22 11/28/22 metoprolol succinate 25 mg 25 mg PO DAILY 11/17/22 11/28/22 tablet,extended release 24 hr cyanocobalamin (vitamin B-12) 1,000 mcg PO DAILY 01/11/23 1,000 mcg tablet folic acid 1 mg tablet 1 mg PO DAILY 01/11/23 Previous Rx's Medication Instructions Recorded omeprazole 20 mg capsule,delayed 20 mg PO BID #30 caps 11/17/22 release naproxen 500 mg tablet 500 mg PO BID PRN pain 7 days #14 11/28/22 tabs tamsulosin 0.4 mg capsule 0.4 mg PO BEDTIME 14 days #14 caps 11/28/22 tramadol 50 mg tablet 50 mg PO Q6H PRN pain (scale score 11/28/22 1-3) #8 tabs metoclopramide HCl 10 mg tablet 10 mg PO Q6H PRN nausea and 12/21/22 (Reglan) vomiting #20 tabs naproxen 500 mg tablet (Naprosyn) 500 mg PO BID #20 tabs 03/05/23 ondansetron 4 mg disintegrating 4 mg PO Q8H PRN nausea and 03/05/23 tablet vomiting 5 days #14 tabs Allergies Allergy/AdvReac Type Severity Reaction Status Date / Time peanut [PEANUT] Allergy Intermediate ITCHINESS Verified 01/11/23 10:47 PMFSH Past Medical History Medical History GERD (gastroesophageal reflux disease) Hypertension Mood disorder No known health problems Peripheral neuropathy Surgical History No history of previous surgery Social History Social History Household Members: Family Housing: Apartment Do you presently have visiting nurse or other home services: No Alcohol intake: current Alcohol intake frequency: a few times a month Alcohol type: beer Patient Tobacco Use Status: Never used Tobacco Smoked in Last 30 Days: No Use of substances other than those prescribed or required for medical reasons: Yes Substance Use Type: Marijuana Substance Use Frequency: Occasionally Advance Directives: Yes Advance Directives Information Provided: Yes Advance Directives on File: No service: No Physical Exam ED Vital Signs: Vital Signs - 24 hr 03/04/23 22:06 Temperature 97.2 F Pulse Rate 109 H Respiratory Rate 18 Blood Pressure 177/109 H Pulse Oximetry 98 Oxygen Delivery Method Room Air BMI result Body Mass Index 31.3 Course Course Course Narrative: 32-year-old female presents for evaluation of lower back pain. Denies any specific injury. Her pain has been present for the last week but she reports that when she was trying to stand up today she felt increasing pain. No neuro deficits, no warning signs for cauda equina syndrome. Discharge Plan Discharge Clinical Impression: Back pain Patient Disposition: Elopement Prescriptions: No Action tramadol 50 mg tablet 50 mg PO Q6H PRN (Reason: pain (scale score 1-3)) Qty: 8 0RF tamsulosin 0.4 mg capsule 0.4 mg PO BEDTIME 14 Days Qty: 14 0RF naproxen 500 mg tablet 500 mg PO BID PRN (Reason: pain) 7 Days Qty: 14 0RF metoclopramide HCl [Reglan] 10 mg tablet 10 mg PO Q6H PRN (Reason: nausea and vomiting) Qty: 20 0RF amlodipine 5 mg tablet 5 mg PO BEDTIME gabapentin 300 mg capsule 900 mg PO TID duloxetine 60 mg capsule,delayed release(DR/EC) 60 mg PO DAILY cyanocobalamin (vitamin B-12) 1,000 mcg capsule 1,000 mcg PO DAILY metoprolol succinate 25 mg tablet extended release 24 hr 25 mg PO DAILY alpha lipoic acid 600 mg capsule 600 mg PO DAILY omeprazole 20 mg capsule,delayed release(DR/EC) 20 mg PO BID Qty: 30 0RF naproxen [Naprosyn] 500 mg tablet 500 mg PO BID Qty: 20 0RF ondansetron 4 mg tablet,disintegrating 4 mg PO Q8H PRN (Reason: nausea and vomiting) 5 Days Qty: 14 0RF cyanocobalamin (vitamin B-12) 1,000 mcg tablet 1,000 mcg PO DAILY folic acid 1 mg tablet 1 mg PO DAILY Interventions: ED Discharge Assessment Last Done: 03/05/23 01:07 Discharge Date/Time: 03/05/23 01:32
== END 2023-03-05 01:32 | disposition left against medical advice (07) ==
PROVIDERS: Emergency Provider Emergency Medicine; PCP Internal Medicine
DX: M54.50 Low back pain, unspecified (principal); Z79.899 Other long term (current) drug therapy
CPT/HCPCS: 99282

== ENCOUNTER 2023-03-05 06:36 | Emergency (ER) | payer OTHER, SELFPAY ==
[2023-03-05 06:38] VITALS: BP 175/114; PULSE 111; RESP 18; TEMP 36; O2SAT 98; BMI 32.4
--- NOTE | 2023-03-05 07:22 | ED.GENADULT ---
HPI - General Adult General Chief complaint: Back Pain/Injury Stated complaint: Lower right side pain Time Seen by Provider: 03/05/23 07:21 Source: patient Mode of arrival: ambulatory Limitations: no limitations History of Present Illness HPI narrative: right flank pain with nausea and vomiting. She is vomiting a lot. No fever, no dysuria, no hematuria. No history of gallstones. Patient has fatty liver and neuropathy. Onset (ago): day(s) Location: back Radiation: abdomen Severity: mild Pain Consistency: intermittent Related Data Home Medications Medication Instructions Recorded Confirmed alpha lipoic acid 600 mg capsule 600 mg PO DAILY 11/17/22 11/28/22 amlodipine 5 mg tablet 5 mg PO BEDTIME 11/17/22 11/28/22 cyanocobalamin (vitamin B-12) 1,000 mcg PO DAILY 11/17/22 11/28/22 1,000 mcg capsule duloxetine 60 mg capsule,delayed 60 mg PO DAILY 11/17/22 11/28/22 release gabapentin 300 mg capsule 900 mg PO TID 11/17/22 11/28/22 metoprolol succinate 25 mg 25 mg PO DAILY 11/17/22 11/28/22 tablet,extended release 24 hr cyanocobalamin (vitamin B-12) 1,000 mcg PO DAILY 01/11/23 1,000 mcg tablet folic acid 1 mg tablet 1 mg PO DAILY 01/11/23 Previous Rx's Medication Instructions Recorded omeprazole 20 mg capsule,delayed 20 mg PO BID #30 caps 11/17/22 release naproxen 500 mg tablet 500 mg PO BID PRN pain 7 days #14 11/28/22 tabs tamsulosin 0.4 mg capsule 0.4 mg PO BEDTIME 14 days #14 caps 11/28/22 tramadol 50 mg tablet 50 mg PO Q6H PRN pain (scale score 11/28/22 1-3) #8 tabs metoclopramide HCl 10 mg tablet 10 mg PO Q6H PRN nausea and 12/21/22 (Reglan) vomiting #20 tabs naproxen 500 mg tablet (Naprosyn) 500 mg PO BID #20 tabs 03/05/23 ondansetron 4 mg disintegrating 4 mg PO Q8H PRN nausea and 03/05/23 tablet vomiting 5 days #14 tabs Allergies Allergy/AdvReac Type Severity Reaction Status Date / Time peanut [PEANUT] Allergy Intermediate ITCHINESS Verified 01/11/23 10:47 Review of Systems Review of Systems: Yes all other systems are reviewed and are negative Musculoskeletal: Musculoskeletal: Reports back pain PMFSH Past Medical History Medical History GERD (gastroesophageal reflux disease) Hypertension Mood disorder No known health problems Peripheral neuropathy Surgical History No history of previous surgery Social History Social History Household Members: Family Housing: Apartment Do you presently have visiting nurse or other home services: No Alcohol intake: current Alcohol intake frequency: a few times a month Alcohol type: beer Patient Tobacco Use Status: Never used Tobacco Smoked in Last 30 Days: No Use of substances other than those prescribed or required for medical reasons: Yes Substance Use Type: Marijuana Substance Use Frequency: Occasionally Advance Directives: Yes Advance Directives Information Provided: Yes Advance Directives on File: No service: No Physical Exam ED Vital Signs: Vital Signs - 24 hr 03/05/23 06:38 03/05/23 07:33 03/05/23 09:19 Temperature 96.8 F 97.6 F Pulse Rate 111 H 137 H 101 H Respiratory Rate 18 20 18 Blood Pressure 175/114 H 165/109 H 167/101 H Pulse Oximetry 98 97 95 Oxygen Delivery Method Room Air Room Air Room Air 03/05/23 09:29 Temperature 98.4 F Pulse Rate 95 Respiratory Rate 14 Blood Pressure 129/75 Pulse Oximetry 98 Oxygen Delivery Method Room Air BMI result Body Mass Index 32.4 Const Other: obese female looking older than stated age Orientation/consciousness: oriented to person and patient oriented x3 Limitations: no limitations HENMT Head: Yes normal to inspection Ears: external ears normal General nose exam: Normal external nose present Mouth: Normal oral and palatal mucosa present and oropharynx normal Throat: Yes posterior oropharynx normal Eyes General: appearance normal, both eyes and all related structures Neck Neck: Yes normal visual inspection Chest Chest palpation & inspection: normal inspection of the chest Resp Auscultation: clear to auscultation bilaterally Cardio Jugular venous distension: no JVD Rate: regular rate Rhythm: regular rhythm Heart sounds: S1 normal heart sound present and S2 normal heart sound present GI Other: right upper quadrant pain and tenderness Auscultation: normal bowel sounds General: Yes no CVA tenderness Back/Spine/Pelvis Back: no CVA tenderness Skin General skin exam: no rashes or lesions noted Neuro General: oriented to person and patient oriented x3 Cranial nerves: Yes CN's II-XII intact bilaterally Motor exam (neuro): 5/5 motor strength present throughout Extrem General: Yes normal to inspection Psych Appearance: grossly normal Course Reevaluation(s) Reevaluation #1: review of old charts and imaging shows fatty infiltration of liver with severe LFT abnormality. A Ct showed a nonobstructing stone in the right kidney. My impression is fatty liver disease. Will dc on zofran and Nsaids for her pain Time: 13:28 Medications Administered Discontinued Medications Generic Name Dose Route Start Last Admin Trade Name Freq PRN Reason Stop Dose Admin Sodium Chloride 500 mls @ 250 mls/hr 03/05/23 07:30 03/05/23 09:31 Ns IVCONT 03/05/23 09:29 Infused .Q2H ISAAK Infusion Ketorolac Tromethamine 30 mg 03/05/23 07:27 03/05/23 07:57 Ketorolac Tromethamine 30 Mg/Ml Vial IVPUSH 03/05/23 07:28 30 mg ONCE ONE Administration Lorazepam 1 mg 03/05/23 08:06 03/05/23 08:12 Lorazepam 2 Mg/Ml Vial IVPUSH 03/05/23 08:07 1 mg ONCE ONE Administration Ondansetron HCl 4 mg 03/05/23 07:27 03/05/23 07:57 Ondansetron Hcl 4 Mg/2 Ml Vial IVPUSH 03/05/23 07:28 4 mg ONCE ONE Administration Medical Decision Making Differential Diagnosis Differential Diagnoses: The differential diagnosis associated with the presentation includes (gastritis, hepatitis, biliary colic, renal colic, UTI, pyelonephritis) Admission/Observation Consideration of admission/observation: Escalation of care including admission/observation considered (in this patient with severe RUQ pain admission was considered) Lab Data MDM Lab Attestation statement: I reviewed the patient's lab results. 03/05/23 07:53 03/05/23 07:53 Labs: Lab Results 03/05/23 03/05/23 03/05/23 Range/Units 07:53 07:53 12:55 WBC 14.8 H (4.8-10.8) X10*3/uL RBC 4.27 (4.20-5.50) X10*6/uL Hgb 15.1 (12.0-16.0) g/dl Hct 43.0 (37.0-47.0) % MCV 100.7 H (80.0-98.0) fL MCH 35.4 H (27.0-33.0) pg MCHC 35.1 H (31.0-35.0) g/dl RDW 13.1 (11.0-16.0) % Plt Count 363 D (160-400) X10*3/uL MPV 9.8 (9.4-12.3) fL Immature Gran % (Auto) 0.9 H (0.0-0.4) % Neut % (Auto) 85.6 H (45-73) % Lymph % (Auto) 9.5 L (20-40) % [facility] % (Auto) 3.5 (2-11) % Eos % (Auto) 0.1 (0-4) % Baso % (Auto) 0.4 (0-2) % Lymph # (Auto) 1.4 (1.2-4.9) X10*3/uL [facility] # (Auto) 0.5 (0.1-1.2) X10*3/uL Eos # (Auto) 0.0 (0.0-0.4) X10*3/uL Baso # (Auto) 0.1 (0.0-0.2) X10*3/uL Abs Immat Gran (auto) 0.13 H (0.00-0.03) X10*3/uL Absolute Neuts (auto) 12.6 H (2.0-8.3) x10*3/uL Absolute Nucleated RBC 0.000 (0.0-0.012) X10*3/uL Nucleated RBC % (auto) 0.0 (0.0-0.2) /100WBC Sodium 143 (135-145) mmol/L Potassium 3.7 (3.3-5.1) mmol/L Chloride 98 (96-108) mmol/L Carbon Dioxide 27 (22-29) mmol/L Anion Gap 22 H (12-20) BUN 6 L (9-16) mg/dL Creatinine 0.71 (0.5-1.4) mg/dL Estim Creat Clear Calc 131.3 Estimated GFR > 60 Random Glucose 176 H (60-115) mg/dL Calcium 9.9 (8.4-10.2) mg/dL Total Bilirubin 1.5 H (0.0-1.0) mg/dL AST 303 H (5-31) U/L ALT 182 H (0-31) U/L Alkaline Phosphatase 164 H (39-117) U/L Total Protein 7.8 (6.5-8.0) g/dL Albumin 4.4 (3.5-5.0) g/dL Urine Color Dark Yellow Urine Appearance Cloudy Urine pH 7.0 (5.0-9.0) Ur Specific [place] 1.020 (1.005-1.025) Urine Protein 30 (1+) H (Neg-Trace) mg/dL Urine Glucose (UA) Negative (Negative) mg/dL Urine Ketones Trace (Negative) mg/dL Urine Blood Trace H (Negative) Urine Nitrite Negative (Negative) Ur Leukocyte Esterase Trace H (Negative) Urine RBC 6-10 H (0-2) /HPF Urine WBC 0-5 (0-5) /HPF Ur Squamous Epith Cells 11-20 (0-2) /HPF Urine Bacteria 1+ (None Seen) Hyaline Casts 0-2 (0-2) /LPF Urine Test (NEGATIVE) 03/05/23 Range/Units 12:55 WBC (4.8-10.8) X10*3/uL RBC (4.20-5.50) X10*6/uL Hgb (12.0-16.0) g/dl Hct (37.0-47.0) % MCV (80.0-98.0) fL MCH (27.0-33.0) pg MCHC (31.0-35.0) g/dl RDW (11.0-16.0) % Plt Count (160-400) X10*3/uL MPV (9.4-12.3) fL Immature Gran % (Auto) (0.0-0.4) % Neut % (Auto) (45-73) % Lymph % (Auto) (20-40) % [facility] [place] [facility] % (Auto) (2-11) % Eos % (Auto) (0-4) % Baso % (Auto) (0-2) % Lymph # (Auto) (1.2-4.9) X10*3/uL [facility] # (Auto) (0.1-1.2) X10*3/uL Eos # (Auto) (0.0-0.4) X10*3/uL Baso # (Auto) (0.0-0.2) X10*3/uL Abs Immat Gran (auto) (0.00-0.03) X10*3/uL Absolute Neuts (auto) (2.0-8.3) x10*3/uL Absolute Nucleated RBC (0.0-0.012) X10*3/uL Nucleated RBC % (auto) (0.0-0.2) /100WBC Sodium (135-145) mmol/L Potassium (3.3-5.1) mmol/L Chloride (96-108) mmol/L Carbon Dioxide (22-29) mmol/L Anion Gap (12-20) BUN (9-16) mg/dL Creatinine (0.5-1.4) mg/dL Estim Creat Clear Calc Estimated GFR Random Glucose (60-115) mg/dL Calcium (8.4-10.2) mg/dL Total Bilirubin (0.0-1.0) mg/dL AST (5-31) U/L ALT (0-31) U/L Alkaline Phosphatase (39-117) U/L Total Protein (6.5-8.0) g/dL Albumin (3.5-5.0) g/dL Urine Color Urine Appearance Urine pH (5.0-9.0) Ur Specific [place] (1.005-1.025) Urine Protein (Neg-Trace) mg/dL Urine Glucose (UA) (Negative) mg/dL Urine Ketones (Negative) mg/dL Urine Blood (Negative) Urine Nitrite (Negative) Ur Leukocyte Esterase (Negative) Urine RBC (0-2) /HPF Urine WBC (0-5) /HPF Ur Squamous Epith Cells (0-2) /HPF Urine Bacteria (None Seen) Hyaline Casts (0-2) /LPF Urine Test NEGATIVE (NEGATIVE) External Record Review External record reviewed: Outpatient record Tests considered The following testing was considered but not selected: I considered obtaining abdominal US and CT but patient had both those studies recently Chronic Conditions Patient?s care impacted by: Other (fatty liver disease) Discharge Plan Discharge Clinical Impression: Fatty liver disease, nonalcoholic Patient Disposition: Home, Self-Care Instructions: Liver Disease Diet (DC), Non-Alcoholic Fatty Liver Disease (ED) Prescriptions: New naproxen [Naprosyn] 500 mg tablet 500 mg PO BID Qty: 20 0RF ondansetron 4 mg tablet,disintegrating 4 mg PO Q8H PRN (Reason: nausea and vomiting) 5 Days Qty: 14 0RF No Action tramadol 50 mg tablet 50 mg PO Q6H PRN (Reason: pain (scale score 1-3)) Qty: 8 0RF tamsulosin 0.4 mg capsule 0.4 mg PO BEDTIME 14 Days Qty: 14 0RF naproxen 500 mg tablet 500 mg PO BID PRN (Reason: pain) 7 Days Qty: 14 0RF metoclopramide HCl [Reglan] 10 mg tablet 10 mg PO Q6H PRN (Reason: nausea and vomiting) Qty: 20 0RF amlodipine 5 mg tablet 5 mg PO BEDTIME gabapentin 300 mg capsule 900 mg PO TID duloxetine 60 mg capsule,delayed release(DR/EC) 60 mg PO DAILY cyanocobalamin (vitamin B-12) 1,000 mcg capsule 1,000 mcg PO DAILY metoprolol succinate 25 mg tablet extended release 24 hr 25 mg PO DAILY alpha lipoic acid 600 mg capsule 600 mg PO DAILY omeprazole 20 mg capsule,delayed release(DR/EC) 20 mg PO BID Qty: 30 0RF cyanocobalamin (vitamin B-12) 1,000 mcg tablet 1,000 mcg PO DAILY folic acid 1 mg tablet 1 mg PO DAILY Referrals: Magali Calabrese MD [Primary Care Provider] - 5 days
[2023-03-05 07:33] VITALS: BP 165/109; PULSE 137; RESP 20; TEMP 36.4; O2SAT 97
[2023-03-05] MEDS: 0.9 % Sodium Chloride 500 ML 250 ML IVCONT (07:47)
[2023-03-05] MEDS: Ketorolac Tromethamine 30 MG/ML VIAL IVPUSH (07:57)
[2023-03-05] MEDS: ondansetron HCL 4 MG/2 ML VIAL IVPUSH (07:57)
[2023-03-05 07:58] LABS: MANUAL DIFF FLAG NO
[2023-03-05 08:04] LABS: Basophils Absolute Auto 0.1 X10*3/uL (0.0-0.2); Basophils Percent Auto 0.4 % (0-2); Eosinophils Percent Auto 0.1 % (0-4); Hemoglobin 15.1 g/dl (12.0-16.0); Imm Gran Abs Auto 0.13 X10*3/uL (0.00-0.03); Imm Gran Pct Auto 0.9 % (0.0-0.4); Lymphocytes Absolute Auto 1.4 X10*3/uL (1.2-4.9); Lymphocytes Percent Auto 9.5 % (20-40); Mean Corpuscular HGB Conc 35.1 g/dl (31.0-35.0); Mean Corpuscular Hemoglobin 35.4 pg (27.0-33.0); Mean Corpuscular Volume 100.7 fL (80.0-98.0); Mean Platelet Volume 9.8 fL (9.4-12.3); Monocytes Absolute Auto 0.5 X10*3/uL (0.1-1.2); Monocytes Percent Auto 3.5 % (2-11); Neutrophils Absolute Auto 12.6 x10*3/uL (2.0-8.3); Neutrophils Percent Auto 85.6 % (45-73); Platelet Count 363 X10*3/uL (160-400); Red Blood Count 4.27 X10*6/uL (4.20-5.50); Red Cell Distribution Width 13.1 % (11.0-16.0); White Blood Count 14.8 X10*3/uL (4.8-10.8)
[2023-03-05] MEDS: LORazepam 2 MG/ML VIAL 1 MG IVPUSH (08:12)
[2023-03-05 09:19] VITALS: BP 167/101; PULSE 101; RESP 18; O2SAT 95
[2023-03-05 09:29] VITALS: BP 129/75; PULSE 95; RESP 14; TEMP 36.9; O2SAT 98
[2023-03-05 11:51] LABS: Alanine Aminotransferase 182 U/L (0-31); Albumin Level 4.4 g/dL (3.5-5.0); Alkaline Phosphatase 164 U/L (39-117); Anion Gap 22 (12-20); Aspartate Amino Transferase 303 U/L (5-31); Bilirubin Total 1.5 mg/dL (0.0-1.0); Blood Urea Nitrogen 6 mg/dL (9-16); Calcium 9.9 mg/dL (8.4-10.2); Carbon Dioxide 27 mmol/L (22-29); Chloride 98 mmol/L (96-108); Creatinine Clr Calc Pharmacy 131.3; Estimated Glomerular Filt Rate > 60; Glucose Random 176 mg/dL (60-115); Potassium 3.7 mmol/L (3.3-5.1); Sodium 143 mmol/L (135-145); Total Protein 7.8 g/dL (6.5-8.0)
[2023-03-05 13:04] LABS: Appearance Urine Cloudy; Color Urine Dark Yellow; Glucose Urine UA Negative (Negative); Leukocyte Esterase Urine Trace (Negative); Nitrite Urine Negative (Negative); UMIC TRIGGER UACC YES; Urine Blood Trace (Negative); Urine Ketones Trace mg/dL (Negative); Urine Protein 30 (1+) mg/dL (Neg-Trace)
[2023-03-05 13:06] LABS: Bacteria Urine 1+ (None Seen); Hyaline Casts Urine 0-2 /LPF (0-2); UPreg QC Valid YES; Urine Pregnancy NEGATIVE (NEGATIVE); WBC Urine 0-5 /HPF (0-5)
[2023-03-05 13:24] VITALS: BP 148/92; PULSE 93; RESP 18; O2SAT 100
--- NOTE | 2023-03-05 14:18 | PC.NURSE ---
Patient reports feeling much better, reviewed discharge education.
== END 2023-03-05 14:18 | disposition home or self-care (01) ==
PROVIDERS: Emergency Provider Emergency Medicine; PCP Internal Medicine
DX: K76.0 Fatty (change of) liver, not elsewhere classified (principal); I10 Essential (primary) hypertension; F12.90 Cannabis use, unspecified, uncomplicated; Z79.899 Other long term (current) drug therapy
CPT/HCPCS: 36415; 80053; 81001; 81003; 81025; 85025; 96361; 96374; 96375; 99284; 99285; J1885; J2060; J2405

== ENCOUNTER 2024-12-12 20:33 | Observation (INO) | payer OTHER, SELFPAY ==
--- NOTE | ~2024-12-12 | CT_ITS ---
CLINICAL HISTORY: Stroke Protocol, slurred speech CT angiography head and neck with contrast. 3D Postprocessing. Comparison: CT/SR - CT HEAD FOR STROKE - 12/12/24 20:50 EST Findings: Aortic arch and cervical great vessels are patent. Bilateral internal carotid arteries and vertebral arteries are patent. There is an irregular slightly beaded appearance of both middle cerebral and posterior cerebral arteries raising concern for underlying vasculitis. No stenosis, large vessel occlusion or aneurysm seen. No abnormal intracranial enhancement. The visualized thyroid gland is unremarkable. No cervical mass or fluid collection. Lung apices clear. No acute fracture. IMPRESSION: 1. Patent head and neck CTA. No large vessel occlusion or stenosis. 2. Slightly beaded appearance of both of the middle cerebral and posterior cerebral arteries raises concern for underlying vasculitis. This document has been electronically signed by: Jose Valenzuela MD on 12/12/2024 21:35:49
--- NOTE | ~2024-12-12 | MR_ITS ---
CLINICAL HISTORY: numbness, rule out demyelenating diseasemotion on images, best obtainable, blades, repeats and reminders MR of the brain without contrast Comparison: CT/SR - CT ANGIO HEAD NECK STROKE - 12/12/24 20:[address] - CT ANGIO HEAD NECK STROKE - 12/12/24 20:[address]/SR - CT HEAD FOR STROKE - 12/12/24 20:[address]/[place]/SR - BRAIN WO IV CONTRAST [id number] - 01/31/19 10:57 EDT Findings: No acute infarction, hemorrhage, mass-effect or herniation. No hydrocephalus. Signal intensity is within normal limits for patient's age. No extra-axial fluid collection or mass. Unremarkable sella. Intact flow voids. Normal orbits. Clear paranasal sinuses and mastoid air cells. Unremarkable osseous structures. Impression: Normal brain MR. No evidence of a demyelinating process. This document has been electronically signed by: Sharonda Wilson MD on 12/14/2024 15:50:14
--- NOTE | ~2024-12-12 | CT_ITS ---
CLINICAL HISTORY: Stroke Protocol, slurred speech CT head without contrast Comparison: CT/[place]/SR - BRAIN WO IV CONTRAST [id number] - 01/31/19 10:57 EDT Findings: No intra-axial mass, midline shift, hydrocephalus, or acute hemorrhage. No significant atrophy-like change or white matter disease. There is no sinus or mastoid fluid. The orbits are within normal limits. There is no acute fracture. IMPRESSION: 1. No acute intracranial findings. This document has been electronically signed by: Jose Valenzuela MD on 12/12/2024 21:07:27
--- NOTE | ~2024-12-12 | XR_ITS ---
CLINICAL HISTORY: Stroke Protocol , HEAVINESS, NUMBNESS, SLURRED SPEECH 1 view chest x-ray. Comparison: CT/SR - CT CHEST WO IV CON - 11/16/22 23:18 EST Findings: No consolidation, pneumothorax, or effusion. Heart size normal. Impression: 1. No acute cardiopulmonary process. No focal pulmonary consolidation. This document has been electronically signed by: Pola Andrade MD on 12/12/2024 21:41:34
[2024-12-12 20:43] VITALS: BP 133/78; PULSE 76; RESP 20; TEMP 36.5; O2SAT 100; BMI 28.1
--- NOTE | 2024-12-12 20:43 | ED.GENADULT ---
HPI - General Adult General Chief complaint: Stroke Stated complaint: body numbness?,sob Time Seen by Provider: 12/12/24 20:51 Source: patient and family (Mother) Mode of arrival: ambulatory Limitations: no limitations History of Present Illness ED Provider: Dr. Yony Goodman HPI narrative: 34-year-old female with a history of hypertension, ADHD, peripheral neuropathy who presents emergency department for evaluation whole-body numbness and weakness. Patient states that she has a diagnosis of peripheral neuropathy from an unknown etiology. She states she was 1st diagnosed 3 years ago and since that time she gets numbness in her feet and ankles and she was had at least 3 episodes where she was had numbness in her abdomen and chest. Patient states that she has been worked up by a neurologist at [facility] and no clear cause for her numbness was found. She states that she went to [place] on 11/29/2024 and prior to going she started developed numbness in her abdomen and chest. Patient returned from [place] on Saturday12/08/2023 (5 days prior). She states that since yesterday she has been feeling numbness traveling up her body involving her legs, abdomen and chest. She states that since yesterday, the numbness spread to her face and lips-which is a new finding for her. The patient's mother noted that the patient was having difficulty with talking therefore the patient was brought to emergency department for evaluation. The patient denied fever or chills. She states with the last 24 hours she has had rhinorrhea and a nonproductive cough. She denied chest pain. She states that she feels short of breath but denied dyspnea on exertion. She was had no nausea vomiting or diarrhea. Patient states that she feels like her body is getting weaker. She has been able to walk but she states that her gait is not normal for her. Patient was seen by the triage provider and made a code stroke. The patient does take B12 and folate and has been compliant with these medications. She does not take thiamine on a regular basis. She states that when she was in [place] she did drink a little more than usual. Related Data Home Medications ?Medication ?Instructions ?Recorded ?Confirmed alpha lipoic acid 600 mg capsule 600 mg PO DAILY 11/17/22 12/13/24 duloxetine 60 mg capsule,delayed 60 mg PO DAILY 11/17/22 11/28/22 release metoprolol succinate 25 mg 25 mg PO DAILY 11/17/22 11/28/22 tablet,extended release 24 hr cyanocobalamin (vitamin B-12) 1,000 mcg PO DAILY 01/11/23 12/13/24 1,000 mcg tablet folic acid 1 mg tablet 1 mg PO DAILY 01/11/23 12/13/24 dextroamphetamine-amphetamine 20 1 tab PO DAILY 12/13/24 12/13/24 mg tablet Allergies Allergy/AdvReac Type Severity Reaction Status Date / Time peanut [PEANUT] Allergy Intermediate ITCHINESS Verified 12/12/24 20:54 Review of Systems Review of Systems: Yes all other systems are reviewed and are negative [facility] Past Medical History Medical History (Updated 12/14/24 @ 16:57 by Melinda Paniagua) GERD (gastroesophageal reflux disease) Peripheral neuropathy Mood disorder Hypertension Surgical History No history of previous surgery Social History Social History Household Members: Family Housing: Apartment Do you presently have visiting nurse or other home services: No Unable to assess alcohol history related to: Unknown Alcohol intake: current Alcohol intake frequency: a few times a month Alcohol type: beer Patient Tobacco Use Status: Never used Tobacco Substance Use Type: Marijuana service: No Physical Exam ED Vital Signs: Vital Signs - 24 hr 12/12/24 20:43 Temperature 97.7 F Pulse Rate 76 Respiratory Rate 20 Blood Pressure 133/78 Pulse Oximetry 100 Oxygen Delivery Method Room Air BMI result Body Mass Index 28.1 Vital signs revealed a slight elevation in her blood pressure of 133/78 otherwise unremarkable Exam: General: Awake, alert in no distress Head: Normocephalic, atraumatic EENT: PERRL, Lids normal, sclera normal, conjunctiva normal, nose normal , ears normal, throat without erythema or exudates Neck: Supple, no adenopathy Lung: breath sounds symmetric, no wheezing, rales or rhonchi Chest: symmetric movement, nontender Heart: regular rate and rhythm, normal S1, S2 no murmurs or rubs Abdomen: soft, non-tender, nondistended, normal bowel sounds Back: no vertebral tenderness, no CVAT Extremities: no deformities Neuro: General: Awake, alert, oriented, slightly dysarthric speech which is comprehensible, no word aphasia Cranial nerves: Cranial nerves 2-12 are intact Strength: Patient was able to hold her extremities up against gravity but does have symmetric weakness in both her upper and lower extremities Sensory: Patient has diminished light touch over her entire body. Patient has diminished noxious touch to her face, neck, mid chest her abdomen ankles and feet. The diminished nontoxic touch spares the upper chest and thighs bilaterally. Psych: Pleasant, cooperative NIH Stroke Scale Level of Consciousness: Alert Level of Consciousness Questions: Answers both questions correctly Level of Consciousness Commands: Performs both tasks correctly Best Gaze: Normal Visual: No visual loss Facial Palsy: Normal Motor Arm (Right): No drift Motor Arm (Left): No drift Motor Leg (Right): No drift Motor Leg (Left): No drift Limb Ataxia: Absent Sensory: Mild to moderate sensory loss Best Language: No aphasia Dysarthia: Mild to moderate dysarthria Extinction and Inattention: No abnormality Score: 2 Course Course Course Narrative: RME performed by Lizett Corbett PA-C. Patient is a 34 year old assigned female at presenting to the emergency department with numbness. Patient states that her entire body is numb. Patient states that her everything feels heavy. Patient states that her mother noticed she had increasing slurred speech at 7pm. Detailed physical exam and review of systems are deferred to the inspector floor. Code stroke. 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 Medications Administered Discontinued Medications Generic Name Dose Route Start Last Admin Trade Name Adanq PRN Reason Stop Dose Admin Alprazolam 0.25 mg 12/13/24 10:24 12/13/24 10:44 Alprazolam 0.25 Mg Tablet PO 12/13/24 10:25 0.25 mg ONCE ONE Administration Amphetamine/Dextroamphetamine 20 mg 12/14/24 09:00 12/14/24 09:19 Amphetamine Mixed Salts 20 Mg Tablet PO 20 mg DAILY ISAAK Administration Cyanocobalamin 1,000 mcg 12/13/24 01:48 12/13/24 02:09 Cyanocobalamin (Vitamin B-12) 1,000 Mcg/Ml Vial IM 12/13/24 01:49 1,000 mcg ONCE ONE Administration Cyanocobalamin 1,000 mcg 12/14/24 09:00 12/14/24 09:19 Cyanocobalamin (Vitamin B-12) 1,000 Mcg Tablet PO 1,000 mcg DAILY ISAAK Administration Duloxetine HCl 60 mg 12/13/24 21:27 12/13/24 22:18 Duloxetine Hcl 60 Mg Capsule.Dr PO 12/13/24 21:28 60 mg ONCE ONE Administration Enoxaparin Sodium 40 mg 12/13/24 09:30 12/14/24 09:20 Enoxaparin Sodium 40 Mg/0.4 Ml Syringe SUBCUT 40 mg Q24H ISAAK Administration Folic Acid 1 mg 12/14/24 09:00 12/14/24 09:19 Folic Acid 1 Mg Tablet PO 1 mg DAILY ISAAK Administration Thiamine HCl 500 mg/ Sodium 105 mls @ 210 mls/hr 12/13/24 01:48 12/13/24 03:10 Chloride IV 12/13/24 02:17 Infused ONCE ONE Infusion Magnesium Sulfate 2 gm in 50 mls @ 25 mls/hr 12/13/24 08:45 12/13/24 15:02 Magnesium Sulfate/H2o IV 12/13/24 10:44 Infused ONCE ONE Infusion Iohexol 100 ml 12/12/24 21:11 12/12/24 21:11 Iohexol 350 Mg/Ml 100 Ml Infus..Btl IV 12/12/24 21:12 70 ml ONCE ONE Administration Lidocaine HCl 5 ml 12/12/24 22:36 12/13/24 00:20 Lidocaine Hcl 1 % Mpf 5 Ml Vial INFILTRATI 12/12/24 22:37 5 ml ONCE STA Administration Lorazepam 1 mg 12/12/24 22:36 12/12/24 22:55 Lorazepam 2 Mg/Ml Vial IVPUSH 12/12/24 22:37 1 mg STAT STA Administration Lorazepam 1 mg 12/13/24 20:23 12/13/24 20:37 Lorazepam 1 Mg Tablet PO 12/13/24 20:24 1 mg ONCE ONE Administration Lorazepam 1 mg 12/14/24 13:18 12/14/24 14:25 Lorazepam 2 Mg/Ml Vial IVPUSH 12/14/24 13:19 1 mg ONCE ONE Administration Melatonin 6 mg 12/13/24 04:26 12/13/24 22:19 Melatonin 3 Mg Tablet PO 6 mg BEDTIME PRN Administration Insomnia Melatonin 3 mg 12/13/24 21:27 12/13/24 22:19 Melatonin 3 Mg Tablet PO 12/13/24 21:28 3 mg ONCE ONE Administration Sodium Chloride 3 ml 12/13/24 08:00 12/14/24 09:20 0.9 % Sodium Chloride Flush 3 Ml Syringe IVFLUSH 3 ml QSHIFT [facility] Administration Medical Decision Making Medical Decision Making [facility] Narrative: 34-year-old female with a history of hypertension, ADHD, peripheral neuropathy who presents emergency department for evaluation whole-body numbness and weakness. Patient states that she has a diagnosis of peripheral neuropathy from an unknown etiology. She states she was 1st diagnosed 3 years ago and since that time she gets numbness in her feet and ankles and she was had at least 3 episodes where she was had numbness in her abdomen and chest. Patient states that she has been worked up by a neurologist at [facility] and no clear cause for her numbness was found. She states that she went to [place] on 11/29/2024 and prior to going on this trip, she started developed numbness in her abdomen and chest. Patient returned from [place] on Saturday12/08/2023 (5 days prior). She states that since yesterday she has been feeling numbness traveling up her body , involving her legs, abdomen and chest. She states that since yesterday, the numbness spread to her face and lips-which is a new finding for her. The patient's mother noted that the patient was having difficulty with talking therefore the patient was brought to emergency department for evaluation. Differential diagnosis: ?Includes but is not limited to Guillain-Simpson syndrome, transverse myelitis, stroke, intracranial bleed, vasculitis, electrolyte abnormalities, vitamin deficiencies (B12, thiamine, folate), electrolyte abnormalities Course: 01:23 My interpretation patient's laboratory evaluation is as follows: Macrocytic anemia with an H&H of 12.3 and 35.8 with an MCV of 106.2. Low potassium 3.2. Troponin was below detectable limits. ESR and CRP were only slightly elevated at 23 and 0.60. CSF protein and glucose were normal. Liver panel, magnesium, folate, B12, CK are pending. CT scan of the head without contrast was unremarkable. CT angiogram head and neck did not reveal any retrievable clots, there was a concern of possible vasculitis of the middle cerebral arteries. At this time, I do not have a clear etiology for the patient's pain, I do not think that she has a cerebral vasculitis. Patient may have thiamine deficiency given her macrocytic anemia therefore I ordered thiamine 500 mg IV and B12 1000 mcg IM. I did discuss the patient's presentation over tiger text with the covering hospitalist, Dr. Ovalle Lab Data 12/14/24 05:20 12/14/24 05:20 Labs: Lab Results 12/12/24 12/12/24 12/12/24 Range/Units 21:17 21:18 22:10 WBC 6.6 (4.8-10.8) X10*3/uL RBC 3.37 L D (4.20-5.50) X10*6/uL Hgb 12.3 (12.0-16.0) g/dl Hct 35.8 L (37.0-47.0) % MCV 106.2 H (80.0-98.0) fL MCH 36.5 H (27.0-33.0) pg MCHC 34.4 (31.0-35.0) g/dl RDW 17.0 H (11.0-16.0) % Plt Count 343 (160-400) X10*3/uL MPV 10.3 (9.4-12.3) fL Immature Gran % (Auto) 0.3 (0.0-0.4) % Neut % (Auto) 77.3 H (45-73) % Lymph % (Auto) 12.8 L (20-40) % Geary % (Auto) 7.2 (2-11) % Eos % (Auto) 0.6 (0-4) % Baso % (Auto) 1.8 (0-2) % Lymph # (Auto) 0.8 L (1.2-4.9) X10*3/uL Geary # (Auto) 0.5 (0.1-1.2) X10*3/uL Eos # (Auto) 0.0 (0.0-0.4) X10*3/uL Baso # (Auto) 0.1 (0.0-0.2) X10*3/uL Abs Immat Gran (auto) 0.02 (0.00-0.03) X10*3/uL Absolute Neuts (auto) 5.1 (2.0-8.3) x10*3/uL Absolute Nucleated RBC 0.000 (0.0-0.012) X10*3/uL Nucleated RBC % (auto) 0.0 (0.0-0.2) /100WBC Smear Tech's Comments VERIFIED ESR 23 H (0-20) MM/HR PT 11.7 (10.9-12.4) SEC Whole Blood PT 12.3 (11.1-13.5) sec INR 1.0 (0.9-1.1) Whole Blood INR 1.0 (0.9-1.1) APTT 21.1 L (26.0-36.8) SEC Sodium 141 (135-145) mmol/L Potassium 3.2 L (3.3-5.1) mmol/L Chloride 99 (96-108) mmol/L Carbon Dioxide 26 (22-29) mmol/L Anion Gap 19 (12-20) BUN 6 L (9-16) mg/dL Creatinine 0.54 (0.5-1.4) mg/dL Estim Creat Clear Calc 152.6 Estimated GFR > 60 POC Glucose 118 H (60-115) mg/dL Random Glucose 107 (60-115) mg/dL Calcium 10.0 (8.4-10.2) mg/dL Magnesium 1.5 L (1.6-2.6) mg/dL Total Bilirubin 1.4 H (0.0-1.0) mg/dL Direct Bilirubin 0.4 (0.0-0.5) mg/dL AST 54 H (5-31) U/L ALT 24 (0-31) U/L Alkaline Phosphatase 121 H (39-117) U/L Total Creatine Kinase 22 L (26-140) U/L Troponin I High Sens < 2.7 (<3.5-17.0) ng/L C-Reactive Protein 0.60 H (< or = 0.50) mg/dL Total Protein 7.0 (6.5-8.0) g/dL Albumin 3.9 (3.5-5.0) g/dL Triglycerides 84 (<150) mg/dL Cholesterol 147 (<200) mg/dL LDL Cholesterol, Calc 95 (<100) mg/dL HDL Cholesterol 36 L (>40) mg/dL TSH 2.34 (0.32-4.0) uIU/mL Beta HCG, Quant < 2 mIU/mL Urine Color Urine Appearance Urine pH (5.0-9.0) Ur Specific [place] (1.005-1.025) Urine Protein (Neg-Trace) mg/dL Urine Glucose (UA) (Negative) mg/dL Urine Ketones (Negative) mg/dL Urine Blood (Negative) Urine Nitrite (Negative) Ur Leukocyte Esterase (Negative) Urine RBC (0-2) /HPF Urine WBC (0-5) /HPF Ur Squamous Epith Cells (0-2) /HPF Urine Bacteria (None Seen) Hyaline Casts (0-2) /LPF CSF Tube Number CSF Volume ML CSF Appearance CSF Color CSF WBC MM*3 CSF RBC MM*3 CSF Lymphocytes % CSF Appearance (b) CSF Glucose mg/dL CSF Total Protein (15-45) mg/dL CSF C.neoform/gat PCR (Not Detect.) CSF CMV DNA (PCR) (Not Detect.) CSF Enterovirus (PCR) (Not Detect.) CSF E. coli K1 (PCR) (Not Detect.) CSF H. influenzae (PCR) (Not Detect.) CSF HSV I (PCR) (Not Detect.) CSF HSV II (PCR) (Not Detect.) CSF HHV 6 (PCR) (Not Detect.) CSF L.monocytogenes PCR (Not Detect.) CSF N. meningitidis PCR (Not Detect.) CSF Parechovirus (PCR) (Not Detect.) CSF S. agalactiae (PCR) (Not Detect.) CSF S. pneumoniae (PCR) (Not Detect.) CSF VZV (PCR) (Not Detect.) Urine Opiates Screen (Not Detect) Ur Buprenorphine Scrn (Not Detect) ng/mL Ur Oxycodone Screen (Not Detect) ng/mL Urine Methadone Screen (Not Detect) ng/mL Urine Fentanyl Screen (Not Detect) Ur Barbiturates Screen (Not Detect) Ur Phencyclidine Scrn (Not Detect) Ur Amphetamines Screen (Not Detect) U Benzodiazepines Scrn (Not Detect) Urine Cocaine Screen (Not Detect) U Marijuana (THC) Screen (Not Detect) Ethyl Alcohol < 10 mg/dL 12/13/24 12/13/24 12/13/24 Range/Units 00:04 00:04 02:17 WBC (4.8-10.8) X10*3/uL RBC (4.20-5.50) X10*6/uL Hgb (12.0-16.0) g/dl Hct (37.0-47.0) % MCV (80.0-98.0) fL MCH (27.0-33.0) pg MCHC (31.0-35.0) g/dl RDW (11.0-16.0) % Plt Count (160-400) X10*3/uL MPV (9.4-12.3) fL Immature Gran % (Auto) (0.0-0.4) % Neut % (Auto) (45-73) % Lymph % (Auto) (20-40) % Geary % (Auto) (2-11) % Eos % (Auto) (0-4) % Baso % (Auto) (0-2) % Lymph # (Auto) (1.2-4.9) X10*3/uL Geary # (Auto) (0.1-1.2) X10*3/uL Eos # (Auto) (0.0-0.4) X10*3/uL Baso # (Auto) (0.0-0.2) X10*3/uL Abs Immat Gran (auto) (0.00-0.03) X10*3/uL Absolute Neuts (auto) (2.0-8.3) x10*3/uL Absolute Nucleated RBC (0.0-0.012) X10*3/uL Nucleated RBC % (auto) (0.0-0.2) /100WBC Smear Tech's Comments ESR (0-20) MM/HR PT (10.9-12.4) SEC Whole Blood PT (11.1-13.5) sec INR (0.9-1.1) Whole Blood INR (0.9-1.1) APTT (26.0-36.8) SEC Sodium (135-145) mmol/L Potassium (3.3-5.1) mmol/L Chloride (96-108) mmol/L Carbon Dioxide (22-29) mmol/L Anion Gap (12-20) BUN (9-16) mg/dL Creatinine (0.5-1.4) mg/dL Estim Creat Clear Calc Estimated GFR POC Glucose (60-115) mg/dL Random Glucose (60-115) mg/dL Calcium (8.4-10.2) mg/dL Magnesium (1.6-2.6) mg/dL Total Bilirubin (0.0-1.0) mg/dL Direct Bilirubin (0.0-0.5) mg/dL AST (5-31) U/L ALT (0-31) U/L Alkaline Phosphatase (39-117) U/L Total Creatine Kinase (26-140) U/L Troponin I High Sens (<3.5-17.0) ng/L C-Reactive Protein (< or = 0.50) mg/dL Total Protein (6.5-8.0) g/dL Albumin (3.5-5.0) g/dL Triglycerides (<150) mg/dL Cholesterol (<200) mg/dL LDL Cholesterol, Calc (<100) mg/dL HDL Cholesterol (>40) mg/dL TSH (0.32-4.0) uIU/mL Beta HCG, Quant mIU/mL Urine Color Yellow Urine Appearance Clear Urine pH >= 9.0 (5.0-9.0) Ur Specific [place] >= 1.030 H (1.005-1.025) Urine Protein 30 (1+) H (Neg-Trace) mg/dL Urine Glucose (UA) Negative (Negative) mg/dL Urine Ketones Trace (Negative) mg/dL Urine Blood Negative (Negative) Urine Nitrite Negative (Negative) Ur Leukocyte Esterase Negative (Negative) Urine RBC 0-2 (0-2) /HPF Urine WBC 0-5 (0-5) /HPF Ur Squamous Epith Cells 6-10 (0-2) /HPF Urine Bacteria Trace (None Seen) Hyaline Casts 0-2 (0-2) /LPF CSF Tube Number 2 4 CSF Volume 1.5 ML CSF Appearance CLEAR CSF Color COLORLESS CSF WBC 1 MM*3 CSF RBC 2 MM*3 CSF Lymphocytes 100 % CSF Appearance (b) Clear, Colorless CSF Glucose 64 mg/dL CSF Total Protein 30.7 (15-45) mg/dL CSF C.neoform/gat PCR Not Detected (Not Detect.) CSF CMV DNA (PCR) Not Detected (Not Detect.) CSF Enterovirus (PCR) Not Detected (Not Detect.) CSF E. coli K1 (PCR) Not Detected (Not Detect.) CSF H. influenzae (PCR) Not Detected (Not Detect.) CSF HSV I (PCR) Not Detected (Not Detect.) CSF HSV II (PCR) Not Detected (Not Detect.) CSF HHV 6 (PCR) Not Detected (Not Detect.) CSF L.monocytogenes PCR Not Detected (Not Detect.) CSF N. meningitidis PCR Not Detected (Not Detect.) CSF Parechovirus (PCR) Not Detected (Not Detect.) CSF S. agalactiae (PCR) Not Detected (Not Detect.) CSF S. pneumoniae (PCR) Not Detected (Not Detect.) CSF VZV (PCR) Not Detected (Not Detect.) Urine Opiates Screen Not Detected (Not Detect) Ur Buprenorphine Scrn Not Detected (Not Detect) ng/mL Ur Oxycodone Screen Not Detected (Not Detect) ng/mL Urine Methadone Screen Not Detected (Not Detect) ng/mL Urine Fentanyl Screen Not Detected (Not Detect) Ur Barbiturates Screen Not Detected (Not Detect) Ur Phencyclidine Scrn Not Detected (Not Detect) Ur Amphetamines Screen Not Detected (Not Detect) U Benzodiazepines Scrn Not Detected (Not Detect) Urine Cocaine Screen Not Detected (Not Detect) U Marijuana (THC) Screen POSITIVE H (Not Detect) Ethyl Alcohol mg/dL Radiology Impression Discussion of test interpretation with radiology: I have reviewed the radiologist's reading. Radiologist Impression: 1 view chest x-ray. Comparison: CT/SR - CT CHEST WO IV CON - 11/16/22 23:18 EST Findings: No consolidation, pneumothorax, or effusion. Heart size normal. Impression: 1. No acute cardiopulmonary process. No focal pulmonary consolidation. This document has been electronically signed by: Pola Andrade MD on 12/12/2024 21:41:34 Dictated By: Pola Andrade MD CT head without contrast Comparison: CT/HI/SR - BRAIN WO IV CONTRAST [id number] - 01/31/19 10:57 EDT Findings: No intra-axial mass, midline shift, hydrocephalus, or acute hemorrhage. No significant atrophy-like change or white matter disease. There is no sinus or mastoid fluid. The orbits are within normal limits. There is no acute fracture. IMPRESSION: 1. No acute intracranial findings. This document has been electronically signed by: Jose Valenzuela MD on 12/12/2024 21:07:27 ADDENDUM: This report was discussed with Yony Goodman MD on Dec 12, 2024 21:10:00 EST. This document has been electronically signed by: Terrie Garcia on 12/12/2024 21:12:38 CT angiography head and neck with contrast. 3D Postprocessing. Comparison: CT/SR - CT HEAD FOR STROKE - 12/12/24 20:50 EST Findings: Aortic arch and cervical great vessels are patent. Bilateral internal carotid arteries and vertebral arteries are patent. There is an irregular slightly beaded appearance of both middle cerebral and posterior cerebral arteries raising concern for underlying vasculitis. No stenosis, large vessel occlusion or aneurysm seen. No abnormal intracranial enhancement. The visualized thyroid gland is unremarkable. No cervical mass or fluid collection. Lung apices clear. No acute fracture. IMPRESSION: 1. Patent head and neck CTA. No large vessel occlusion or stenosis. 2. Slightly beaded appearance of both of the middle cerebral and posterior cerebral arteries raises concern for underlying vasculitis. This document has been electronically signed by: Jose Valenzuela MD on 12/12/2024 21:35:49 Dictated By: Jose Valenzuela MD Critical Care Time Critical Care Time Critical Care Time: Yes Total Critical Care Time: 35 Attestation: Critical Care: The patient was critically ill with a high probability of imminent or life threatening deterioration. I spent greater than 30 minutes of discontinuous time evaluating the patient,delivering critical care at the bedside, discussing and evaluating pertinent data with consultants. Critical care time does not include time spent performing separately billable procedures or teaching. Total time spent performing critical care was 35 minutes. Discharge Plan Discharge Clinical Impression: Polyneuropathy Patient Disposition: Home, Self-Care Discharge Date/Time: 12/14/24 16:57
--- NOTE | 2024-12-12 20:46 | ECG_ITS ---
Test Reason : STROKE Blood Pressure : */* mmHG Vent. Rate : 96 BPM Atrial Rate : 96 BPM P-R Int : 120 ms QRS Dur : 92 ms QT Int : 398 ms P-R-T Axes : -2 46 8 degrees QTcB Int : 502 ms Normal sinus rhythm Prolonged QT Abnormal ECG When compared with ECG of 16-Nov-2022 22:28, Inverted T waves have replaced nonspecific T wave abnormality in Inferior leads Referred By: Lizett Corbett Electronically Signed By: MEERA LIU MD
[2024-12-12] MEDS: iohexoL 350 MG/ML 100 ML INFUS..BTL IV (21:11)
[2024-12-12 21:24] LABS: Glucose, Whole Blood 118 mg/dL (60-115)
[2024-12-12 21:25] LABS: Prothrombin Time Whole Bld POC 12.3 sec (11.1-13.5)
[2024-12-12 22:22] LABS: Eosinophils Percent Auto 0.6 % (0-4); Imm Gran Abs Auto 0.02 X10*3/uL (0.00-0.03); Imm Gran Pct Auto 0.3 % (0.0-0.4); MANUAL DIFF FLAG SCAN; Mean Corpuscular Hemoglobin 36.5 pg (27.0-33.0); PLT CLUMP 1; SCAN SMEAR FLAG 1
[2024-12-12 22:24] LABS: Basophils Absolute Auto 0.1 X10*3/uL (0.0-0.2); Basophils Percent Auto 1.8 % (0-2); Hematocrit 35.8 % (37.0-47.0); Hemoglobin 12.3 g/dl (12.0-16.0); Lymphocytes Absolute Auto 0.8 X10*3/uL (1.2-4.9); Lymphocytes Percent Auto 12.8 % (20-40); Mean Corpuscular HGB Conc 34.4 g/dl (31.0-35.0); Mean Corpuscular Volume 106.2 fL (80.0-98.0); Mean Platelet Volume 10.3 fL (9.4-12.3); Monocytes Absolute Auto 0.5 X10*3/uL (0.1-1.2); Monocytes Percent Auto 7.2 % (2-11); Neutrophils Absolute Auto 5.1 x10*3/uL (2.0-8.3); Neutrophils Percent Auto 77.3 % (45-73); Red Blood Count 3.37 X10*6/uL (4.20-5.50)
[2024-12-12 22:37] LABS: Anion Gap 19 (12-20); Blood Urea Nitrogen 6 mg/dL (9-16); Carbon Dioxide 26 mmol/L (22-29); Chloride 99 mmol/L (96-108); Cholesterol 147 mg/dL (<200); Creatinine Clr Calc Pharmacy 152.6; Estimated Glomerular Filt Rate > 60; Ethanol < 10 mg/dL; Glucose Random 107 mg/dL (60-115); HDL Cholesterol 36 mg/dL (>40); LDL Cholesterol Calculated 95 mg/dL (<100); Potassium 3.2 mmol/L (3.3-5.1); Sodium 141 mmol/L (135-145); Triglycerides 84 mg/dL (<150)
[2024-12-12 22:41] LABS: Platelet Count 343 X10*3/uL (160-400); SLIDE REVIEW VERIFIED; White Blood Count 6.6 X10*3/uL (4.8-10.8)
[2024-12-12 22:44] LABS: Troponin-I High Sensitivity < 2.7 ng/L (<3.5-17.0)
[2024-12-12 22:45] LABS: Prothrombin Time 11.7 SEC (10.9-12.4)
[2024-12-12 22:48] LABS: Partial Thromboplastin Time 21.1 SEC (26.0-36.8); Stroke Lab Use COMPLETE
--- OUTSIDE RECORDS SUMMARY | 2024-12-12 22:54 | XMS_ITS | Encounter Summary ---
Author Organization [facility] Address [address] [place] [phone] Phone Care Team Providers Care [employer] Name Role Phone Pravenea Schreiber MD Primary Care Provider [phone] Encounter Details Date Type Department Care Team (Late st Contact Info) Description 06/13/2017 Conversion Encounter [facility] [place] [address] [place] [address] Social History Tobacco Use Types Packs/Day Years Used Date Smoking Tobacco: Never Assessed Comments Unknown Sex and Gender Information Value Date Recorded Sex Assigned at Not on file Legal Sex Female 4:51 PM EDT Gender Identity Not on file Sexual Orientation Not on file documented as of this encounter Plan of Treatment Not on file documented as of this encounter Visit Diagnoses Not on filedocumented in this encounter Care Teams [employer] Relationship Specialty Start Date End Date Praveena Schreiber MD [address] [place] [address] PCP - General 06/07/17 02/03/23 documented as of this encounter
[2024-12-12] MEDS: LORazepam 2 MG/ML VIAL 1 MG IVPUSH (22:55)
[2024-12-12 22:58] LABS: Erythrocyte Sedimentation Rate 23 MM/HR (0-20)
[2024-12-13 00:14] LABS: CSF Appearance Clear, Colorless; CSF Tube # 2
[2024-12-13] MEDS: Lidocaine HCl 1 % MPF 5 ML VIAL INFILTRATI (00:20)
[2024-12-13 00:33] LABS: Appearance CSF CLEAR; CSF Tube # 4; CSF Volume 1.5 ML; Color CSF COLORLESS; Red Blood Cell CSF 2 MM*3; White Blood Cell CSF 1 MM*3
[2024-12-13 00:36] LABS: Glucose CSF 64 mg/dL; Total Protein CSF 30.7 mg/dL (15-45)
[2024-12-13 00:51] LABS: Lymphocytes CSF 100 %
[2024-12-13 01:04] LABS: Alanine Aminotransferase 24 U/L (0-31); Albumin Level 3.9 g/dL (3.5-5.0); Alkaline Phosphatase 121 U/L (39-117); Aspartate Amino Transferase 54 U/L (5-31); Bilirubin Direct 0.4 mg/dL (0.0-0.5); Bilirubin Total 1.4 mg/dL (0.0-1.0)
[2024-12-13 01:27] LABS: Magnesium 1.5 mg/dL (1.6-2.6)
[2024-12-13] MEDS: Cyanocobalamin (Vitamin B-12) 1,000 MCG/ML VIAL 1000 MCG IM (02:09)
[2024-12-13] MEDS: Thiamine HCL 500 MG in 0.9 % Sodium Chloride 100 ML 210 MG IV (02:09)
[2024-12-13 02:10] LABS: Cryptococcus neoformans/gattii Not Detected (Not Detect.); Enterovirus Not Detected (Not Detect.); Escherichia coli K1 Not Detected (Not Detect.); Haemophilus influenzae Not Detected (Not Detect.); Herpes simplex virus 1 Not Detected (Not Detect.); Herpes simplex virus 2 Not Detected (Not Detect.); Human herpesvirus 6 Not Detected (Not Detect.); Human parechovirus Not Detected (Not Detect.); Listeria monocytogenes Not Detected (Not Detect.); Neisseria meningitidis Not Detected (Not Detect.); Streptococcus agalactiae Not Detected (Not Detect.); Streptococcus pneumoniae Not Detected (Not Detect.); Varicella zoster virus Not Detected (Not Detect.)
[2024-12-13 02:22] VITALS: BP 146/104; PULSE 98; RESP 14; TEMP 36.6; O2SAT 95
[2024-12-13 02:26] LABS: Appearance Urine Clear; Color Urine Yellow; Glucose Urine UA Negative (Negative); Leukocyte Esterase Urine Negative (Negative); Nitrite Urine Negative (Negative); PH >= 9.0 (5.0-9.0); Specific Gravity - Urine >= 1.030 (1.005-1.025); UMIC TRIGGER UACC YES; Urine Blood Negative (Negative); Urine Ketones Trace mg/dL (Negative); Urine Protein 30 (1+) mg/dL (Neg-Trace)
[2024-12-13 02:39] LABS: Amphetamine Screen Urine Not Detected (Not Detect); Barbiturates, Urine Not Detected (Not Detect); Benzodiazepines Screen Urine Not Detected (Not Detect); Buprenorphine Scr Not Detected (Not Detect); Cannabinoid Screen Urine POSITIVE (Not Detect); Cocaine Screen Urine Not Detected (Not Detect); Fentanyl, urine Not Detected (Not Detect); Methadone Screen, Urine Not Detected (Not Detect); Opiate Screen Urine Not Detected (Not Detect); Oxycodone Screen Urine Not Detected (Not Detect); Phencyclidine Screen Urine Not Detected (Not Detect)
[2024-12-13 03:04] LABS: Bacteria Urine Trace (None Seen); Hyaline Casts Urine 0-2 /LPF (0-2); RBC Urine 0-2 /HPF (0-2); WBC Urine 0-5 /HPF (0-5)
[2024-12-13 03:15] LABS: HCG Quantitative < 2 mIU/mL
--- NOTE | 2024-12-13 04:28 | PM.IMHP ---
History of Present Illness Date of Service: 12/13/24 Chief Complaint: Numbness and weakness This is a 34-year-old female with pertinent history of ADHD, peripheral neuropathy of unknown etiology, hypertension who presents to the emergency department for evaluation of numbness and weakness. Patient states she has had peripheral neuropathy for a while but does not know the etiology and follows with [facility]rology outpatient and takes B12 for it. She first had numbness in the feet and ankles about 3 years ago. She recently was on a vacation to [place] about 2 weeks ago. Does endorse more than usual alcohol use in [place] but no history of alcohol withdrawals. On the day of presentation, patient states she had numbness all over body from her head to toe. It involved her face, abdomen and chest. Also noticed that she had weakness of her extremities and was feeling unsteady on her feet. Patient normally ambulates unassisted but was needing assistance to go to the bathroom. She has had upper respiratory symptoms and nonproductive cough for about 24 hours. Unclear diarrhea. No fever, chills, shortness of breath, chest pain, palpitations, vision changes, abdominal pain, changes in urinary habits. In the emergency department, CT head and CTA was done which was without acute abnormality. Patient also had LP done by ER provider and was given B12 and thiamine. Review of Systems Constitutional: Constitutional: Reports fatigue, Reports lethargy, Reports malaise and Reports weakness Cardiovascular: Cardiovascular: Reports no additional cardiovascular complaints Respiratory: Respiratory: Reports no additional respiratory complaints Gastrointestinal: Gastrointestinal: Reports no additional gastrointestinal complaints Genitourinary: Genitourinary: Reports no additional female genitourinary complaints Musculoskeletal: Musculoskeletal: Reports abnormal gait and Reports numbness Neurologic: Reports abnormal gait, Reports numbness and Reports weakness Endocrine: Endocrine: Reports fatigue [facility] Medical History (Updated 12/13/24 @ 04:48 by Shavon Coto MD) GERD (gastroesophageal reflux disease) Peripheral neuropathy Mood disorder Hypertension Pertinent family history: No family history of early CAD Surgical History No history of previous surgery Social History Household Members: Family Housing: Apartment Do you presently have visiting nurse or other home services: No Unable to assess alcohol history related to: Unknown Alcohol intake: current Alcohol intake frequency: a few times a month Alcohol type: beer Patient Tobacco Use Status: Never used Tobacco Smoked in Last 30 Days: No Use of substances other than those prescribed or required for medical reasons: No Substance Use Type: Marijuana Advance Directives: No Advance Directives Information Provided: No Do you have a plan to hurt others: No Plan Patient : No service: No Meds Allergies Allergy/AdvReac Type Severity Reaction Status Date / Time peanut [PEANUT] Allergy Intermediate ITCHINESS Verified 12/12/24 20:54 Home Medications ?Medication ?Instructions ?Recorded ?Confirmed ?Last Taken ?Type alpha lipoic acid 600 mg capsule 600 mg PO DAILY 11/17/22 11/28/22 11/15/22 History amlodipine 5 mg tablet 5 mg PO BEDTIME 11/17/22 11/28/22 11/15/22 History cyanocobalamin (vitamin B-12) 1,000 mcg PO DAILY 11/17/22 11/28/22 11/15/22 History 1,000 mcg capsule duloxetine 60 mg capsule,delayed 60 mg PO DAILY 11/17/22 11/28/22 11/15/22 History release gabapentin 300 mg capsule 900 mg PO TID 11/17/22 11/28/22 11/15/22 History metoprolol succinate 25 mg 25 mg PO DAILY 11/17/22 11/28/22 11/15/22 History tablet,extended release 24 hr cyanocobalamin (vitamin B-12) 1,000 mcg PO DAILY 01/11/23 Unknown History 1,000 mcg tablet folic acid 1 mg tablet 1 mg PO DAILY 01/11/23 Unknown History Physical Exam Vital Signs and Narrative: Vital Signs: Last Vital Signs Temp 97.9 F 12/13/24 02:22 Pulse 98 12/13/24 02:22 Resp 14 12/13/24 02:22 BP 146/104 H 12/13/24 02:22 Pulse Ox 95 12/13/24 02:22 O2 Del Method Room Air 12/13/24 02:22 BMI result Body Mass Index 28.1 Middle-aged female lying in bed in no distress Neck supple, no JVD Regular rate and rhythm, S1-S2 heard Regular breath sounds bilaterally, no wheezing or crackles appreciated Abdomen soft nontender, no guarding, no rigidity Patient is awake, alert and oriented to self, place, time and person, no focal motor weakness, strength equal in bilateral upper and lower extremities, no facial droop, no nystagmus, light touch - Psych: Normal mood No pedal edema Results Labs 12/12/24 22:10 12/12/24 22:10 Labs: Laboratory Results - last 24 hr 12/12/24 12/12/24 12/12/24 21:17 21:18 22:10 MCV 106.2 H MCH 36.5 H MCHC 34.4 RDW 17.0 H Plt Count 343 MPV 10.3 Immature Gran % (Auto) 0.3 Neut % (Auto) 77.3 H Lymph % (Auto) 12.8 L [place] % (Auto) 7.2 Eos % (Auto) 0.6 Baso % (Auto) 1.8 Lymph # (Auto) 0.8 L [place] # (Auto) 0.5 Eos # (Auto) 0.0 Baso # (Auto) 0.1 Abs Immat Gran (auto) 0.02 Absolute Neuts (auto) 5.1 Absolute Nucleated RBC 0.000 Nucleated RBC % (auto) 0.0 Smear Tech's Comments VERIFIED ESR 23 H PT 11.7 Whole Blood PT 12.3 INR 1.0 Whole Blood INR 1.0 APTT 21.1 L Anion Gap 19 Estim Creat Clear Calc 152.6 Estimated GFR > 60 POC Glucose 118 H Random Glucose 107 Calcium 10.0 Magnesium 1.5 L Total Bilirubin 1.4 H Direct Bilirubin 0.4 AST 54 H ALT 24 Alkaline Phosphatase 121 H Total Creatine Kinase 22 L C-Reactive Protein 0.60 H Total Protein 7.0 Albumin 3.9 Triglycerides 84 Cholesterol 147 LDL Cholesterol, Calc 95 HDL Cholesterol 36 L Beta HCG, Quant < 2 Urine Color Urine Appearance Urine pH Ur Specific [place] Urine Protein Urine Glucose (UA) Urine Ketones Urine Blood Urine Nitrite Ur Leukocyte Esterase Urine RBC Urine WBC Ur Squamous Epith Cells Urine Bacteria Hyaline Casts CSF Tube Number CSF Volume CSF Appearance CSF Color CSF WBC CSF RBC CSF Lymphocytes CSF Appearance (b) CSF Glucose CSF Total Protein CSF C.neoform/gat PCR CSF CMV DNA (PCR) CSF Enterovirus (PCR) CSF E. coli K1 (PCR) CSF H. influenzae (PCR) CSF HSV I (PCR) CSF HSV II (PCR) CSF HHV 6 (PCR) CSF L.monocytogenes PCR CSF N. meningitidis PCR CSF Parechovirus (PCR) CSF S. agalactiae (PCR) CSF S. pneumoniae (PCR) CSF VZV (PCR) Urine Opiates Screen Ur Buprenorphine Scrn Ur Oxycodone Screen Urine Methadone Screen Urine Fentanyl Screen Ur Barbiturates Screen Ur Phencyclidine Scrn Ur Amphetamines Screen U Benzodiazepines Scrn Urine Cocaine Screen U Marijuana (THC) Screen Ethyl Alcohol < 10 12/13/24 12/13/24 12/13/24 00:04 00:04 02:17 MCV MCH MCHC RDW Plt Count MPV Immature Gran % (Auto) Neut % (Auto) Lymph % (Auto) [place] % (Auto) Eos % (Auto) Baso % (Auto) Lymph # (Auto) [place] # (Auto) Eos # (Auto) Baso # (Auto) Abs Immat Gran (auto) Absolute Neuts (auto) Absolute Nucleated RBC Nucleated RBC % (auto) Smear Tech's Comments ESR PT Whole Blood PT INR Whole Blood INR APTT Anion Gap Estim Creat Clear Calc Estimated GFR POC Glucose Random Glucose Calcium Magnesium Total Bilirubin Direct Bilirubin AST ALT Alkaline Phosphatase Total Creatine Kinase C-Reactive Protein Total Protein Albumin Triglycerides Cholesterol LDL Cholesterol, Calc HDL Cholesterol Beta HCG, Quant Urine Color Yellow Urine Appearance Clear Urine pH >= 9.0 Ur Specific [place] >= 1.030 H Urine Protein 30 (1+) H Urine Glucose (UA) Negative Urine Ketones Trace Urine Blood Negative Urine Nitrite Negative Ur Leukocyte Esterase Negative Urine RBC 0-2 Urine WBC 0-5 Ur Squamous Epith Cells 6-10 Urine Bacteria Trace Hyaline Casts 0-2 CSF Tube Number 2 4 CSF Volume 1.5 CSF Appearance CLEAR CSF Color COLORLESS CSF WBC 1 CSF RBC 2 CSF Lymphocytes 100 CSF Appearance (b) Clear, Colorless CSF Glucose 64 CSF Total Protein 30.7 CSF C.neoform/gat PCR Not Detected CSF CMV DNA (PCR) Not Detected CSF Enterovirus (PCR) Not Detected CSF E. coli K1 (PCR) Not Detected CSF H. influenzae (PCR) Not Detected CSF HSV I (PCR) Not Detected CSF HSV II (PCR) Not Detected CSF HHV 6 (PCR) Not Detected CSF L.monocytogenes PCR Not Detected CSF N. meningitidis PCR Not Detected CSF Parechovirus (PCR) Not Detected CSF S. agalactiae (PCR) Not Detected CSF S. pneumoniae (PCR) Not Detected CSF VZV (PCR) Not Detected Urine Opiates Screen Not Detected Ur Buprenorphine Scrn Not Detected Ur Oxycodone Screen Not Detected Urine Methadone Screen Not Detected Urine Fentanyl Screen Not Detected Ur Barbiturates Screen Not Detected Ur Phencyclidine Scrn Not Detected Ur Amphetamines Screen Not Detected U Benzodiazepines Scrn Not Detected Urine Cocaine Screen Not Detected U Marijuana (THC) Screen POSITIVE H Ethyl Alcohol Assessment and Plan (1) Polyneuropathy: Status: Acute (2) Weakness: Status: Acute Plan This is a 34-year-old female with pertinent history of ADHD, peripheral neuropathy of unknown etiology, hypertension who presents to the emergency department for evaluation of numbness and weakness. #. Polyneuropathy and weakness: Patient given IV thiamine and B12 in the ER. Consulted Neurology, appreciate assistance. CTA concerning for ?vasculitis. ANCA pending. Low ESR and CRP. B12, TSH, HIV, A1c pending. Patient is on gabapentin. CSF without elevated protein #. Macrocytosis: On B12 and folate. TSH pending #. Hypertension: Continue home antihypertensives #. Mood disorder: Continue home mood stabilizers Med rec pending DVT prophylaxis: Lovenox Full code Quality Stroke Does the patient have a stroke diagnosis?: No VTE Prior VTE?: No VTE Risk Level:: Medical - moderate - high VTE Device Contraindication: Treatment Not Indicated VTE Drug Contraindication: N/A - Med Ordered
[2024-12-13 05:12] LABS: Thyroid Stimulating Hormone 2.34 uIU/mL (0.32-4.0)
--- NOTE | 2024-12-13 06:23 | PC.NURSE ---
pt ambulated to and from the bathroom with this RN, denies pain with ambulation however walking with unsteady gait, short shuffles, states her legs feel extremely heavy like she is lifting 20 pound trunks. MD Coto aware. pt back in bed, resting comfortably, no apparent distress. call christopher within reach.
[2024-12-13 06:51] LABS: Estimated Average Glucose 82 mg/dL; Hemoglobin A1C 75.4024 umol/L; Hemoglobin A1c % 4.5 % (<6.0); Total Hemoglobin (HGBA1C) 2972.7973 umol/L
[2024-12-13 07:32] LABS: Folate 7.7 ng/mL (> or = 4.0); Vitamin B12 > 2000 pg/mL (200-900)
[2024-12-13 09:35] VITALS: BP 148/101; PULSE 96; RESP 18; TEMP 36.5; O2SAT 97
[2024-12-13] MEDS: 0.9 % Sodium Chloride Flush 3 ML SYRINGE IVFLUSH ×2 (09:52→18:25)
[2024-12-13] MEDS: Enoxaparin Sodium 40 MG/0.4 ML SYRINGE SUBCUT (09:52)
[2024-12-13] MEDS: Magnesium Sulfate/H2O 2 GM/50 ML PIGGYBACK IV (09:52)
[2024-12-13] MEDS: ALPRAZolam 0.25 MG TABLET PO (10:44)
--- NOTE | 2024-12-13 10:47 | P.PNIM_ITS ---
Subjective Subjective Date of Service: 12/13/24 Interval History: Ongoing tingling and numbness Physical Exam 2 Vital Signs: Vital Signs: Last Vital Signs Temp 97.7 F 12/13/24 09:35 Pulse 96 12/13/24 09:35 Resp 18 12/13/24 09:35 BP 148/101 H 12/13/24 09:35 Pulse Ox 97 12/13/24 09:35 O2 Del Method Room Air 12/13/24 09:35 BMI result Body Mass Index 28.1 Alert oriented x3, decreased sensation over lower extremities and distal upper extremities, full strength Objective Data Active Medications Acetaminophen (Acetaminophen 325 Mg Tablet) 650 mg PO Q6H PRN PRN Reason: Pain, Mild 1-3,fever,headache Calcium Carbonate (Calcium Carbonate 750 Mg Tab.Chew) 750 mg PO Q4H PRN PRN Reason: Heartburn Enoxaparin Sodium (Enoxaparin Sodium 40 Mg/0.4 Ml Syringe) 40 mg SUBCUT Q24H [facility] Last Admin: 12/13/24 09:52 Dose: 40 mg Documented By: [place] Magnesium Hydroxide (Milk Of Magnesia 30 Ml Oral.Susp) 30 ml PO DAILY PRN PRN Reason: Constipation Melatonin (Melatonin 3 Mg Tablet) 6 mg PO BEDTIME PRN PRN Reason: Insomnia Ondansetron HCl (Ondansetron Hcl 4 Mg/2 Ml Vial) 4 mg IVPUSH Q8H PRN PRN Reason: Nausea and Vomiting Sodium Chloride (0.9 % Sodium Chloride Flush 3 Ml Syringe) [facility] Last Admin: 12/13/24 09:52 Dose: 3 ml Documented By: [place] Labs 12/12/24 22:10 12/12/24 22:10 Labs: Laboratory Results - last 24 hr 12/12/24 12/12/24 12/12/24 21:17 21:18 22:10 MCV 106.2 H MCH 36.5 H MCHC 34.4 RDW 17.0 H Plt Count 343 MPV 10.3 Immature Gran % (Auto) 0.3 Neut % (Auto) 77.3 H Lymph % (Auto) 12.8 L [place] % (Auto) 7.2 Eos % (Auto) 0.6 Baso % (Auto) 1.8 Lymph # (Auto) 0.8 L [place] # (Auto) 0.5 Eos # (Auto) 0.0 Baso # (Auto) 0.1 Abs Immat Gran (auto) 0.02 Absolute Neuts (auto) 5.1 Absolute Nucleated RBC 0.000 Nucleated RBC % (auto) 0.0 Smear Tech's Comments VERIFIED ESR 23 H PT 11.7 Whole Blood PT 12.3 INR 1.0 Whole Blood INR 1.0 APTT 21.1 L Anion Gap 19 Estim Creat Clear Calc 152.6 Estimated GFR > 60 POC Glucose 118 H Random Glucose 107 Estimat Average Glucose Hemoglobin A1c % Calcium 10.0 Magnesium 1.5 L Total Bilirubin 1.4 H Direct Bilirubin 0.4 AST 54 H ALT 24 Alkaline Phosphatase 121 H Total Creatine Kinase 22 L C-Reactive Protein 0.60 H Total Protein 7.0 Albumin 3.9 Triglycerides 84 Cholesterol 147 LDL Cholesterol, Calc 95 HDL Cholesterol 36 L Vitamin B12 Folate TSH 2.34 Beta HCG, Quant < 2 Urine Color Urine Appearance Urine pH Ur Specific [place] Urine Protein Urine Glucose (UA) Urine Ketones Urine Blood Urine Nitrite Ur Leukocyte Esterase Urine RBC Urine WBC Ur Squamous Epith Cells Urine Bacteria Hyaline Casts CSF Tube Number CSF Volume CSF Appearance CSF Color CSF WBC CSF RBC CSF Lymphocytes CSF Appearance (b) CSF Glucose CSF Total Protein CSF C.neoform/gat PCR CSF CMV DNA (PCR) CSF Enterovirus (PCR) CSF E. coli K1 (PCR) CSF H. influenzae (PCR) CSF HSV I (PCR) CSF HSV II (PCR) CSF HHV 6 (PCR) CSF L.monocytogenes PCR CSF N. meningitidis PCR CSF Parechovirus (PCR) CSF S. agalactiae (PCR) CSF S. pneumoniae (PCR) CSF VZV (PCR) Urine Opiates Screen Ur Buprenorphine Scrn Ur Oxycodone Screen Urine Methadone Screen Urine Fentanyl Screen Ur Barbiturates Screen Ur Phencyclidine Scrn Ur Amphetamines Screen U Benzodiazepines Scrn Urine Cocaine Screen U Marijuana (THC) Screen Ethyl Alcohol < 10 12/13/24 12/13/24 12/13/24 00:04 00:04 02:17 MCV MCH MCHC RDW Plt Count MPV Immature Gran % (Auto) Neut % (Auto) Lymph % (Auto) [place] % (Auto) Eos % (Auto) Baso % (Auto) Lymph # (Auto) [place] # (Auto) Eos # (Auto) Baso # (Auto) Abs Immat Gran (auto) Absolute Neuts (auto) Absolute Nucleated RBC Nucleated RBC % (auto) Smear Tech's Comments ESR PT Whole Blood PT INR Whole Blood INR APTT Anion Gap Estim Creat Clear Calc Estimated GFR POC Glucose Random Glucose Estimat Average Glucose Hemoglobin A1c % Calcium Magnesium Total Bilirubin Direct Bilirubin AST ALT Alkaline Phosphatase Total Creatine Kinase C-Reactive Protein Total Protein Albumin Triglycerides Cholesterol LDL Cholesterol, Calc HDL Cholesterol Vitamin B12 Folate TSH Beta HCG, Quant Urine Color Yellow Urine Appearance Clear Urine pH >= 9.0 Ur Specific [place] >= 1.030 H Urine Protein 30 (1+) H Urine Glucose (UA) Negative Urine Ketones Trace Urine Blood Negative Urine Nitrite Negative Ur Leukocyte Esterase Negative Urine RBC 0-2 Urine WBC 0-5 Ur Squamous Epith Cells 6-10 Urine Bacteria Trace Hyaline Casts 0-2 CSF Tube Number 2 4 CSF Volume 1.5 CSF Appearance CLEAR CSF Color COLORLESS CSF WBC 1 CSF RBC 2 CSF Lymphocytes 100 CSF Appearance (b) Clear, Colorless CSF Glucose 64 CSF Total Protein 30.7 CSF C.neoform/gat PCR Not Detected CSF CMV DNA (PCR) Not Detected CSF Enterovirus (PCR) Not Detected CSF E. coli K1 (PCR) Not Detected CSF H. influenzae (PCR) Not Detected CSF HSV I (PCR) Not Detected CSF HSV II (PCR) Not Detected CSF HHV 6 (PCR) Not Detected CSF L.monocytogenes PCR Not Detected CSF N. meningitidis PCR Not Detected CSF Parechovirus (PCR) Not Detected CSF S. agalactiae (PCR) Not Detected CSF S. pneumoniae (PCR) Not Detected CSF VZV (PCR) Not Detected Urine Opiates Screen Not Detected Ur Buprenorphine Scrn Not Detected Ur Oxycodone Screen Not Detected Urine Methadone Screen Not Detected Urine Fentanyl Screen Not Detected Ur Barbiturates Screen Not Detected Ur Phencyclidine Scrn Not Detected Ur Amphetamines Screen Not Detected U Benzodiazepines Scrn Not Detected Urine Cocaine Screen Not Detected U Marijuana (THC) Screen POSITIVE H Ethyl Alcohol 12/13/24 05:37 MCV MCH MCHC RDW Plt Count MPV Immature Gran % (Auto) Neut % (Auto) Lymph % (Auto) [place] % (Auto) Eos % (Auto) Baso % (Auto) Lymph # (Auto) [place] # (Auto) Eos # (Auto) Baso # (Auto) Abs Immat Gran (auto) Absolute Neuts (auto) Absolute Nucleated RBC Nucleated RBC % (auto) Smear Tech's Comments ESR PT Whole Blood PT INR Whole Blood INR APTT Anion Gap Estim Creat Clear Calc Estimated GFR POC Glucose Random Glucose Estimat Average Glucose 82 Hemoglobin A1c % 4.5 Calcium Magnesium Total Bilirubin Direct Bilirubin AST ALT Alkaline Phosphatase Total Creatine Kinase C-Reactive Protein Total Protein Albumin Triglycerides Cholesterol LDL Cholesterol, Calc HDL Cholesterol Vitamin B12 > 2000 H Folate 7.7 TSH Beta HCG, Quant Urine Color Urine Appearance Urine pH Ur Specific [place] Urine Protein Urine Glucose (UA) Urine Ketones Urine Blood Urine Nitrite Ur Leukocyte Esterase Urine RBC Urine WBC Ur Squamous Epith Cells Urine Bacteria Hyaline Casts CSF Tube Number CSF Volume CSF Appearance CSF Color CSF WBC CSF RBC CSF Lymphocytes CSF Appearance (b) CSF Glucose CSF Total Protein CSF C.neoform/gat PCR CSF CMV DNA (PCR) CSF Enterovirus (PCR) CSF E. coli K1 (PCR) CSF H. influenzae (PCR) CSF HSV I (PCR) CSF HSV II (PCR) CSF HHV 6 (PCR) CSF L.monocytogenes PCR CSF N. meningitidis PCR CSF Parechovirus (PCR) CSF S. agalactiae (PCR) CSF S. pneumoniae (PCR) CSF VZV (PCR) Urine Opiates Screen Ur Buprenorphine Scrn Ur Oxycodone Screen Urine Methadone Screen Urine Fentanyl Screen Ur Barbiturates Screen Ur Phencyclidine Scrn Ur Amphetamines Screen U Benzodiazepines Scrn Urine Cocaine Screen U Marijuana (THC) Screen Ethyl Alcohol Microbiology Microbiology Results: Microbiology 12/13/24 00:04 Gram Stain - Final Cerebrospinal Fluid CSF Examination - Final Fluid Description - Final Assessment and Plan (1) Peripheral neuropathy: Status: Acute Plan 34F PMH ADHD, alcohol abuse, peripheral neuropathy, hypertension presented with worsening numbness and tingling Acute flare of chronic peripheral polyneuropathy Has had extensive workup at [facility], suspected most likely due to alcohol, follow up Neurology CTA did show question for vasculitis Follow up anca DVT prophylaxis with Lovenox Full Code reason for continued hospitalization: Neuro eval Quality Stroke Does the patient have a stroke diagnosis?: No VTE Prior VTE?: No VTE Risk Level:: Medical - moderate - high VTE Device Contraindication: Treatment Not Indicated VTE Drug Contraindication: N/A - Med Ordered
--- NOTE | 2024-12-13 11:29 | PHA.MEDREC ---
Addendum entered by Kisha Godinez RPh 12/13/24 11:38: reviewed by [facility]. Original Note: Pharmacy Consult ? Medication Reconciliation Pharmacy has completed the medication reconciliation. Spoke with patient to confirm medications. She reports all of her meds are prescription and she picks them up at [facility]. Only recent pickup/claim was for adderall. [facility] had no fills for these meds except adderall. Low only had past fills for metoprolol (12/28/23) and B12 (11/2022). No history of duloxetine. Left unconfirmed on med rec. She did not report gabapentin nor are there claims.
--- NOTE | 2024-12-13 12:05 | MHC.CM.PN ---
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
--- NOTE | 2024-12-13 20:06 | PC.NURSE ---
this rn assumed care of pt, pt a&ox4, respirations even and unlabored. vss. pt requesting anxiety medication at this time, provider aware.
[2024-12-13] MEDS: LORazepam 1 MG TABLET PO (20:37)
--- NOTE | 2024-12-13 20:40 | PC.NURSE ---
pt medicated per mar, tolerated well with water.
[2024-12-13 21:07] VITALS: BP 156/105; PULSE 101; RESP 25; TEMP 36.8; O2SAT 99
[2024-12-13] MEDS: DULoxetine HCl 60 MG CAPSULE.DR PO (22:18)
[2024-12-13] MEDS: Melatonin 3 MG TABLET PO (22:19)
[2024-12-13] MEDS: Melatonin 3 MG TABLET 6 MG PO (22:19)
[2024-12-14] MEDS: 0.9 % Sodium Chloride Flush 3 ML SYRINGE IVFLUSH ×2 (01:15→09:20)
[2024-12-14 05:24] LABS: MANUAL DIFF FLAG NO
[2024-12-14 05:30] LABS: Basophils Percent Auto 0.6 % (0-2); Eosinophils Absolute Auto 0.2 X10*3/uL (0.0-0.4); Eosinophils Percent Auto 2.4 % (0-4); Hematocrit 33.8 % (37.0-47.0); Hemoglobin 11.6 g/dl (12.0-16.0); Imm Gran Abs Auto 0.02 X10*3/uL (0.00-0.03); Imm Gran Pct Auto 0.3 % (0.0-0.4); Lymphocytes Absolute Auto 2.1 X10*3/uL (1.2-4.9); Lymphocytes Percent Auto 32.2 % (20-40); Mean Corpuscular HGB Conc 34.3 g/dl (31.0-35.0); Mean Corpuscular Hemoglobin 36.1 pg (27.0-33.0); Mean Corpuscular Volume 105.3 fL (80.0-98.0); Mean Platelet Volume 11.2 fL (9.4-12.3); Monocytes Absolute Auto 0.5 X10*3/uL (0.1-1.2); Monocytes Percent Auto 8.2 % (2-11); Neutrophils Absolute Auto 3.7 x10*3/uL (2.0-8.3); Neutrophils Percent Auto 56.3 % (45-73); PLT CLUMP 1; Red Blood Count 3.21 X10*6/uL (4.20-5.50); Red Cell Distribution Width 16.8 % (11.0-16.0); SCAN SMEAR FLAG 1; White Blood Count 6.6 X10*3/uL (4.8-10.8)
[2024-12-14 05:37] LABS: Anion Gap 16 (12-20); Blood Urea Nitrogen 7 mg/dL (9-16); Calcium 9.3 mg/dL (8.4-10.2); Carbon Dioxide 27 mmol/L (22-29); Chloride 99 mmol/L (96-108); Creatinine Clr Calc Pharmacy 149.9; Estimated Glomerular Filt Rate > 60; Glucose Random 91 mg/dL (60-115); Potassium 3.5 mmol/L (3.3-5.1); Sodium 138 mmol/L (135-145)
[2024-12-14 06:14] VITALS: BP 141/90; PULSE 88; RESP 16; TEMP 36.8; O2SAT 96
--- NOTE | 2024-12-14 08:00 | PC.NURSE ---
pt is currently asleep, respirations even and unlabored
[2024-12-14 09:17] VITALS: BP 123/88; PULSE 96; RESP 18; O2SAT 96
[2024-12-14] MEDS: Cyanocobalamin (Vitamin B-12) 1,000 MCG TABLET 1000 MCG PO (09:19)
[2024-12-14] MEDS: Amphetamine Mixed Salts 20 MG TABLET PO (09:19)
[2024-12-14] MEDS: Folic Acid 1 MG TABLET PO (09:19)
[2024-12-14] MEDS: Enoxaparin Sodium 40 MG/0.4 ML SYRINGE SUBCUT (09:20)
--- NOTE | 2024-12-14 09:20 | PC.NURSE ---
Addendum entered by Vicky Rodriguez 12/14/24 10:54: also called pharmacy in regards to the Cymbalta Original Note: pt is alert and oriented, skin pwd, respirations even and unlabored, pt denies pain but is reporting numbness to her entire body- states that she can't even feel her lips at all, the torsal is also very numb but her extremities are numb not as bad as the rest of her body, pt did not eat her breakfast reports that she did not like the food, vs stable pt is also asking about her cymbalta , tigered the hospitalist in regards to
--- NOTE | 2024-12-14 10:20 | PM.NEUROCN ---
History of Present Illness Data of Consult Service Date: 12/14/24 Primary Care Provider: Magali Calabrese MD [facility] Reason for consult: Numbness 34 years old woman who reported that she suffered from peripheral neuropathy diagnosed at [facility] came to hospital with complaints of new symptoms of numbness involving her feet legs torso hands arms and face. It was like she had no feeling in those areas. There was no obvious weakness. Apparently she had some exposure to alcohol recently she seemed not to be suffering from any cold or flu-like illness. There was no diarrhea or loss of bowel bladder control or any significant headache or neck pain. She had initial head CT that was okay and then a lumbar puncture that did not reveal any CSF abnormality. Laboratories were inconclusive she continues to complain of these symptoms. Review of Systems Review of Systems: As per HPI [facility] Past Medical History Medical History (Updated 12/14/24 @ 10:23 by Nahum Perez MD) GERD (gastroesophageal reflux disease) Peripheral neuropathy Mood disorder Hypertension Surgical History Surgical History No history of previous surgery Social History Social History Household Members: Family Housing: Apartment Do you presently have visiting nurse or other home services: No Unable to assess alcohol history related to: Unknown Alcohol intake: current Alcohol intake frequency: a few times a month Alcohol type: beer Patient Tobacco Use Status: Never used Tobacco Smoked in Last 30 Days: No Use of substances other than those prescribed or required for medical reasons: No Substance Use Type: Marijuana Advance Directives: No Advance Directives Information Provided: No Do you have a plan to hurt others: No Plan Nutrition Risks: No Nutritional Risk Patient : No service: No Meds Allergies Allergy/AdvReac Type Severity Reaction Status Date / Time peanut [PEANUT] Allergy Intermediate ITCHINESS Verified 12/12/24 20:54 Active Medications: Current Medications Acetaminophen (Acetaminophen 325 Mg Tablet) 650 mg PO Q6H PRN PRN Reason: Pain, Mild 1-3,fever,headache Amphetamine/Dextroamphetamine (Amphetamine Mixed Salts 20 Mg Tablet) 20 mg PO DAILY ISAAK Last Admin: 12/14/24 09:19 Dose: 20 mg Calcium Carbonate (Calcium Carbonate 750 Mg Tab.Chew) 750 mg PO Q4H PRN PRN Reason: Heartburn Cyanocobalamin (Cyanocobalamin (Vitamin B-12) 1,000 Mcg Tablet) 1,000 mcg PO DAILY [facility] Last Admin: 12/14/24 09:19 Dose: 1,000 mcg Enoxaparin Sodium (Enoxaparin Sodium 40 Mg/0.4 Ml Syringe) 40 mg SUBCUT Q24H [facility] Last Admin: 12/14/24 09:20 Dose: 40 mg Folic Acid (Folic Acid 1 Mg Tablet) 1 mg PO DAILY [facility] Last Admin: 12/14/24 09:19 Dose: 1 mg Magnesium Hydroxide (Milk Of Magnesia 30 Ml Oral.Susp) 30 ml PO DAILY PRN PRN Reason: Constipation Melatonin (Melatonin 3 Mg Tablet) 6 mg PO BEDTIME PRN PRN Reason: Insomnia Last Admin: 12/13/24 22:19 Dose: 6 mg Ondansetron HCl (Ondansetron Hcl 4 Mg/2 Ml Vial) 4 mg IVPUSH Q8H PRN PRN Reason: Nausea and Vomiting Sodium Chloride (0.9 % Sodium Chloride Flush 3 Ml Syringe) 3 ml IVFLUSH QSHIFT [facility] Last Admin: 12/14/24 09:20 Dose: 3 ml Home Medications ?Medication ?Instructions ?Recorded ?Confirmed ?Last Taken ?Type alpha lipoic acid 600 mg capsule 600 mg PO DAILY 11/17/22 12/13/24 11/15/22 History duloxetine 60 mg capsule,delayed 60 mg PO DAILY 11/17/22 11/28/22 11/15/22 History release metoprolol succinate 25 mg 25 mg PO DAILY 11/17/22 11/28/22 11/15/22 History tablet,extended release 24 hr cyanocobalamin (vitamin B-12) 1,000 mcg PO DAILY 01/11/23 12/13/24 Unknown History 1,000 mcg tablet folic acid 1 mg tablet 1 mg PO DAILY 01/11/23 12/13/24 Unknown History dextroamphetamine-amphetamine 20 1 tab PO DAILY 12/13/24 12/13/24 Unknown History mg tablet Physical Exam Vital Signs: Vital Signs: Last Vital Signs Temp 98.2 F 12/14/24 06:14 Pulse 96 12/14/24 09:17 Resp 18 12/14/24 09:17 BP 123/88 12/14/24 09:17 Pulse Ox 96 12/14/24 09:17 O2 Del Method Room Air 12/14/24 09:17 BMI result Body Mass Index 28.1 Neuro: Other: She is alert and awake with normal spontaneity of speech fluency comprehension and affect. Face is symmetrical. Visual richardson are full. There is no focal weakness. Deep tendon reflexes are trace in arms and knees and trace to absent in ankles with flexor plantars. [id number] testing is normal. No obvious focal weakness is noted. Speech is normal. Results Labs 12/14/24 05:20 12/14/24 05:20 Labs: Short CBC 12/14/24 Range/Units 05:20 WBC 6.6 (4.8-10.8) X10*3/uL Hgb 11.6 L (12.0-16.0) g/dl Hct 33.8 L (37.0-47.0) % Plt Count TNP BMP 12/14/24 05:20 Sodium 138 Potassium 3.5 Chloride 99 Carbon Dioxide 27 BUN 7 L Creatinine 0.[address] did not reveal any significant abnormality. CSF did not reveal any significant abnormality. Microbiology Microbiology Results: Microbiology 12/13/24 00:04 Cerebrospinal Fluid Gram Stain - Final 12/13/24 00:04 Cerebrospinal Fluid CSF Examination - Final 12/13/24 00:04 Cerebrospinal Fluid Fluid Description - Final 12/13/24 00:04 Cerebrospinal Fluid CSF Culture - Preliminary No growth after 1 day Assessment and Plan (1) Paresthesias: Status: Acute (2) Numbness: Status: Acute 34 years old woman who stated that she suffered from neuropathy diagnosed at [facility]. Apparently she had some exposure to alcohol recently and came to emergency room with complaints of numbness that was much worse from her previous symptoms of neuropathy. This numbness was reported to involve most of her body including her face and mouth. She denied palpitation or chest pressure. She denied being anxious. Examination did not reveal any obvious upper motor neuron signs. Ankle reflexes were trace to absent. She might have underlying neuropathy but overall clinical picture was not suggestive of Guillain-[place] syndrome. CSF was clean. Differential diagnosis would include demyelinating disease, toxic exposure resulting in worsening of small fiber neuropathy, and psychosomatic disease. My recommendation is to obtain a brain MRI without contrast to screen for demyelinating disease. If that is negative, she should see her primary neurologist for further evaluation. She should be advised to not drink alcohol and take B complex vitamins. Procedures Date of Service Date of Service: 12/14/24
--- NOTE | 2024-12-14 11:08 | HO.PM.IMPN ---
Subjective Subjective Date of Service: 12/14/24 Interval History: Ongoing tingling and numbness Physical Exam Vital Signs: Vital Signs: Last Vital Signs Temp 98.2 F 12/14/24 06:14 Pulse 96 12/14/24 09:17 Resp 18 12/14/24 09:17 BP 123/88 12/14/24 09:17 Pulse Ox 96 12/14/24 09:17 O2 Del Method Room Air 12/14/24 09:17 BMI result Body Mass Index 28.1 Neuro: Other: She is alert and awake with normal spontaneity of speech fluency comprehension and affect. Face is symmetrical. Visual richardson are full. There is no focal weakness. Deep tendon reflexes are trace in arms and knees and trace to absent in ankles with flexor plantars. [id number] testing is normal. No obvious focal weakness is noted. Speech is normal. Objective Data Active Medications Acetaminophen (Acetaminophen 325 Mg Tablet) 650 mg PO Q6H PRN PRN Reason: Pain, Mild 1-3,fever,headache Amphetamine/Dextroamphetamine (Amphetamine Mixed Salts 20 Mg Tablet) 20 mg PO DAILY [facility] Last Admin: 12/14/24 09:19 Dose: 20 mg Documented By: OLU Calcium Carbonate (Calcium Carbonate 750 Mg Tab.Chew) 750 mg PO Q4H PRN PRN Reason: Heartburn Cyanocobalamin (Cyanocobalamin (Vitamin B-12) 1,000 Mcg Tablet) 1,000 mcg PO DAILY [facility] Last Admin: 12/14/24 09:19 Dose: 1,000 mcg Documented By: OLU Enoxaparin Sodium (Enoxaparin Sodium 40 Mg/0.4 Ml Syringe) 40 mg SUBCUT Q24H [facility] Last Admin: 12/14/24 09:20 Dose: 40 mg Documented By: OLU Folic Acid (Folic Acid 1 Mg Tablet) 1 mg PO DAILY [facility] Last Admin: 12/14/24 09:19 Dose: 1 mg Documented By: OLU Magnesium Hydroxide (Milk Of Magnesia 30 Ml Oral.Susp) 30 ml PO DAILY PRN PRN Reason: Constipation Melatonin (Melatonin 3 Mg Tablet) 6 mg PO BEDTIME PRN PRN Reason: Insomnia Last Admin: 12/13/24 22:19 Dose: 6 mg Documented By: TARYN Ondansetron HCl (Ondansetron Hcl 4 Mg/2 Ml Vial) 4 mg IVPUSH Q8H PRN PRN Reason: Nausea and Vomiting Sodium Chloride (0.9 % Sodium Chloride Flush 3 Ml Syringe) [facility] Last Admin: 12/14/24 09:20 Dose: 3 ml Documented By: OLU Labs 12/14/24 05:20 12/14/24 05:20 Labs: Laboratory Results - last 24 hr 12/14/24 05:20 MCV 105.3 H MCH 36.1 H MCHC 34.3 RDW 16.8 H Plt Count TNP MPV 11.2 Immature Gran % (Auto) 0.3 Neut % (Auto) 56.3 Lymph % (Auto) 32.2 [place] % (Auto) 8.2 Eos % (Auto) 2.4 Baso % (Auto) 0.6 Lymph # (Auto) 2.1 [place] # (Auto) 0.5 Eos # (Auto) 0.2 Baso # (Auto) 0.0 Abs Immat Gran (auto) 0.02 Absolute Neuts (auto) 3.7 Absolute Nucleated RBC 0.000 Nucleated RBC % (auto) 0.0 Anion Gap 16 Estim Creat Clear Calc 149.9 Estimated GFR > 60 Random Glucose 91 Calcium 9.3 D Microbiology Microbiology Results: Microbiology 12/13/24 00:04 Gram Stain - Final Cerebrospinal Fluid CSF Examination - Final Fluid Description - Final CSF Culture - Preliminary No growth after 1 day Assessment and Plan (1) Peripheral neuropathy: Status: Acute Plan 34F PMH ADHD, alcohol abuse, peripheral neuropathy, hypertension presented with worsening numbness and tingling Acute flare of chronic peripheral polyneuropathy Has had extensive workup at [facility], suspected most likely due to alcohol CTA did show question for vasculitis Follow up anca Neuro appreciated, check MRI brain without contrast DVT prophylaxis with Lovenox Full Code reason for continued hospitalization: MRI brain pending Quality Stroke Does the patient have a stroke diagnosis?: No VTE Prior VTE?: No VTE Risk Level:: Medical - moderate - high VTE Device Contraindication: Treatment Not Indicated VTE Drug Contraindication: N/A - Med Ordered
--- NOTE | 2024-12-14 11:10 | PM.DS ---
DS: Providers Provider Date of Service: 12/14/24 Date of admission: 12/13/24 04:26 Date of discharge: 12/14/24 Primary care physician: Magali Calabrese MD Consults: 12/13/24 04:28 Consult to Neurology Routine Consulting Provider: [facility] Reason for consultation: numbness and weakness DS: Diagnosis Discharge Diagnosis (1) Peripheral neuropathy: Status: Acute DS: Summary Hospital Course Hospital Course: From initial hpi: 34-year-old female with pertinent history of ADHD, peripheral neuropathy of unknown etiology, hypertension who presents to the emergency department for evaluation of numbness and weakness. Patient states she has had peripheral neuropathy for a while but does not know the etiology and follows with [facility] outpatient and takes B12 for it. She first had numbness in the feet and ankles about 3 years ago. She recently was on a vacation to [place] about 2 weeks ago. Does endorse more than usual alcohol use in CT but no history of alcohol withdrawals. On the day of presentation, patient states she had numbness all over body from her head to toe. It involved her face, abdomen and chest. Also noticed that she had weakness of her extremities and was feeling unsteady on her feet. Patient normally ambulates unassisted but was needing assistance to go to the bathroom. She has had upper respiratory symptoms and nonproductive cough for about 24 hours. Unclear diarrhea. No fever, chills, shortness of breath, chest pain, palpitations, vision changes, abdominal pain, changes in urinary habits. In the emergency department, CT head and CTA was done which was without acute abnormality. Patient also had LP done by ER provider and was given B12 and thiamine. Hospital course: Patient was admitted for acute flare of chronic peripheral neuropathy. She has had extensive workup with [facility], due to CTA showing question for vasculitis ANCA studies were done here and should be followed up outpatient. Was seen by Neurology recommended MRI of the brain without contrast which was done and was normal. Patient is medically stable and will be discharged home should follow up with Neurology Time Attestation Discharge Coordination Time (in mins): 32 Quality: Safe Use of Opioids Does Pt have an Active Cancer Diagnosis on the Problem List?: No Quality: Stroke Does the patient have a stroke diagnosis?: No Physical Exam Vital Signs: Vital Signs: Last Vital Signs Temp 98.2 F 12/14/24 06:14 Pulse 96 12/14/24 09:17 Resp 18 12/14/24 09:17 BP 123/88 12/14/24 09:17 Pulse Ox 96 12/14/24 09:17 O2 Del Method Room Air 12/14/24 09:17 BMI result Body Mass Index 28.1 Neuro: Other: She is alert and awake with normal spontaneity of speech fluency comprehension and affect. Face is symmetrical. Visual richardson are full. There is no focal weakness. Deep tendon reflexes are trace in arms and knees and trace to absent in ankles with flexor plantars. Ydjyyk-ry-peeb testing is normal. No obvious focal weakness is noted. Speech is normal. DS: Data Data Completed and Pending Completed studies during hospitalization [Text1]: Procedures Inspection of Upper Intestinal Tract, Via Natural or Artificial Opening Endoscopic (11/17/22) Labs on day of discharge: Laboratory Results - last 24 hr 12/14/24 05:20 WBC 6.6 RBC 3.21 L Hgb 11.6 L Hct 33.8 L MCV 105.3 H MCH 36.1 H MCHC 34.3 RDW 16.8 H Plt Count TNP MPV 11.2 Immature Gran % (Auto) 0.3 Neut % (Auto) 56.3 Lymph % (Auto) 32.2 [place] % (Auto) 8.2 Eos % (Auto) 2.4 Baso % (Auto) 0.6 Lymph # (Auto) 2.1 [place] # (Auto) 0.5 Eos # (Auto) 0.2 Baso # (Auto) 0.0 Abs Immat Gran (auto) 0.02 Absolute Neuts (auto) 3.7 Absolute Nucleated RBC 0.000 Nucleated RBC % (auto) 0.0 Sodium 138 Potassium 3.5 Chloride 99 Carbon Dioxide 27 Anion Gap 16 BUN 7 L Creatinine 0.55 Estim Creat Clear Calc 149.9 Estimated GFR > 60 Random Glucose 91 Calcium 9.3 D Preliminary micro results at discharge 12/13/24 00:04 CSF Culture - Preliminary Cerebrospinal Fluid No growth after 1 day Discharge Plan Discharge Anticipated Discharge Date/Time: 12/14/24 11:09 Patient Disposition: Home, Self-Care Discharge Diagnosis: Flare of chronic peripheral polyneuropathy Referrals: Magali Calabrese MD [Primary Care Provider] - 1 Week Discharge Medications: Continued duloxetine 60 mg capsule,delayed release(DR/EC) 60 mg PO DAILY metoprolol succinate 25 mg tablet extended release 24 hr 25 mg PO DAILY alpha lipoic acid 600 mg capsule 600 mg PO DAILY dextroamphetamine-amphetamine 20 mg tablet 1 tab PO DAILY cyanocobalamin (vitamin B-12) 1,000 mcg tablet 1,000 mcg PO DAILY folic acid 1 mg tablet 1 mg PO DAILY Discharge Orders: Discharge Order (Routine); Ordered 12/14/24 Ordered By: Earl Tiwari Diet: Advance to usual diet Activity on Discharge: As tolerated Stand Alone Forms: Patient Portal Discharge page Print Language: Monegasque Care Plan Goals: Manage polyneuropathy Health Concerns: Chronic polyneuropathy Plan of Treatment: Continue neuropathic meds, avoid alcohol, follow up with Neurology Assessment: See above
[2024-12-14 12:31] VITALS: BP 135/98; PULSE 91; RESP 18; TEMP 36.4; O2SAT 96
[2024-12-14] MEDS: LORazepam 2 MG/ML VIAL 1 MG IVPUSH (14:25)
--- NOTE | 2024-12-14 14:25 | PC.NURSE ---
Medicated with IVP Ativan per MAR
--- NOTE | 2024-12-14 15:00 | PC.NURSE ---
Care of Pt assumed at 1500. Pt leaves unit for MRI at 1452.
--- NOTE | 2024-12-14 15:32 | PC.NURSE ---
Pt returns from MRI.
--- NOTE | 2024-12-14 15:35 | MHC.CM.PN ---
pt dcd home self care
[2024-12-14 16:56] VITALS: BP 135/90; PULSE 105; RESP 16; O2SAT 97
[2024-12-14 22:33] LABS: A. Phagocytphilium DNA,RT-PCR NOT DETECTED (NOT DETECTED); Babesia Microti DNA, RT-PCR NOT DETECTED (NOT DETECTED); Borrelia Miyamotoi,DNA RT-PCR NOT DETECTED (NOT DETECTED); E.Chaffeensis DNA RT-PCR NOT DETECTED (NOT DETECTED); Lyme(Borrelia ssp)DNA RT-PCR NOT DETECTED (NOT DETECTED)
[2024-12-15 08:20] LABS: HIV AB/AG Nonreactive (Nonreactive); HIV Num 1 0.08 S/CO (0.00-0.99)
[2024-12-15 13:54] LABS: Anti Nuclear Antibody Screen NEGATIVE (NEGATIVE)
[2024-12-15 23:09] LABS: Myeloperoxidase Antibody <1.0 AI; Proteinase 3 PR3 Antibodies <1.0 AI
== END 2024-12-14 16:48 | disposition home or self-care (01) ==
LOC: HO.ED 22:52 → HO.EDOVER 12-13 05:09
PROVIDERS: Physician Assistant Medical; Admitting Provider Student in an Organized Health Care Education/Training Program; Emergency Provider Emergency Medicine Emergency Medical Services; PCP Internal Medicine; Visit Provider Internal Medicine
DX: G62.9 Polyneuropathy, unspecified (principal); R20.0 Anesthesia of skin; R53.1 Weakness; R47.81 Slurred speech; R05.9 Cough, unspecified; J34.89 Other specified disorders of nose and nasal sinuses; I10 Essential (primary) hypertension; F39 Unspecified mood [affective] disorder; K21.9 Gastro-esophageal reflux disease without esophagitis; D75.89 Other specified diseases of blood and blood-forming organs; F90.9 Attention-deficit hyperactivity disorder, unspecified type; Z79.899 Other long term (current) drug therapy
CPT/HCPCS: 36415; 70450; 70496; 70498; 70551; 71045; 80048; 80061; 80076; 80307; 81001; 82550; 82607; 82746; 82945; 82947; 83036; 83735; 84157; 84443; 84484; 84702; 85025; 85610; 85652; 85730; 86021; 86038; 86140; 87015; 87070; 87205; 87389; 87468; 87469; 87478; 87483; 87484; 87798; 89051; 93005; 96365; 96366; 96367; 96372; 96375; 96376; 99285; J1650; J2003; J2060; J3411; J3420; J3475; Q9967

== ENCOUNTER → 2024-12-12 20:46 | Outpatient (BNV) | payer OTHER, SELFPAY | PROVIDERS: Emergency Provider Emergency Medicine Emergency Medical Services; PCP Internal Medicine; Visit Provider Radiology Diagnostic Radiology | DX: R47.81 Slurred speech (principal); R07.89 Other chest pain; R20.0 Anesthesia of skin | CPT/HCPCS: 70450; 70496; 70498; 71045 ==

== ENCOUNTER → 2024-12-12 20:46 | Outpatient (BNV) | payer OTHER, SELFPAY | PROVIDERS: Admitting Provider Student in an Organized Health Care Education/Training Program; Emergency Provider Emergency Medicine Emergency Medical Services; PCP Internal Medicine; Visit Provider Internal Medicine Cardiovascular Disease | DX: R94.31 Abnormal electrocardiogram [ECG] [EKG] (principal); I63.9 Cerebral infarction, unspecified | CPT/HCPCS: 93010 ==

== ENCOUNTER → 2024-12-12 22:50 | Outpatient (BNV) | payer OTHER, SELFPAY | PROVIDERS: Emergency Provider Emergency Medicine Emergency Medical Services; PCP Internal Medicine; Visit Provider Student in an Organized Health Care Education/Training Program | DX: G62.9 Polyneuropathy, unspecified (principal); R53.1 Weakness; D75.89 Other specified diseases of blood and blood-forming organs; I10 Essential (primary) hypertension | CPT/HCPCS: 99223; 99239; 99499 ==

== ENCOUNTER 2024-12-13 04:26 | Outpatient (BNV) | payer OTHER, SELFPAY | END 2024-12-14 14:58 | PROVIDERS: Admitting Provider Student in an Organized Health Care Education/Training Program; Emergency Provider Emergency Medicine Emergency Medical Services; PCP Internal Medicine; Visit Provider Radiology Diagnostic Radiology | DX: R20.0 Anesthesia of skin (principal) | CPT/HCPCS: 70551 ==

== ENCOUNTER → 2024-12-13 04:26 | Outpatient (BNV) | payer OTHER, SELFPAY | PROVIDERS: Admitting Provider Student in an Organized Health Care Education/Training Program; Emergency Provider Emergency Medicine Emergency Medical Services; PCP Internal Medicine; Visit Provider Psychiatry & Neurology Neurology | DX: R20.2 Paresthesia of skin (principal); R20.0 Anesthesia of skin | CPT/HCPCS: 99222 ==

== ENCOUNTER 2025-02-21 09:56 | Emergency (ER) | payer OTHER, SELFPAY ==
[2025-02-21] VITALS (9 sets, daily range): BP systolic 138–162; BP diastolic 92–115; PULSE 89–106; RESP 13–20; TEMP 36.4–36.7; O2SAT 94–99
--- NOTE | ~2025-02-21 | US_ITS ---
CLINICAL HISTORY: RUQ epigastric pain vomiting --- Additional Notes or Special Instructions: look at GB, ducts, liver, pancreas US ABDOMEN LIMITED Comparison: US/SR - US ABDOMEN LIMITED - 01/22/23 09:11 EDT Findings: Visualized portions of the pancreas appear unremarkable. The tail is obscured by bowel gas. The right hepatic lobe measures 18 cm. The liver is heterogeneous and echogenic. There is no intrahepatic bile duct dilatation. Common bile duct measures 3.6 mm. The gallbladder is normal. There is no sonographic Bonner sign. The main portal vein is antegrade. Right kidney measures 10.8 cm in length. No hydronephrosis. There is a 2 mm calculus. There is a 7 mm midpole cyst. No ascites. IMPRESSION: 1. No cholelithiasis or acute cholecystitis. 2. No biliary ductal dilatation. 3. Hepatomegaly and hepatic steatosis. 4. No right hydronephrosis. Nonobstructing 2 mm intrarenal calculus. Tiny cyst. This document has been electronically signed by: Norma Betancur DO on 02/21/2025 14:03:45
--- NOTE | 2025-02-21 10:49 | ED_ITS ---
HPI - Abdominal Pain General Chief Complaint: Abdominal Pain Stated Complaint: n/v, abd pain Time Seen by Provider: 02/21/25 10:44 Source: patient Mode of arrival: ambulatory Limitations: no limitations History of Present Illness ED Provider: KATRIN SOUTH PA-C HPI narrative: 34 year old female presents to the ED today for evaluation of GERD, HTN, peripheral neuropathy, and mood disorder presents to the ED today for evaluation of nausea, vomiting, and epigastric abdominal pain x5 days. States she feels bloated. Admits to one episode of brown loose stool last night. Nonbloody emesis and stool. No know sick contacts. No hx of abdominal surgeries. Patient noted to be hypertensive on arrival. She reports history of HTN. States her outpatient provider discontinued her blood pressure medications a few months ago as her blood pressure was controlled . Related Data Home Medications ?Medication ?Instructions ?Recorded ?Confirmed alpha lipoic acid 600 mg capsule 600 mg PO DAILY 11/17/22 12/13/24 duloxetine 60 mg capsule,delayed 60 mg PO DAILY 11/17/22 11/28/22 release metoprolol succinate 25 mg 25 mg PO DAILY 11/17/22 11/28/22 tablet,extended release 24 hr cyanocobalamin (vitamin B-12) 1,000 mcg PO DAILY 01/11/23 12/13/24 1,000 mcg tablet folic acid 1 mg tablet 1 mg PO DAILY 01/11/23 12/13/24 dextroamphetamine-amphetamine 20 1 tab PO DAILY 12/13/24 12/13/24 mg tablet Previous Rx's ?Medication ?Instructions ?Recorded ondansetron 4 mg disintegrating 4 mg PO DAILY PRN nausea and 02/21/25 tablet vomiting 5 days #10 tabs Allergies Allergy/AdvReac Type Severity Reaction Status Date / Time peanut [PEANUT] Allergy Intermediate ITCHINESS Verified 02/21/25 10:07 Review of Systems Review of Systems Yes all other systems are reviewed and are negative PMFSH Past Medical History Attestation statement: The following information was validated with the patient. Source: old records reviewed and nursing notes reviewed Medical History GERD (gastroesophageal reflux disease) Peripheral neuropathy Mood disorder Hypertension Surgical History No history of previous surgery Social History Social History Household Members: Family Housing: Apartment Do you presently have visiting nurse or other home services: No Unable to assess alcohol history related to: Unknown Alcohol intake: current Alcohol intake frequency: a few times a month Alcohol type: beer Patient Tobacco Use Status: Never used Tobacco Substance Use Type: Marijuana service: No Physical Exam ED Vital Signs: Vital Signs - 24 hr 02/21/25 10:06 02/21/25 10:46 02/21/25 10:46 Temperature 97.8 F 97.6 F Pulse Rate 106 H 104 H 96 Respiratory Rate 16 18 15 Blood Pressure 146/103 H 162/115 H 151/103 H Pulse Oximetry 98 98 98 Oxygen Delivery Method Room Air Room Air Room Air 02/21/25 11:01 02/21/25 11:31 02/21/25 12:46 Temperature Pulse Rate 95 95 91 Respiratory Rate 16 20 13 Blood Pressure 156/92 H 157/107 H 149/94 H Pulse Oximetry 98 96 99 Oxygen Delivery Method Room Air Room Air Room Air 02/21/25 13:16 02/21/25 14:28 02/21/25 16:04 Temperature 98.1 F 97.9 F Pulse Rate 89 90 97 Respiratory Rate 16 18 20 Blood Pressure 138/94 H 139/100 H 139/94 H Pulse Oximetry 98 94 98 Oxygen Delivery Method Room Air Room Air Room Air BMI result Body Mass Index 30.0 hypertensive, tachycardic General: Well appearing, in no acute distress. Skin: Warm, dry, intact. No rashes or lesions. Head: Normocephalic, atraumatic. EENT: Hearing is intact b/l. Conjunctiva clear. PERRLA. EOM intact. Moist mucous membranes.? Neck: Supple without LAD Cardiac: Chest wall symmetric. RRR Lungs: Normal respiratory effort without accessory muscle use. CTA bilaterally Abdomen: Soft, nondistended, tender to palpation of epigastric region and right upper quadrant, negative Bonner's sign. Active bowel sounds x4. no cvat. Ext: Upper and lower extremities atraumatic, without tenderness, deformity, swelling or erythema Neuro: AOx3. Normal speech. Strength 5/5 intact throughout. Sensation intact to light touch. NV intact distally. Ambulating with steady gait. Psych: Appropriate mood and affect. Responds appropriately to questions. Course Course Course Narrative: CBC with slight leukocytosis to 11.7 without left shift. Likely reactive secondary to vomiting. H&H stable. Chemistry showing hypokalemia to 3.1. Liver function around baseline. No SHANTELLE. Troponin WNL. Given length of symptoms to ED presentation, delta trop not warranted. EKG showing normal sinus rhythm, rate of 99 beats per minute, no acute ischemic changes or ST elevations. Negative COVID, flu, RSV. Abdominal ultrasound without evidence of cholelithiasis or thickening of gallbladder wall. No biliary ductal dilation. Hepatomegaly and hepatic steatosis, consistent with prior scans. There is a nonobstructing 2 mm intrarenal calculi without evidence of hydronephrosis. > patient reports significant improvement in symptoms after receiving IV fluids, Toradol, Valium and Zofran. Tolerating PO. Potassium repleted. Blood pressure has significantly improved, now 139/94. Will send home with Zofran. Patient has remained stable throughout ED visit today. Discussed worrisome signs and symptoms and when to return to the ED. All questions answered at this time. Patient is agreeable with disposition and stable for discharge. Medical Decision Making Medical Decision Making MDM Narrative: 34 year old female presents to the ED today for evaluation of GERD, HTN, peripheral neuropathy, and mood disorder presents to the ED today for evaluation of nausea, vomiting, and epigastric abdominal pain x5 days. Hypertensive, tachycardic, afebrile. She is nontoxic-appearing and in no acute distress. On exam, abdomen is soft, nondistended, mildly tender to palpation of epigastric and right upper quadrant. Negative Bonner's sign. Active bowel sounds x4. No CVAT bilaterally. Exam nonfocal. PERRLA. Differential diagnosis includes anemia, electrolyte abnormality, biliary colic, renal colic, nephrolithiasis, gastroenteritis, gastritis, PUD. Abdominal exam without peritoneal signs. No evidence of acute abdomen at this time. Well appearing. Moderate suspicion for acute hepatobiliary disease (including acute cholecystitis). Less likely to represent acute pancreatitis, perforated ulcer/ GI bleed, acute infectious processes (pneumonia, hepatitis, pyelonephritis), atypical appendicitis, vascular catastrophe, bowel obstruction or viscus perforation. Presentation not consistent with other acute, emergent causes of abdominal pain at this time. Plan: labs, ekg, pain control, IVF, RUQ US, serial reassessment Differential Diagnosis Differential Diagnoses: The differential diagnosis associated with the presentation includes as above. Admission/Observation Not indicated Lab Data MDM Lab Attestation statement: I reviewed the patient's lab results. as above. 02/21/25 11:03 02/21/25 11:03 Labs: Lab Results 02/21/25 02/21/25 Range/Units 11:03 13:46 WBC 11.7 H (4.8-10.8) X10*3/uL RBC 4.16 L D (4.20-5.50) X10*6/uL Hgb 15.4 D (12.0-16.0) g/dl Hct 43.3 D (37.0-47.0) % MCV 104.1 H (80.0-98.0) fL MCH 37.0 H (27.0-33.0) pg MCHC 35.6 H (31.0-35.0) g/dl RDW 17.0 H (11.0-16.0) % Plt Count 279 (160-400) X10*3/uL MPV 9.4 (9.4-12.3) fL Immature Gran % (Auto) 0.9 H (0.0-0.4) % Neut % (Auto) 79.3 H (45-73) % Lymph % (Auto) 13.1 L (20-40) % [place] % (Auto) 5.8 (2-11) % Eos % (Auto) 0.4 (0-4) % Baso % (Auto) 0.5 (0-2) % Lymph # (Auto) 1.5 (1.2-4.9) X10*3/uL [place] # (Auto) 0.7 (0.1-1.2) X10*3/uL Eos # (Auto) 0.1 (0.0-0.4) X10*3/uL Baso # (Auto) 0.1 (0.0-0.2) X10*3/uL Abs Immat Gran (auto) 0.10 H (0.00-0.03) X10*3/uL Absolute Neuts (auto) 9.3 H (2.0-8.3) x10*3/uL Absolute Nucleated RBC 0.000 (0.0-0.012) X10*3/uL Nucleated RBC % (auto) 0.0 (0.0-0.2) /100WBC Sodium 140 (135-145) mmol/L Potassium 3.1 L (3.3-5.1) mmol/L Chloride 95 L (96-108) mmol/L Carbon Dioxide 29 (22-29) mmol/L Anion Gap 19 (12-20) BUN 7 L (9-16) mg/dL Creatinine 0.58 (0.5-1.4) mg/dL Estim Creat Clear Calc 146.7 Estimated GFR > 60 Random Glucose 115 (60-115) mg/dL Calcium 9.9 D (8.4-10.2) mg/dL Total Bilirubin 1.8 H (0.0-1.0) mg/dL Direct Bilirubin 0.5 (0.0-0.5) mg/dL AST 171 H (5-31) U/L ALT 51 H (0-31) U/L Alkaline Phosphatase 141 H (39-117) U/L Troponin I High Sens 2.9 (<3.5-17.0) ng/L Total Protein 7.9 (6.5-8.0) g/dL Albumin 4.4 (3.5-5.0) g/dL Lipase 10 (8-78) U/L Influenza Type A (PCR) NEGATIVE (Negative) Influenza Type B (PCR) NEGATIVE (Negative) RSV RNA Qual (PCR) NEGATIVE (Negative) SARS-CoV-2 RNA (RT-PCR) NEGATIVE (Negative) Independent Interpretation I performed an independent interpretation of an: EKG and Ultrasound Interpretation: EKG showing normal sinus rhythm, rate of 99 beats per minute, no acute ischemic changes or ST elevation Right upper quadrant ultrasound without noted gallstones or shadowing, no gallbladder wall thickening Radiology Impression Discussion of test interpretation with radiology: I have reviewed the radiologist's reading. Radiologist Impression: Procedure(s): US abdomen limited Accession Number(s): [id number] cc: MAGALI HERMAN MD; Katrin South~ CLINICAL HISTORY: RUQ epigastric pain vomiting --- Additional Notes or Special Instructions: look at GB, ducts, liver, pancreas US ABDOMEN LIMITED Comparison: US/SR - US ABDOMEN LIMITED - 01/22/23 09:11 EDT Findings: Visualized portions of the pancreas appear unremarkable. The tail is obscured by bowel gas. The right hepatic lobe measures 18 cm. The liver is heterogeneous and echogenic. There is no intrahepatic bile duct dilatation. Common bile duct measures 3.6 mm. The gallbladder is normal. There is no sonographic Bonner sign. The main portal vein is antegrade. Right kidney measures 10.8 cm in length. No hydronephrosis. There is a 2 mm calculus. There is a 7 mm midpole cyst. No ascites. IMPRESSION: 1. No cholelithiasis or acute cholecystitis. 2. No biliary ductal dilatation. 3. Hepatomegaly and hepatic steatosis. 4. No right hydronephrosis. Nonobstructing 2 mm intrarenal calculus. Tiny cyst. This document has been electronically signed by: Norma Betancur DO on 02/21/2025 14:03:45 External Record Review External record reviewed: Inpatient record Prescription Management I considered prescription management with: Other (zofran) Chronic Conditions Patient?s care impacted by: Hypertension Social Determinants Patient?s care significantly limited by Social Determinants of Health including: Other Social Determinant of Health Medications Administered Discontinued Medications Generic Name Dose Route Start Last Admin Trade Name Freq PRN Reason Stop Dose Admin Diazepam 2.5 mg 02/21/25 11:28 02/21/25 11:52 Diazepam 10 Mg/2 Ml Cartridge IVPUSH 02/21/25 11:29 2.5 mg STAT STA Administration Sodium Chloride 1,000 mls @ 999 mls/hr 02/21/25 11:30 02/21/25 12:53 Ns IV 02/21/25 12:30 Infused .Q1H1M ISAAK Infusion Potassium Chloride 10 meq in 100 mls @ 100 mls/hr 02/21/25 13:15 02/21/25 15:18 Potassium Chloride/H20 IV 02/21/25 15:14 100 mls/hr Q1H ISAAK Administration Ketorolac Tromethamine 30 mg 02/21/25 11:28 02/21/25 11:51 Ketorolac Tromethamine 30 Mg/Ml Vial IVPUSH 02/21/25 11:29 30 mg ONCE ONE Administration Ondansetron HCl 4 mg 02/21/25 11:28 02/21/25 11:52 Ondansetron Hcl 4 Mg/2 Ml Vial IVPUSH 02/21/25 11:29 4 mg ONCE ONE Administration Potassium Chloride 40 meq 02/21/25 13:04 02/21/25 14:00 Potassium Chloride Packet 20 Meq Packet PO 02/21/25 13:05 40 meq ONCE ONE Administration Critical Care Time Critical Care Time Critical Care Time: No Discharge Plan Discharge Clinical Impression: Abdominal pain, Hypokalemia, Hepatic steatosis Patient Disposition: Home, Self-Care Instructions: Liver Disease Diet (DC), Potassium Content of Foods List (ED), Hypokalemia (ED), Abdominal Pain (ED) Additional Instructions: Your workup today is reassuring. Your blood work showed low levels of potassium. This may have been due to vomiting. Your potassium was repleted in the ED today. Please follow up with your primary care provider to have your levels rechecked in a few weeks to ensure that they stay normal. Zofran is an antinausea medication sent to pharmacy for your nausea. I recommend Motrin as needed for pain/discomfort. Avoid Tylenol. Follow up with GI doctor. I have provided you with a referral. Call them to establish care. They will not call you. Additionally, your blood pressure was elevated in the ED today. This is likely around your baseline. Please monitor your blood pressures at home, document every other day. Follow up with your primary care provider as they may need to restart your blood pressure medications. Follow up with outpatient providers. Return with new or worsening symptoms. In the case of an emergency call 911. Prescriptions: New ondansetron 4 mg tablet,disintegrating 4 mg PO DAILY PRN (Reason: nausea and vomiting) 5 Days Qty: 10 0RF No Action duloxetine 60 mg capsule,delayed release(DR/EC) 60 mg PO DAILY metoprolol succinate 25 mg tablet extended release 24 hr 25 mg PO DAILY alpha lipoic acid 600 mg capsule 600 mg PO DAILY dextroamphetamine-amphetamine 20 mg tablet 1 tab PO DAILY cyanocobalamin (vitamin B-12) 1,000 mcg tablet 1,000 mcg PO DAILY folic acid 1 mg tablet 1 mg PO DAILY Referrals: Magali Herman MD [Primary Care Provider] - Interventions: ED Discharge Assessment Last Done: 02/21/25 16:40 Discharge Date/Time: 02/21/25 16:41 Print Language: Danish
[2025-02-21 11:07] LABS: MANUAL DIFF FLAG NO
[2025-02-21 11:09] LABS: Basophils Absolute Auto 0.1 X10*3/uL (0.0-0.2); Basophils Percent Auto 0.5 % (0-2); Eosinophils Absolute Auto 0.1 X10*3/uL (0.0-0.4); Eosinophils Percent Auto 0.4 % (0-4); Hematocrit 43.3 % (37.0-47.0); Hemoglobin 15.4 g/dl (12.0-16.0); Imm Gran Pct Auto 0.9 % (0.0-0.4); Lymphocytes Absolute Auto 1.5 X10*3/uL (1.2-4.9); Lymphocytes Percent Auto 13.1 % (20-40); Mean Corpuscular HGB Conc 35.6 g/dl (31.0-35.0); Mean Corpuscular Volume 104.1 fL (80.0-98.0); Mean Platelet Volume 9.4 fL (9.4-12.3); Monocytes Absolute Auto 0.7 X10*3/uL (0.1-1.2); Monocytes Percent Auto 5.8 % (2-11); Neutrophils Absolute Auto 9.3 x10*3/uL (2.0-8.3); Neutrophils Percent Auto 79.3 % (45-73); Platelet Count 279 X10*3/uL (160-400); Red Blood Count 4.16 X10*6/uL (4.20-5.50); White Blood Count 11.7 X10*3/uL (4.8-10.8)
--- NOTE | 2025-02-21 11:16 | ECG_ITS ---
Test Reason : HTN Blood Pressure : */* mmHG Vent. Rate : 99 BPM Atrial Rate : 99 BPM P-R Int : 136 ms QRS Dur : 90 ms QT Int : 378 ms P-R-T Axes : 14 26 -12 degrees QTcB Int : 485 ms Normal sinus rhythm Possible Left atrial enlargement Nonspecific ST and T wave abnormality Abnormal ECG When compared with ECG of 12-Dec-2024 21:44, No significant change was found Referred By: Katrin South Electronically Signed By: Chaparro Aden
[2025-02-21 11:36] LABS: Alanine Aminotransferase 51 U/L (0-31); Albumin Level 4.4 g/dL (3.5-5.0); Alkaline Phosphatase 141 U/L (39-117); Anion Gap 19 (12-20); Aspartate Amino Transferase 171 U/L (5-31); Bilirubin Direct 0.5 mg/dL (0.0-0.5); Bilirubin Total 1.8 mg/dL (0.0-1.0); Blood Urea Nitrogen 7 mg/dL (9-16); Calcium 9.9 mg/dL (8.4-10.2); Carbon Dioxide 29 mmol/L (22-29); Chloride 95 mmol/L (96-108); Creatinine Clr Calc Pharmacy 146.7; Estimated Glomerular Filt Rate > 60; Glucose Random 115 mg/dL (60-115); Lipase 10 U/L (8-78); Potassium 3.1 mmol/L (3.3-5.1); Sodium 140 mmol/L (135-145); Total Protein 7.9 g/dL (6.5-8.0)
[2025-02-21 11:42] LABS: Troponin-I High Sensitivity 2.9 ng/L (<3.5-17.0)
[2025-02-21] MEDS: Ketorolac Tromethamine 30 MG/ML VIAL IVPUSH (11:51)
[2025-02-21] MEDS: ondansetron HCL 4 MG/2 ML VIAL IVPUSH (11:52)
[2025-02-21] MEDS: 0.9 % Sodium Chloride 1,000 ML 999 ML IV (11:52)
[2025-02-21] MEDS: diazePAM 10 MG/2 ML CARTRIDGE 2.5 MG IVPUSH (11:52)
[2025-02-21] MEDS: Potassium Chloride Packet 20 MEQ PACKET 40 MEQ PO (14:00)
[2025-02-21] MEDS: Potassium Chloride/H20 10 MEQ/100 ML PIGGYBACK 100 MEQ IV ×2 (14:10→15:18)
[2025-02-21 14:30] LABS: Influenza A PCR NEGATIVE (Negative); Influenza B PCR NEGATIVE (Negative); Resp Syncy Virus RNA Qual PCR NEGATIVE (Negative); SARS COV2 PCR INHOUSE NEGATIVE (Negative)
== END 2025-02-21 16:41 | disposition home or self-care (01) ==
PROVIDERS: Physician Assistant Medical; Emergency Provider Emergency Medicine; PCP Internal Medicine
DX: E87.6 Hypokalemia (principal); K76.0 Fatty (change of) liver, not elsewhere classified; R10.11 Right upper quadrant pain; I10 Essential (primary) hypertension; R11.2 Nausea with vomiting, unspecified; F39 Unspecified mood [affective] disorder; Z79.899 Other long term (current) drug therapy; Z03.818 Encounter for observation for suspected exposure to other biological agents ruled out
CPT/HCPCS: 0241U; 36415; 76705; 80048; 80076; 83690; 84484; 85025; 93005; 96361; 96365; 96375; 99284; 99285; J1885; J2405; J3360; J3480

== ENCOUNTER → 2025-02-21 11:16 | Outpatient (BNV) | payer OTHER, SELFPAY | PROVIDERS: Emergency Provider Emergency Medicine; PCP Internal Medicine; Visit Provider Internal Medicine Cardiovascular Disease | DX: R94.31 Abnormal electrocardiogram [ECG] [EKG] (principal); I10 Essential (primary) hypertension | CPT/HCPCS: 93010 ==

== ENCOUNTER → 2025-02-21 13:04 | Outpatient (BNV) | payer OTHER, SELFPAY | PROVIDERS: Emergency Provider Emergency Medicine; PCP Internal Medicine; Visit Provider Radiology Diagnostic Radiology | DX: R10.11 Right upper quadrant pain (principal) | CPT/HCPCS: 76705 ==

== ENCOUNTER 2025-08-01 12:03 | Emergency (ER) | payer OTHER, SELFPAY ==
[2025-08-01 12:13] VITALS: BP 164/101; PULSE 98; RESP 18; TEMP 36.8; O2SAT 99; BMI 28.0
--- NOTE | 2025-08-01 12:19 | ECG_ITS ---
Test Reason : abdominal pain Blood Pressure : */* mmHG Vent. Rate : 82 BPM Atrial Rate : 82 BPM P-R Int : 112 ms QRS Dur : 86 ms QT Int : 402 ms P-R-T Axes : -5 34 36 degrees QTcB Int : 469 ms Normal sinus rhythm Normal ECG When compared with ECG of 21-Feb-2025 11:40, Nonspecific T wave abnormality has replaced inverted T waves in Inferior leads Referred By: Orlando Mejia Electronically Signed By: MEERA LIU MD
--- NOTE | 2025-08-01 12:21 | ED_ITS ---
HPI - Nausea/Vomiting/Diarrhea General Chief complaint: Nausea/Vomiting/Diarrhea Stated complaint: vomiting since wed Time Seen by Provider: 08/01/25 13:46 History of Present Illness ED Provider: Henry MADRID Narrative: The patient is a 35-year-old female. She has a history of polyneuropathy and is on pregabalin. She is also on a variety of nutritional supplements including folic acid for her polyneuropathy. She has a history of having had an episode of significant gastritis associated with vomiting and a Kasey-Goel tear. She was hospitalized for this reason in October of 2022. She says that after that episode she was on omeprazole for awhile but ultimately she stopped taking omeprazole regularly and has not taken any omeprazole for a long time. The patient presents with 5 days of worsening nausea and vomiting. Yesterday she also began to experience abdominal pain across her upper abdomen. Today she felt that she was unable to keep anything down and so she came to the hospital. No definite fever. No significant diarrhea. No recent travel. Related Data Home Medications ?Medication ?Instructions ?Recorded ?Confirmed alpha lipoic acid 600 mg capsule 600 mg PO DAILY 11/1712/13/24 duloxetine 60 mg capsule,delayed 60 mg PO DAILY 11/28/22 release metoprolol succinate 25 mg 25 mg PO DAILY 11/17/2211/19 tablet,extended release 24 hr cyanocobalamin (vitamin B-12) 1,000 mcg PO DAILY 01/1112/13/24 1,000 mcg tablet folic acid 1 mg tablet 1 mg PO DAILY 01/11/2312/13 dextroamphetamine-amphetamine 20 1 tab PO DAILY 12/13/24 mg tablet Previous Rx's ?Medication ?Instructions ?Recorded ondansetron 4 mg disintegrating 4 mg PO DAILY PRN naus ea and 02/21/25 tablet vomiting 5 days #10 tabs omeprazole 40 mg capsule,delayed 40 mg PO DAILY #30 ca ps 08/01/25 release ondansetron 4 mg disintegrating 4 mg PO Q6H PRN nausea and 08/01/25 tablet vomiting #10 tabs sucralfate 1 gram tablet 1 g PO TID PRN upper abdomin al 08/01/25 pain #60 tabs Allergies Allergy/AdvReac Type Severity Reaction Status Date / Time peanut (PEANUT) Allergy Intermediate ITCHINESS Verified 08/01/25 12:16 Review of Systems 2 Review of Systems: Yes all other systems are reviewed and are negative FOR[facility], [facility] Past Medical History Medical History GERD (gastroesophageal reflux disease) Peripheral neuropathy Mood disorder Hypertension Surgical History No history of previous surgery Social History Social History Household Members: Family Housing: Apartment Do you presently have visiting nurse or other home services: No Alcohol intake: current Alcohol intake frequency: a few times a month Alcohol type: beer Patient Tobacco Use Status: Never used Tobacco Smoked in Last 30 Days: No Use of substances other than those prescribed or required for medical reasons: No Substance Use Type: Marijuana Advance Directives: No Advance Directives Information Provided: Yes Do you have a plan to hurt others: No Plan service: No Physical Exam 2 Vital Signs: Vital Signs: Last Vital Signs Temp 98.2 F 08/01/25 17:49 Pulse 97 08/01/25 17:49 Resp 16 08/01/25 17:49 BP 127/89 08/01/25 17:49 Pulse Ox 99 08/01/25 17:49 O2 Del Method Room Air 08/01/25 17:49 BMI result Body Mass Index 28.0 Const: Other: The patient is 35-year-old female who was awake and alert. She looks mildly unwell but not acutely toxic or severely ill. Orientation/consciousness: patient oriented x3 HEENT: Other: The face is symmetrical. ?Mucous membranes moist. Eyes: Other: Pupils are round equal, conjunctivae are clear, extraocular movements intact Neck: Neck: Yes normal visual inspection and Yes full ROM Resp: Effort & Inspection: normal respiratory effort Auscultation: clear to auscultation bilaterally Cardio: Other: No murmur heard Rate: regular rate Rhythm: regular rhythm Heart sounds: S1 normal heart sound present and S2 normal heart sound present GI: Other: Abdomen is soft. I really did not appreciate any abdominal tenderness. No Bonner's sign. : General: Yes no CVA tenderness Back/Spine/Pelvis: Back: no CVA tenderness Skin: Other: The skin is dry and unremarkable Neuro: General: patient oriented x3, tone normal, moves all extremities, no focal motor deficits and CN's II-XI intact bilaterally Extrem: Other: There is no calf swelling or tenderness. No asymmetry. No peripheral edema. Course Course Course Narrative: RmE: 35 yold female presents to the ED for vomitiing and abdominal pain. Patient denies any symptoms. labs ordered. Medications Administered Discontinued Medications Generic Name Dose Route Start Last Admin Trade Name Braulio PRN Reason Stop Dose Admin Al Hydroxide/Mg Hydroxide 60 ml 08/01/25 16:13 08/01/25 16:17 Magnesium Hydrox/Alum Hydrox 30 Ml Oral.Susp PO 08/01/25 16:14 60 ml ONCE ONE Administration Droperidol 1.25 mg 08/01/25 14:00 08/01/25 14:08 Droperidol 5 Mg/2 Ml Vial IVPUSH 08/01/25 14:01 1.25 mg ONCE ONE Administration Famotidine 20 mg 08/01/25 14:00 08/01/25 14:08 Famotidine/Pf 20 Mg/2 Ml Vial IVPUSH 08/01/25 14:01 20 mg ONCE ONE Administration Sodium Chloride 1,000 mls @ 999 mls/hr 08/01/25 14:15 08/01/25 15:19 Ns IV 08/01/25 15:15 Infused .Q1H1M ISAAK Infusion Acetaminophen 1,000 mg in 100 mls @ 400 mls/hr 08/01/25 14:02 08/01/25 14:32 Ofirmev IV 08/01/25 14:16 Infused ONCE ONE Infusion Lactated Ringer's 1,000 mls @ 999 mls/hr 08/01/25 16:15 08/01/25 17:41 Lr IV 08/01/25 17:15 Infused .Q1H1M ISAAK Infusion Sucralfate 1 gm 08/01/25 15:16 08/01/25 15:25 Sucralfate Oral Suspension 1 Gm/10 Ml Oral.Susp PO 08/01/25 15:17 1 gm ONCE ONE Administration Medical Decision Making Medical Decision Making MDM Narrative: The patient is a 35-year-old female. She seems to have had a significant episode of gastritis a few years ago when she was hospitalized after vomiting with some blood and was found to have Kasey-Goel tears. She has been on omeprazole for awhile but has not been on omeprazole for at least many months or possibly longer. She presents with several days of epigastric discomfort and nausea and vomiting. She has a very benign abdomen. I think her description of her symptoms are most suggestive of case of gastritis with vomiting. She was treated symptomatically with improvement. She ultimately felt considerably better after getting droperidol and famotidine and sucralfate and IV fluids. She will be discharged with a prescription for omeprazole and also for sucralfate and ondansetron. She should contact her PCP tomorrow for a follow up appointment. Return if worse. Lab Data 08/01/25 12:26 08/01/25 12:26 Labs: Lab Results 08/01/25 08/01/25 Range/Units 12: 15:34 WBC 9.1 (4.8-10.8) X10*3/uL RBC 3.51 L (4.20-5.50) X10*6/uL Hgb 14.6 (12.0-16.0) g/dl Hct 38.9 (37.0-47.0) % MCV 110.8 H (80.0-98.0) fL MCH 41.6 H (27.0-33.0) pg MCHC 37.5 H (31.0-35.0) g/dl RDW 12.3 (11.0-16.0) % Plt Count 278 (160-400) X10*3/uL MPV 10.1 (9.4-12.3) fL Immature Gran % (Auto) 0.6 H (0.0-0.4) % Neut % (Auto) 78.4 H (45-73) % Lymph % (Auto) 14.0 L (20-40) % [place] % (Auto) 6.4 (2-11) % Eos % (Auto) 0.3 (0-4) % Baso % (Auto) 0.3 (0-2) % Lymph # (Auto) 1.3 (1.2-4.9) X10*3/uL [place] # (Auto) 0.6 (0.1-1.2) X10*3/uL Eos # (Auto) 0.0 (0.0-0.4) X10*3/uL Baso # (Auto) 0.0 (0.0-0.2) X10*3/uL Abs Immat Gran (auto) 0.05 H (0.00-0.03) X10*3/uL Absolute Neuts (auto) 7.1 (2.0-8.3) x10*3/uL Absolute Nucleated RBC 0.000 (0.0-0.012) X10*3/uL Nucleated RBC % (auto) 0.0 (0.0-0.2) /100WBC Smear Path Review SEE NOTE PT 11.9 (10.9-12.4) SEC INR 1.0 (0.9-1.1) APTT 25.8 L (26.7-34.1) SEC Sodium 137 (135-145) mmol/L Potassium 3.6 (3.3-5.1) mmol/L Chloride 101 (96-108) mmol/L Carbon Dioxide 24 (22-29) mmol/L Anion Gap 16 (12-20) BUN 8 L (9-16) mg/dL Creatinine 0.49 L (0.5-1.4) mg/dL Estim Creat Clear Calc 166.3 Estimated GFR > 60 Random Glucose 118 H (60-115) mg/dL Calcium 9.6 (8.4-10.2) mg/dL Total Bilirubin 1.6 H (0.0-1.0) mg/dL Direct Bilirubin 0.5 (0.0-0.5) mg/dL AST 42 H (5-31) U/L ALT 22 (0-31) U/L Alkaline Phosphatase 112 (39-117) U/L Troponin I High Sens < 2.7 (<3.5-17.0) ng/L C-Reactive Protein 1.57 H (< or = 0.50) mg/dL Total Protein 7.6 (6.5-8.0) g/dL Albumin 4.4 (3.5-5.0) g/dL Lipase 10 (8-78) U/L Beta HCG, Quant < 2 mIU/mL Urine Color Yellow Urine Appearance Clear Urine pH 6.5 (5.0-9.0) Ur Specific [place] >= 1.030 H (1.005-1.025) Urine Protein Trace (Neg-Trace) mg/dL Urine Glucose (UA) Negative (Negative) mg/dL Urine Ketones 15 (Negative) mg/dL Urine Blood Negative (Negative) Urine Nitrite Negative (Negative) Ur Leukocyte Esterase Negative (Negative) Discharge Plan Discharge Clinical Impression: Vomiting, Acute upper abdominal pain, Gastritis Patient Disposition: Home, Self-Care Instructions: Gastritis (ED) Additional Instructions: I think your symptoms today suggest a return of gastritis. This is an irritation of the lining of the stomach that is considered related to stomach acid issues. Please take the omeprazole once a day. This will reduce stomach acid production. You may use the sucralfate on an as-needed basis up to 3 times a day. There is also a prescription for ondansetron which you may use as needed for nausea. Please contact your regular doctor's office tomorrow for a follow up appointment to discuss this episode further. Return to the emergency room if you feel significantly worse. Prescriptions: New ondansetron 4 mg tablet,disintegrating 4 mg PO Q6H PRN (Reason: nausea and vomiting) Qty: 10 0RF omeprazole 40 mg capsule,delayed release(DR/EC) 40 mg PO DAILY Qty: 30 0RF sucralfate 1 gram tablet 1 g PO TID PRN (Reason: upper abdominal pain) Qty: 60 0RF No Action duloxetine 60 mg capsule,delayed release(DR/EC) 60 mg PO DAILY metoprolol succinate 25 mg tablet extended release 24 hr 25 mg PO DAILY alpha lipoic acid 600 mg capsule 600 mg PO DAILY dextroamphetamine-amphetamine 20 mg tablet 1 tab PO DAILY ondansetron 4 mg tablet,disintegrating 4 mg PO DAILY PRN (Reason: nausea and vomiting) 5 Days Qty: 10 0RF cyanocobalamin (vitamin B-12) 1,000 mcg tablet 1,000 mcg PO DAILY folic acid 1 mg tablet 1 mg PO DAILY Referrals: Magali Calabrese MD [Primary Care Provider, Medical] Stand Alone Forms: Work/School Release Interventions: ED Discharge Assessment Last Done: 08/01/25 17:49 Discharge Date/Time: 08/01/25 17:49 Print Language: Amharic
--- NOTE | 2025-08-01 12:23 | MHC.EDTECH ---
attempted to do ekg called into the waiting room/ No one responded
[2025-08-01 12:44] LABS: MANUAL DIFF FLAG NO
[2025-08-01 12:49] LABS: Hematocrit 38.9 % (37.0-47.0); Hemoglobin 14.6 g/dl (12.0-16.0); Imm Gran Abs Auto 0.05 X10*3/uL (0.00-0.03); Imm Gran Pct Auto 0.6 % (0.0-0.4); Lymphocytes Absolute Auto 1.3 X10*3/uL (1.2-4.9); Mean Corpuscular HGB Conc 37.5 g/dl (31.0-35.0); Mean Corpuscular Hemoglobin 41.6 pg (27.0-33.0); Mean Corpuscular Volume 110.8 fL (80.0-98.0); NRBC Abs Auto 0.000 X10*3/uL (0.0-0.012); NRBC Pct Auto 0.0 /100WBC (0.0-0.2); Platelet Count 278 X10*3/uL (160-400); Red Blood Count 3.51 X10*6/uL (4.20-5.50); White Blood Count 9.1 X10*3/uL (4.8-10.8)
[2025-08-01 12:53] LABS: INTERNATIONAL NORM RATIO 1.0 (0.9-1.1); Prothrombin Time 11.9 SEC (10.9-12.4)
[2025-08-01 12:55] LABS: Partial Thromboplastin Time 25.8 SEC (26.7-34.1)
[2025-08-01 13:24] LABS: Alanine Aminotransferase 22 U/L (0-31); Albumin Level 4.4 g/dL (3.5-5.0); Alkaline Phosphatase 112 U/L (39-117); Anion Gap 16 (12-20); Aspartate Amino Transferase 42 U/L (5-31); Blood Urea Nitrogen 8 mg/dL (9-16); Calcium 9.6 mg/dL (8.4-10.2); Carbon Dioxide 24 mmol/L (22-29); Chloride 101 mmol/L (96-108); Creatinine Clr Calc Pharmacy 166.3; Estimated Glomerular Filt Rate > 60; Lipase 10 U/L (8-78); Potassium 3.6 mmol/L (3.3-5.1); Sodium 137 mmol/L (135-145); Total Protein 7.6 g/dL (6.5-8.0); Troponin-I High Sensitivity < 2.7 ng/L (<3.5-17.0)
--- OUTSIDE RECORDS SUMMARY | 2025-08-01 13:38 | XMS_ITS | Clinical Summary ---
Author Organization [facility] Address [address] [place] [phone] Phone Care Team Providers Care Flaker Operator Name Role Phone Unavailable Primary Care Provider Unavailabl e Immunizations Immunization Administration Dates Next Due DTP 06/07/1993, 0,1988,08/02,1988 Hep B, ped/adol 08/01/2000,03/06/2000,01/31/2000 Hib (PRP-T) 05/07/1990 MMR 04/23/2000,11/18/1989 Meningococcal Conj (Menactra) MCV4P 06/27/2007 OPV 06/07/1993, 0,1988,05/29 Td (adult) (MBL), 2 Lf tetan us toxoid, PF, adsorbed 04/23/2000 Tdap 06/27/2007 Social History Tobacco Use Types Packs/Day Years Used Date Smoking Tobacco: Never Assessed Comments Unknown Sex and Gender Information Value Date Recorded Sex Assigned at Not on file Legal Sex Female 4:51 PM EDT Gender Identity Not on file Sexual Orientation Not on file Plan of Treatment Health Maintenance Due Date Last Done Comments Varicella Vaccines (1 of 2 - 13+ 2-dose series) 2001 HPV Vaccines (1 - 3-dose SCDM series) 2015 DTaP,Tdap,and Td Vaccines (7 - Td or Tdap) 06/27/2017 06/27/2007, 04/23/2000, 06/07/1993, Additional history exists Influenza Vaccines (#1) 2025 COVID-19 Vaccine ( - 2024- season) 2025 HIB Vaccines Completed 05/07/1990 IPV Vaccines Completed 06/07/1993, 10/29, 1988, Additional history exists MMR Vaccines Completed 04/23/2000, 11/18/1989 Hepatitis B Vaccines Completed 08/01/2000, 03/06/2000, 01/31/2000 Meningococcal Vaccine Aged Out 06/27/2007 No shae valerie eligible based on patient's age to complete this topic Hepatitis A Vaccines Aged Out No long er eligible based on patient's age to complete this topic Men B Vaccine Aged Out No longer elig ible based on patient's age to complete this topic Pneumococcal Vaccine Aged Out No long er eligible based on patient's age to complete this topic
--- OUTSIDE RECORDS SUMMARY | 2025-08-01 13:38 | XMS_ITS | Encounter Summary ---
Author Organization [facility] Address [address] [place] [phone] Phone Care Team Providers Care Jumpbasting Armhole Baster Name Role Phone Praveena Schreiber MD Primary Care Provider Encounter Details Date Type Department Care Team (Late st Contact Info) Description 06/13/2017 Conversion Encounter [facility] [place] [address] [place] [address] Social History Tobacco Use Types Packs/Day Years [...] on filedocumented in this encounter Care Teams Jumpbasting Armhole Baster Relationship Specialty Start Date End Date Praveena Schreiber MD [address] [place] [address] PCP - General 06/07/17 02/03/23 documented as of this encounter
[2025-08-01] MEDS: Sucralfate Oral Suspension 1 GM/10 ML ORAL.SUSP PO (15:25)
[2025-08-01 15:26] VITALS: BP 127/89; PULSE 97; RESP 16; O2SAT 99
[2025-08-01 15:42] LABS: Appearance Urine Clear; Glucose Urine UA Negative (Negative); PH 6.5 (5.0-9.0); Specific Gravity - Urine >= 1.030 (1.005-1.025)
[2025-08-01] MEDS: Magnesium Hydrox/Alum Hydrox 30 ML ORAL.SUSP 60 ML PO (16:17)
[2025-08-01] MEDS: Lactated Ringers 1,000 ML 999 ML IV (16:17)
[2025-08-01 17:49] VITALS: BP 127/89; PULSE 97; RESP 16; TEMP 36.8; O2SAT 99
== END 2025-08-01 17:49 | disposition home or self-care (01) ==
PROVIDERS: Physician Assistant; Emergency Provider Emergency Medicine; PCP Internal Medicine
DX: R11.10 Vomiting, unspecified (principal); K29.70 Gastritis, unspecified, without bleeding; R10.9 Unspecified abdominal pain; Z79.899 Other long term (current) drug therapy
CPT/HCPCS: 36415; 80053; 81003; 82248; 83690; 84484; 84702; 85025; 85610; 85730; 86140; 93005; 96361; 96365; 96375; 99284; 99285; J0131; J1308; J1790; J7120

== ENCOUNTER → 2025-08-01 12:19 | Outpatient (BNV) | payer OTHER, SELFPAY | PROVIDERS: Emergency Provider Emergency Medicine; PCP Internal Medicine; Visit Provider Internal Medicine Cardiovascular Disease | DX: R10.10 Upper abdominal pain, unspecified (principal) | CPT/HCPCS: 93010 ==

== ENCOUNTER 2025-09-02 07:23 | Emergency (ER) | payer OTHER, SELFPAY ==
--- NOTE | ~2025-09-02 | CT_ITS ---
EXAMINATION: CT ABDOMEN AND PELVIS WITH CONTRAST CLINICAL INFORMATION: Abdominal pain. COMPARISON: 01/14/2023. Abdomen ultrasound 02/21/2025. TECHNIQUE: Multidetector volumetric images were obtained from the superior aspect of the liver through the pubic symphysis following administration 85 mL of Omnipaque 350 intravenous contrast. Sagittal and coronal reformatted images were obtained on the technologist's workstation. Oral contrast: No This CT examination was performed using dose optimization techniques as appropriate, variously including the following: *Automated exposure control *Adjustment of mA and/or kV according to patient size (this includes techniques or standardized protocols for targeted exams where dose is matched to indication/reason for exam; i.e. extremities or head) *Use of iterative reconstruction technique FINDINGS: LUNG BASES: There is motion degradation.. Lung bases are grossly clear. There are no effusions. The heart size normal. Normal GE junction. LIVER, GALLBLADDER, AND BILIARY TREE: The liver is mildly enlarged with mild diffuse fatty infiltration. There is subtle surface lobulation. There is no suspicious focal lesion. There is no intrahepatic or extrahepatic biliary dilatation. The gallbladder is unremarkable with no evidence of radiopaque gallstones, gallbladder wall thickening, or obvious pericholecystic inflammatory changes. PANCREAS: Unremarkable. SPLEEN: Unremarkable. ADRENAL GLANDS: Unremarkable. KIDNEYS AND URETERS: The kidneys are normal in size, shape, and attenuation. No hydronephrosis, hydroureter, or calculi seen. No perinephric stranding. There is a 3 mm nonobstructing calculus in the upper pole of the left kidney. BLADDER: Unremarkable. GASTROINTESTINAL TRACT: There is mild diffuse wall thickening of the colon, with minimal associated hyperemia of the adjacent mesentery, findings suspicious for a pancolitis. The appendix is normal. Small bowel is normal in caliber, course, and appearance. The stomach is largely decompressed. The duodenal sweep is normal. There may be mild rectal wall thickening as well. ABDOMINAL WALL: No significant hernia is appreciated. LYMPH NODES: There is no abnormal lymphadenopathy present. VASCULAR: Unremarkable. PELVIC VISCERA: The uterus and adnexa are unremarkable. OSSEOUS STRUCTURES: No suspicious lytic or blastic bone lesion. There is a broad-based disc bulge with a central herniation at L5-S1. CT/CT abdomen pelvis w IV con IMPRESSION: 1. Findings suspicious for a mild gomez colitis. Would correlate with clinical presentation and symptomatology. This could be infectious or inflammatory in etiology. 2. No additional acute finding in the abdomen or pelvis. 3. Mild hepatomegaly with diffuse fatty infiltration. 4. There is a 3 mm nonobstructing calculus in the upper pole of the left kidney. Electronically signed by: Marcio Mendez MD 09/02/2025 10:52 AM [facility]
[2025-09-02 07:25] VITALS: BP 152/93; PULSE 86; RESP 15; TEMP 36.4; O2SAT 98; BMI 27.6
--- OUTSIDE RECORDS SUMMARY | 2025-09-02 07:39 | XMS_ITS | Clinical Summary ---
Author Organization [facility] Address [address] [place] [phone] Phone Care Team Providers Care Powerhouse Mechanic Helper Name Role Phone Unavailable Primary Care Provider [...]
--- OUTSIDE RECORDS SUMMARY | 2025-09-02 07:39 | XMS_ITS | Encounter Summary ---
Author Organization [facility] Address [address] [place] [phone] Phone Care Team Providers Care Ui Application Developer Name Role Phone Praveena Schreiber MD Primary Care Provider Encounter Details Date Type Department Care Team (Late st Contact Info) Description 06/13/2017 Conversion Encounter [facility] [place] [address] [place] [address] Social History Tobacco Use Types Packs/Day Years [...] on filedocumented in this encounter Care Teams Ui Application Developer Relationship Specialty Start Date End Date Praveena Schreiber MD [address] [place] [address] PCP - General 06/07/17 02/03/23 documented as of this encounter
[2025-09-02 07:57] LABS: MANUAL DIFF FLAG NO
[2025-09-02 07:58] LABS: Hematocrit 43.7 % (37.0-47.0); Hemoglobin 15.1 g/dl (12.0-16.0); Imm Gran Abs Auto 0.03 X10*3/uL (0.00-0.03); Imm Gran Pct Auto 0.3 % (0.0-0.4); Lymphocytes Absolute Auto 0.7 X10*3/uL (1.2-4.9); Mean Corpuscular HGB Conc 34.6 g/dl (31.0-35.0); Mean Corpuscular Hemoglobin 36.4 pg (27.0-33.0); Mean Corpuscular Volume 105.3 fL (80.0-98.0); NRBC Abs Auto 0.000 X10*3/uL (0.0-0.012); NRBC Pct Auto 0.0 /100WBC (0.0-0.2); Platelet Count 309 X10*3/uL (160-400); Red Blood Count 4.15 X10*6/uL (4.20-5.50); White Blood Count 10.7 X10*3/uL (4.8-10.8)
[2025-09-02 08:18] LABS: Alanine Aminotransferase 61 U/L (0-31); Albumin Level 5.2 g/dL (3.5-5.0); Alkaline Phosphatase 108 U/L (39-117); Anion Gap 17 (12-20); Aspartate Amino Transferase 57 U/L (5-31); Blood Urea Nitrogen 6 mg/dL (9-16); Calcium 10.1 mg/dL (8.4-10.2); Carbon Dioxide 25 mmol/L (22-29); Chloride 99 mmol/L (96-108); Creatinine Clr Calc Pharmacy 147.2; Estimated Glomerular Filt Rate > 60; Magnesium 1.6 mg/dL (1.6-2.6); Potassium 3.3 mmol/L (3.3-5.1); Sodium 138 mmol/L (135-145); Total Protein 8.4 g/dL (6.5-8.0)
[2025-09-02 08:30] VITALS: TEMP 36.8
--- NOTE | 2025-09-02 08:35 | ED.ABDPAIN ---
HPI - Abdominal Pain General Chief Complaint: Abdominal Pain Stated Complaint: abd pain Time Seen by Provider: 09/02/25 08:13 Source: patient, RN notes reviewed and old records reviewed Mode of arrival: ambulatory Limitations: no limitations History of Present Illness ED Provider: FRANNY Altamirano HPI narrative: 35-year-old female with medical history of GERD, peripheral neuropathy, HTN presents to the ED due to 2 days of worsening abdominal pain. Patient reports waking up Saturday morning with a sensation of ?sour stomach? that got progressively worse throughout the day causing her to leave work early. Patient states she started vomiting Saturday evening with pain and a sensation of pressure in the epigastric region of her abdomen that has been worsening over the past 2 days and associated with chills. Patient states she was seen in the department 1 month ago 07/2025 was diagnosed with gastritis, and discharged home with sucralfate, Zofran, and GI follow up at the end of this month. Patient states over the last 2 days she has been unable to tolerate fluids or food. Patient reports last bowel movement was 3 days ago on 08/30. Denies recent antibiotic use, recent travel, fevers, diarrhea, black/tarry stool Related Data Home Medications ?Medication ?Instructions ?Recorded ?Confirmed alpha lipoic acid 600 mg capsule 600 mg PO DAILY 11/17/22 12/13/24 duloxetine 60 mg capsule,delayed 60 mg PO DAILY 11/17/22 11/28/22 release metoprolol succinate 25 mg 25 mg PO DAILY 11/17/22 11/28/22 tablet,extended release 24 hr cyanocobalamin (vitamin B-12) 1,000 mcg PO DAILY 01/11/23 12/13/24 1,000 mcg tablet folic acid 1 mg tablet 1 mg PO DAILY 01/11/23 12/13/24 dextroamphetamine-amphetamine 20 1 tab PO DAILY 12/13/24 12/13/24 mg tablet Previous Rx's ?Medication ?Instructions ?Recorded ondansetron 4 mg disintegrating 4 mg PO DAILY PRN nausea and 02/21/25 tablet vomiting 5 days #10 tabs omeprazole 40 mg capsule,delayed 40 mg PO DAILY #30 caps 08/01/25 release ondansetron 4 mg disintegrating 4 mg PO Q6H PRN nausea and 08/01/25 tablet vomiting #10 tabs sucralfate 1 gram tablet 1 g PO TID PRN upper abdominal 08/01/25 pain #60 tabs ciprofloxacin HCl 500 mg tablet 500 mg PO Q12H #14 tabs 09/02/25 metronidazole 500 mg tablet 500 mg PO Q8H 7 days #21 tabs 09/02/25 Allergies Allergy/AdvReac Type Severity Reaction Status Date / Time peanut (PEANUT) Allergy Intermediate ITCHINESS Verified 09/02/25 07:28 Review of Systems Review of Systems CONST: Negative for fever, body aches and chills. HENT: Negative for neck pain/stiffness, headache, congestion, sore throat, swelling. EYES: Negative for discharge/pain or vision changes. RESP: Negative for cough/hemoptysis and shortness of breath. CV: Negative chest pain, difficulty breathing, palpitations. ABD: POS epigastic pain, nausea, vomiting. : Negative increase frequency, dysuria, blood in urine or stool. MUSC: Negative for muscle aches, edema. SKIN: Negative rash, lesions/sores. NEURO: Negative headache, dizziness, weakness. Yes all other systems are reviewed and are negative [facility] Past Medical History Attestation statement: The following information was validated with the patient. Source: old records reviewed and nursing notes reviewed Medical History GERD (gastroesophageal reflux disease) Peripheral neuropathy Mood disorder Hypertension Surgical History No history of previous surgery Social History Social History Household Members: Family Housing: Apartment Do you presently have visiting nurse or other home services: No Alcohol intake: current Alcohol intake frequency: holidays/special occasions only Alcohol type: beer Patient Tobacco Use Status: Never used Tobacco Smoked in Last 30 Days: No Substance Use Type: Marijuana Substance Use Frequency: Occasionally Advance Directives: Yes Advance Directives Information Provided: Yes Advance Directives on File: No Do you have a plan to hurt others: No Plan service: No Physical Exam ED Vital Signs: Vital Signs - 24 hr 09/02/25 07:25 09/02/25 08:30 09/02/25 09:56 Temperature 97.6 F 98.3 F Pulse Rate 86 75 Respiratory Rate 15 18 Blood Pressure 152/93 H 136/95 H Pulse Oximetry 98 100 Oxygen Delivery Method Room Air Room Air BMI result Body Mass Index 27.6 GENERAL APPEARANCE: ?AxOx4, nontoxic appearing, no acute distress. HEENT: ?NC, AT. MMM. EOMI, clear conjunctiva, oropharynx clear. NECK: ?Supple without lymphadenopathy.? No stiffness or restricted ROM. HEART:? Normal rate and regular rhythm, normal S1/S2, no m/r/g LUNGS:? CTAB, moving air well. No crackles or wheezes are heard. ABDOMEN: ?Soft, nondistended, no rigidity, no guarding, negative Bonner's sign, no rebound tenderness, mild TTP of the epigastric region, no overlying skin changes BACK: No CVAT, no obvious deformity. EXTREMITIES: ?Without cyanosis, clubbing or edema. NEUROLOGICAL: ?Grossly nonfocal. Alert and oriented, moving all 4 extremities. Observed to ambulate with normal gait. Skin: ?Warm and dry without any rash. Medical Decision Making Medical Decision Making MDM Narrative: 35-year-old female with medical history of GERD, peripheral neuropathy, HTN presents to the ED due to 2 days of worsening abdominal pain. Patient reports waking up Saturday morning with a sensation of ?sour stomach? that got progressively worse throughout the day causing her to leave work early. Patient states she started vomiting Saturday evening with pain and a sensation of pressure in the epigastric region of her abdomen. Patient states she was seen in the department 1 month ago 07/2025 was diagnosed with gastritis, and discharged home with sucralfate, Zofran, and GI follow up at the end of this month. Patient states over the last 2 days she has been unable to tolerate fluids or food. Patient reports last bowel movement was 3 days ago on 08/30. VS on initial observation-BP 136/95, pulse rate of 75, respiratory rate of 18, afebrile with oral temp of 98.3?, O2 saturation 100% on room air. On physical exam patient is nontoxic appearing, abdomen is soft, nondistended, no rigidity, no guarding, negative Bonner's sign, no rebound tenderness, mild TTP of the epigastric region, no overlying skin changes Labs without leukocytosis/leukopenia, H&H stable, elevated bilirubin of 1.8, with a mild transaminitis with an AST of 57, ALT of 61, beta hCG negative, no electrolyte abnormalities. Viral serology negative. UA with 1+ urine protein, trace urine ketones, trace leukocyte esterase, presence of crystals, without urine bacteria, no urinary symptoms, no indication for antibiotics at this time. On chart review patient has a history of hyperbilirubinemia and transaminitis, patient with history of VALLE, has history of alcohol use in the past, but has not drank in several years. Patient knows about these elevation and follows her primary care for management. CT abdomen and pelvis reveals mild pancolitis, mild hepatomegaly with diffuse fatty infiltration, and a 3 mm nonobstructing calculus in the upper pole of the left kidney. Patient presents with 1 month of abdominal pain, with 2 days of worsening abdominal pain. Due to patient returning to ED 4 weeks after her initial presentation with persistent abdominal pain, CT abdomen and pelvis was ordered for evaluation. CT abdomen and pelvis reveals mild pancolitis, and a 3 mm nonobstructing stone of the upper pole of the left kidney. Due to patient experiencing symptoms over the last 4 weeks, we will discharge home with a 7 day course of Flagyl, and ciprofloxacin for bacterial coverage. Patient has follow up with GI at the end of this month. I counseled patient that it is important for her to follow up with that appointment for further evaluation and management of her abdominal pain. I counseled patient to follow up with her primary care provider to ensure resolution of her symptoms after starting antibiotic therapy. I discussed hyperbilirubinemia and transaminitis with the patient, she will follow up with her primary care provider as she has been doing. Patient's symptoms have improved considerably after IV fluids, 4 mg IV Zofran, 25 mg Benadryl, 10 mg IV Reglan. Patient well enough to go home for self-care, I counseled patient on strict return precautions. Patient is in agreement with the plan. Differential Diagnosis Differential Diagnoses: The differential diagnosis associated with the presentation includes Ectopic Gastritis Diverticulitis Colitis UTI Admission/Observation Consideration of admission/observation: Escalation of care including admission/observation considered Lab Data MDM Lab Attestation statement: I reviewed the patient's lab results. 09/02/25 07:51 09/02/25 07:51 Labs: Lab Results 09/02/25 09/02/25 09/02/25 Range/Units 07:51 08:46 08:49 WBC 10.7 (4.8-10.8) X10*3/uL RBC 4.15 L (4.20-5.50) X10*6/uL Hgb 15.1 (12.0-16.0) g/dl Hct 43.7 (37.0-47.0) % MCV 105.3 H (80.0-98.0) fL MCH 36.4 H (27.0-33.0) pg MCHC 34.6 (31.0-35.0) g/dl RDW 15.4 (11.0-16.0) % Plt Count 309 (160-400) X10*3/uL MPV 9.7 (9.4-12.3) fL Immature Gran % (Auto) 0.3 (0.0-0.4) % Neut % (Auto) 89.1 H (45-73) % Lymph % (Auto) 6.5 L (20-40) % [place] % (Auto) 3.7 (2-11) % Eos % (Auto) 0.0 (0-4) % Baso % (Auto) 0.4 (0-2) % Lymph # (Auto) 0.7 L (1.2-4.9) X10*3/uL [place] # (Auto) 0.4 (0.1-1.2) X10*3/uL Eos # (Auto) 0.0 (0.0-0.4) X10*3/uL Baso # (Auto) 0.0 (0.0-0.2) X10*3/uL Abs Immat Gran (auto) 0.03 (0.00-0.03) X10*3/uL Absolute Neuts (auto) 9.5 H (2.0-8.3) x10*3/uL Absolute Nucleated RBC 0.000 (0.0-0.012) X10*3/uL Nucleated RBC % (auto) 0.0 (0.0-0.2) /100WBC Sodium 138 (135-145) mmol/L Potassium 3.3 (3.3-5.1) mmol/L Chloride 99 (96-108) mmol/L Carbon Dioxide 25 (22-29) mmol/L Anion Gap 17 (12-20) BUN 6 L (9-16) mg/dL Creatinine 0.55 (0.5-1.4) mg/dL Estim Creat Clear Calc 147.2 Estimated GFR > 60 Random Glucose 164 H (60-115) mg/dL Calcium 10.1 (8.4-10.2) mg/dL Magnesium 1.6 (1.6-2.6) mg/dL Total Bilirubin 1.8 H (0.0-1.0) mg/dL Direct Bilirubin 0.5 (0.0-0.5) mg/dL AST 57 H (5-31) U/L ALT 61 H (0-31) U/L Alkaline Phosphatase 108 (39-117) U/L Total Protein 8.4 H (6.5-8.0) g/dL Albumin 5.2 H (3.5-5.0) g/dL Lipase 9 (8-78) U/L Beta HCG, Quant < 2 mIU/mL Urine Color Dark Yellow Urine Appearance Turbid Urine pH 5.5 (5.0-9.0) Ur Specific [place] 1.025 (1.005-1.025) Urine Protein 30 (1+) H (Neg-Trace) mg/dL Urine Glucose (UA) Negative (Negative) mg/dL Urine Ketones Trace (Negative) mg/dL Urine Blood Negative (Negative) Urine Nitrite Negative (Negative) Ur Leukocyte Esterase Trace H (Negative) Urine RBC 0-2 (0-2) /HPF Urine WBC 0-5 (0-5) /HPF Ur Squamous Epith Cells 3-5 (0-2) /HPF Other Crystals Present Urine Bacteria None Seen (None Seen) Hyaline Casts 0-2 (0-2) /LPF COVID-19 (MIKAYLA) Negative (Negative) COVID-19 Clin Com See Note Influenza Type A (INNA) Negative (Negative) Influenza Type B (INNA) Negative (Negative) Influenza A & B Note See Note Independent Interpretation I performed an independent interpretation of an: CT Scan Interpretation: I personally interpreted the CT abdomen and pelvis which reveals a mild gomze colitis, hepatomegaly, I agree with the radiologist's interpretation Radiology Impression Discussion of test interpretation with radiology: I have reviewed the radiologist's reading. Radiologist Impression: CT abdomen and pelvis FINDINGS: LUNG BASES: There is motion degradation.. Lung bases are grossly clear. There are no effusions. The heart size normal. Normal GE junction. LIVER, GALLBLADDER, AND BILIARY TREE: The liver is mildly enlarged with mild diffuse fatty infiltration. There is subtle surface lobulation. There is no suspicious focal lesion. There is no intrahepatic or extrahepatic biliary dilatation. The gallbladder is unremarkable with no evidence of radiopaque gallstones, gallbladder wall thickening, or obvious pericholecystic inflammatory changes. PANCREAS: Unremarkable. SPLEEN: Unremarkable. ADRENAL GLANDS: Unremarkable. KIDNEYS AND URETERS: The kidneys are normal in size, shape, and attenuation. No hydronephrosis, hydroureter, or calculi seen. No perinephric stranding. There is a 3 mm nonobstructing calculus in the upper pole of the left kidney. BLADDER: Unremarkable. GASTROINTESTINAL TRACT: There is mild diffuse wall thickening of the colon, with minimal associated hyperemia of the adjacent mesentery, findings suspicious for a pancolitis. The appendix is normal. Small bowel is normal in caliber, course, and appearance. The stomach is largely decompressed. The duodenal sweep is normal. There may be mild rectal wall thickening as well. ABDOMINAL WALL: No significant hernia is appreciated. LYMPH NODES: There is no abnormal lymphadenopathy present. VASCULAR: Unremarkable. PELVIC VISCERA: The uterus and adnexa are unremarkable. OSSEOUS STRUCTURES: No suspicious lytic or blastic bone lesion. There is a broad-based disc bulge with a central herniation at L5-S1. CT/CT abdomen pelvis w IV con IMPRESSION: 1. Findings suspicious for a mild gomez colitis. Would correlate with clinical presentation and symptomatology. This could be infectious or inflammatory in etiology. 2. No additional acute finding in the abdomen or pelvis. 3. Mild hepatomegaly with diffuse fatty infiltration. 4. There is a 3 mm nonobstructing calculus in the upper pole of the left kidney. Electronically signed by: Marcio Mendez MD 09/02/2025 10:52 AM [facility] Dictated By: Marcio Mendez MD Signed By: <Electronically signed by Marcio Mendez MD in OV> 09/02/25 1052 External Record Review External record reviewed: Inpatient record, Office record, Outpatient record and Prior outpatient labs Chronic Conditions Patient?s care impacted by: Hypertension and Other (GERD, peripheral neuropathy,) Medications Administered Discontinued Medications Generic Name Dose Route Start Last Admin Trade Name Freq PRN Reason Stop Dose Admin Diphenhydramine HCl 25 mg 09/02/25 09:49 09/02/25 09:54 Diphenhydramine Hcl 50 Mg/Ml Vial IVPUSH 09/02/25 09:50 25 mg ONCE ONE Administration Lactated Ringer's 1,000 mls @ 999 mls/hr 09/02/25 08:36 09/02/25 08:44 Lr IV 09/02/25 09:36 999 mls/hr .Q1H1M ONE Administration Acetaminophen 1,000 mg in 100 mls @ 400 mls/hr 09/02/25 08:37 09/02/25 09:05 Ofirmev IV 09/02/25 08:51 Infused ONCE ONE Infusion Iohexol 100 ml 09/02/25 10:31 09/02/25 10:31 Iohexol 350 Mg/Ml 100 Ml Infus..Btl IV 09/02/25 10:32 85 ml ONCE ONE Administration Metoclopramide HCl 10 mg 09/02/25 09:49 09/02/25 09:54 Metoclopramide Hcl 10 Mg/2 Ml Vial IVPUSH 09/02/25 09:50 10 mg ONCE ONE Administration Ondansetron HCl 4 mg 09/02/25 08:36 09/02/25 08:40 Ondansetron Hcl 4 Mg/2 Ml Vial IVPUSH 09/02/25 08:37 4 mg ONCE ONE Administration Discharge Plan Discharge Clinical Impression: Colitis Patient Disposition: Home, Self-Care Additional Instructions: You were evaluated in the ED today due to epigastric abdominal pain, nausea and vomiting. Your lab work was reassuring as there was no significant elevation in your white blood cell count indicative of systemic infection. The CT abdomen and pelvis suggests gomez colitis or inflammation of your intestines. Due to your persistent worsening symptoms, you are being prescribed a 7 day course of ciprofloxacin and metronidazole which are antibiotics for bacterial coverage. Please follow up with your primary care doctor to ensure resolution of your symptoms. You have follow up with gastroenterologists at the end of this month, please make sure you go to this appointment for further evaluation and management of your abdominal pain. Keep a bland diet such as toast, apples, bananas, rice, brothy soups and advance your diet as your symptoms resolve. Please return to the emergency department if you experience fevers over 100.4?, worsening abdominal pain, worsening vomiting, chest pain, shortness of breath, or any new/worsening/concerning symptoms. Prescriptions: New ciprofloxacin HCl 500 mg tablet 500 mg PO Q12H Qty: 14 0RF metronidazole 500 mg tablet 500 mg PO Q8H 7 Days Qty: 21 0RF No Action duloxetine 60 mg capsule,delayed release(DR/EC) 60 mg PO DAILY metoprolol succinate 25 mg tablet extended release 24 hr 25 mg PO DAILY alpha lipoic acid 600 mg capsule 600 mg PO DAILY dextroamphetamine-amphetamine 20 mg tablet 1 tab PO DAILY ondansetron 4 mg tablet,disintegrating 4 mg PO DAILY PRN (Reason: nausea and vomiting) 5 Days Qty: 10 0RF ondansetron 4 mg tablet,disintegrating 4 mg PO Q6H PRN (Reason: nausea and vomiting) Qty: 10 0RF omeprazole 40 mg capsule,delayed release(DR/EC) 40 mg PO DAILY Qty: 30 0RF sucralfate 1 gram tablet 1 g PO TID PRN (Reason: upper abdominal pain) Qty: 60 0RF cyanocobalamin (vitamin B-12) 1,000 mcg tablet 1,000 mcg PO DAILY folic acid 1 mg tablet 1 mg PO DAILY Print Language: [place]
[2025-09-02] MEDS: Lactated Ringers 1,000 ML 999 ML IV (08:44)
[2025-09-02 08:49] LABS: Lipase 9 U/L (8-78)
[2025-09-02 08:59] LABS: Appearance Urine Turbid; Glucose Urine UA Negative (Negative); PH 5.5 (5.0-9.0); Specific Gravity - Urine 1.025 (1.005-1.025); UMIC TRIGGER UACC YES
[2025-09-02 09:10] LABS: COVID-19 Test Negative (Negative); IDNOW Serial# 58CA691E
[2025-09-02 09:11] LABS: Other Crystals Urine Present
[2025-09-02 09:12] LABS: IDNOW Serial# 55D5AD1C; Influenza B2 Negative (Negative)
[2025-09-02 09:56] VITALS: BP 136/95; PULSE 75; RESP 18; O2SAT 100
[2025-09-02] MEDS: iohexoL 350 MG/ML 100 ML INFUS..BTL IV (10:31)
[2025-09-02 12:20] VITALS: BP 118/77; PULSE 98; RESP 20; TEMP 36.8; O2SAT 97
== END 2025-09-02 12:21 | disposition home or self-care (01) ==
PROVIDERS: Emergency Provider Emergency Medicine; PCP Internal Medicine
DX: K52.9 Noninfective gastroenteritis and colitis, unspecified (principal); R10.9 Unspecified abdominal pain; R11.10 Vomiting, unspecified; Z03.818 Encounter for observation for suspected exposure to other biological agents ruled out; Z79.899 Other long term (current) drug therapy
CPT/HCPCS: 36415; 74177; 80053; 81001; 82248; 83690; 83735; 84702; 85025; 87502; 87635; 96361; 96365; 96375; 99285; J0131; J1200; J2405; J2765; J7120; Q9967

== ENCOUNTER → 2025-09-02 09:49 | Outpatient (BNV) | payer OTHER, SELFPAY | PROVIDERS: Emergency Provider Emergency Medicine; PCP Internal Medicine; Visit Provider Radiology Diagnostic Radiology | DX: R16.0 Hepatomegaly, not elsewhere classified (principal); N20.0 Calculus of kidney | CPT/HCPCS: 74177 ==

== ENCOUNTER 2025-10-27 06:41 | Emergency (ER) | payer OTHER, SELFPAY ==
[2025-10-27 06:45] VITALS: BP 144/90; PULSE 99; RESP 20; TEMP 36.3; O2SAT 99; BMI 29.0
--- NOTE | 2025-10-27 07:03 | PC.NURSE ---
No answer to name for a room at 0702am.
--- OUTSIDE RECORDS SUMMARY | 2025-10-27 07:26 | XMS_ITS | Clinical Summary ---
Author Organization [facility] Address [address] [place] [phone] Phone Care Team Providers Care Respiratory Medicine Physician Name Role Phone Unavailable Primary Care Provider [...] Vaccines Completed 08/01/2000, 03/06/2000, 01/31/2000 Meningococcal Vaccine Completed 06/27/2007 Hepatitis A Vaccines Aged Out No long er eligible based on patient's age to complete this topic Men B Vaccine Aged Out No longer elig ible based on patient's age to complete this topic Pneumococcal Vaccine Aged Out No long er eligible based on patient's age to complete this topic
--- OUTSIDE RECORDS SUMMARY | 2025-10-27 07:26 | XMS_ITS | Encounter Summary ---
Author Organization [facility] Address [address] [place] [phone] Phone Care Team Providers Care Silverlight Developer Name Role Phone Praveena Schreiber MD Primary Care Provider Encounter Details Date Type Department Care Team (Late st Contact Info) Description 06/13/2017 Conversion Encounter [facility] [place] [address] [place] [address] Social History Tobacco Use Types Packs/Day Years [...] on filedocumented in this encounter Care Teams Silverlight Developer Relationship Specialty Start Date End Date Praveena Schreiber MD [address] [place] [address] PCP - General 06/07/17 02/03/23 documented as of this encounter
--- NOTE | 2025-10-27 07:27 | PC.NURSE ---
No answer to name for room at 0727am.
== END 2025-10-27 07:29 | disposition left against medical advice (07) ==
PROVIDERS: Emergency Provider Emergency Medicine; PCP Internal Medicine
DX: R11.2 Nausea with vomiting, unspecified (principal); R19.7 Diarrhea, unspecified; Z53.21 Procedure and treatment not carried out due to patient leaving prior to being seen by health care provider
CPT/HCPCS: 99281